=== PATIENT | female | born 1980 | race Caucasian/White ===

== ENCOUNTER 2016-05-07 15:23 | Emergency (ER) | payer OTHER ==
[2016-05-07 17:36] VITALS: BP 118/86
--- NOTE | 2016-05-07 18:07 | UC ---
FLU HPI - HPI Summary HPI Summary: DAY 2 OF COUGH, CONGESTION, ANTHONY, BODY ACHES, FEVER 102.7, CHILLS, LIGHT SENSITIVITY AND DECREASED APPETITE. NO FLU SHOT THIS SEASON. - History of Current Complaint Chief Complaint: UC Stated Complaint: COUGH CHILLS Time Seen by Provider: 05/07/16 17:36 Hx Obtained From: Patient Hx Last Menstrual Period: 05/03/16 Onset/Duration: Sudden Onset, Lasting Days, Still Present Severity Currently: Moderate Severity Initially: Severe Pain Intensity: 10 Pain Scale Used: 0-10 Numeric Associated Signs & Symptoms: Positive: Fever, Myalgia, Cough, Nasal Congestion, Headache - Allergy/Home Medications Allergies/Adverse Reactions: Allergies Allergy/AdvReac Type Severity Reaction Status Date / Time Penicillins Allergy Intermediate rash,hives,diarrea, Verified 05/07/16 17:27 sob Home Medications: Home Medications Ibuprofen [Ibuprofen 200 MG] 600 mg PO Q6H PRN 05/07/16 [History Confirmed 05/07] PMH/Surg Hx/FS Hx/Imm Hx Endocrine History Of: Reports: Thyroid Disease - CANCER, Hypothyroidism Denies: Diabetes Cardiovascular History Of: Denies: Cardiac Disorders, Hypertension, Pacemaker/ICD Respiratory History Of: Reports: Asthma Denies: COPD GI/ History Of: Denies: Ulcer Psychological History Of: Reports: Anxiety - NO MEDICATION FOR AT THIS TIME - Surgical History Surgical History: Yes Surgery Procedure, Year, and Place: 3x c-sections. full thyroidectomy. sinus surgery - Family History Known Family History: Negative: Hypertension, Diabetes - Social History Alcohol Use: Occasionally Substance Use Type: None Smoking Status (MU): Never Smoked Tobacco Have You Smoked in the Last Year: No - Immunization History Most Recent Influenza Vaccination: 2014 Most Recent Tetanus Shot: UNSURE Most Recent Pneumonia Vaccination: UNSURE Review of Systems Constitutional: Fever, Chills, Fatigue ENT: Nasal Discharge Respiratory: Cough Cardiovascular: Negative Gastrointestinal: Negative Musculoskeletal: Myalgia Neurological: Headache All Other Systems Reviewed And Are Negative: Yes Physical Exam Triage Information Reviewed: Yes Appearance: Well-Nourished, Ill-Appearing - MODERATELY Vital Signs: Initial Vital Signs Temp 100.1 F 05/07/16 17:30 Pulse 106 05/07/16 17:30 Resp 16 05/07/16 17:30 BP 118/86 05/07/16 17:30 Pulse Ox 100 05/07/16 17:30 Vital Signs Reviewed: Yes Eyes: Positive: Conjunctiva Clear ENT: Positive: Hearing grossly normal Neck: Positive: Supple, Nontender, No Lymphadenopathy Respiratory Exam: Normal Cardiovascular: Positive: Tachycardia Abdomen Description: Positive: Soft Musculoskeletal: Positive: No Edema Neurological: Positive: Alert Psychological: Positive: Age Appropriate Behavior Skin: Negative: rashes Diagnostics - Laboratory Diagnostic Studies Completed/Ordered: RAPID FLU - POS FLU A Flu Course/Dx - Differential Dx/Diagnosis Provider Diagnoses: INFLUENZA A Discharge - Discharge Plan Condition: Stable Disposition: HOME Prescriptions: Oseltamivir CAP* [Tamiflu CAP*] 75 mg PO BID #9 cap Patient Education Materials: Influenza (ED) Forms: *Work Release Referrals: Conchis Edwards MD [Medical Doctor] - If Needed Additional Instructions: SWAB POSITIVE FLU A. REST, HYDRATE, OTC MEDS FOR FEVER, HEADACHE AND BODY ACHES.
[2016-05-07] MEDS: Ibuprofen TAB* 600 MG PO ONE ×2 (18:11→18:12)
[2016-05-07] MEDS: Oseltamivir CAP* 75 MG PO ONE (18:11)
== END 2016-05-07 18:18 | disposition home or self-care (01) ==
LOC: UCEAST 15:23
DX: J10.1 Influenza due to other identified influenza virus with other respiratory manifestations (principal); Z88.0 Allergy status to penicillin
CPT/HCPCS: 87502; 99212; A9270-GY; G0463

== ENCOUNTER 2016-09-18 19:34 | Emergency (ER) | payer OTHER ==
[2016-09-18] MEDS ORDERED: NS 0.9% 1000 ML* 1,000 ML IV ONE (23:45)
[2016-09-18 23:58] LABS: Hematocrit 38 % (35-47); Hemoglobin 12.8 g/dl (12.0-16.0); Mean Corpuscular HGB Conc 33 g/dl (31-36); Mean Corpuscular Hemoglobin 29 pg (27-31); Mean Corpuscular Volume 87 fL (80-97); Mean Platelet Volume 9 um3 (7.4-10.4); Red Blood Count 4.44 10^6/ul (4.0-5.4); Red Cell Distribution Width 14 % (10.5-15); White Blood Count 8.2 10^3/ul (3.5-10.8)
[2016-09-19 00:10] LABS: ALT 12 U/L (7-52); AST 12 U/L (13-39); Albumin 4.2 g/dL (3.2-5.2); Alkaline Phosphatase 74 U/L (34-104); Amylase 32 U/L (29-103); Anion Gap 5 mmol/L (2-11); BUN/Creatinine Ratio 21.1 (8-20); Blood Urea Nitrogen 16 mg/dL (6-24); C Reactive Protein < 1.00 mg/L (< 5.00); CO2 Carbon Dioxide 29 mmol/L (22-32); Calcium 8.9 mg/dL (8.6-10.3); Chloride 101 mmol/L (101-111); EGFR African American 112.7 (>60); EGFR Non-African American 87.6 (>60); Globulin 2.8 g/dL (2-4); Glucose 79 mg/dL (70-100); Lipase 43 U/L (11.0-82.0); Potassium 3.4 mmol/L (3.5-5.0); Sodium 135 mmol/L (133-145)
[2016-09-19 01:11] LABS: Urine Bacteria 1+ (Absent); Urine Bilirubin Negative (Negative); Urine Glucose Negative (Negative); Urine Nitrite Negative (Negative)
[2016-09-19] MEDS ORDERED: Iohexol 300* (CONTRAST) 10 ML SDV IV ONE (01:25)
[2016-09-19] MEDS ORDERED: HYDROcodone/ACETAMIN 5-325 MG* 1 TAB PO ONE (02:45)
--- NOTE | 2016-09-19 02:58 | ED ---
Nelda Ta Rebecca, scribed for Elise Bland MD on 09/18/16 at 2248 . Abdominal Pain/Female - HPI Summary HPI Summary: Pt is a 35 y/o F who presents to ED c/o abd pain. Pain began gradually 3 months ago and has been intermittent since onset with the most recent episode being tonight at 1800. Pain is in the umbilical region with radiation to the shoulder blades. Pain is currently not present, but upon triage it had been severe, ranked 8/10. Episodes typically last 2 hours after eating. Sx are only present after eating food, alleviated by nothing. Additionally c/o diarrhea. Denies nausea and fever. PSHx gastric sleeve (October,) by Dr. Cruz. Was evaluated by Dr. Cruz who scheduled her for an US on October 04 to look at the gallbladder. - History of Current Complaint Chief Complaint: EDAbdPain Stated Complaint: ABD/SHOULDER BLADE PAIN Time Seen by Provider: 09/18/16 22:47 Hx Obtained From: Patient Hx Last Menstrual Period: 09/09/2016 Onset/Duration: Sudden Onset, Resolved Timing: Intermittent Episode Lasting - 2 hours Severity Initially: Severe Severity Currently: None Pain Intensity: 0 Pain Scale Used: 0-10 Numeric Location: Epigastric Radiates: Yes Radiates to: Other - Shoulder blades Aggravating Factor(s): Food Alleviating Factor(s): Nothing Associated Signs and Symptoms: Positive: Diarrhea. Negative: Fever, Nausea Allergies/Adverse Reactions: Allergies Allergy/AdvReac Type Severity Reaction Status Date / Time Penicillins Allergy Intermediate rash,hives,diarrea, Verified 09/18/16 19:51 sob PMH/Surg Hx/FS Hx/Imm Hx Endocrine/Hematology History: Reports: Hx Thyroid Disease - CANCER Denies: Hx Diabetes Cardiovascular History: Denies: Hx Hypertension, Hx Pacemaker/ICD Respiratory History: Reports: Hx Asthma, Hx Sleep Apnea Denies: Hx Chronic Obstructive Pulmonary Disease (COPD) GI History: Reports: Hx Gastroesophageal Reflux Disease - ON MEDICATION FOR Denies: Hx Ulcer Sensory History: Denies: Hx Contacts or Glasses, Hx Hearing Aid Opthamlomology History: Denies: Hx Contacts or Glasses Psychiatric History: Reports: Hx Anxiety - NO MEDICATION FOR AT THIS TIME - Cancer History Cancer Type, Location and Year: Thyroid cancer - Surgical History Surgery Procedure, Year, and Place: 3x c-sections. full thyroidectomy. sinus surgery. gastric sleeve 2016 Hx Anesthesia Reactions: Yes - NAUSEA AND VOMITING Infectious Disease History: No Infectious Disease History: Denies: Hx Clostridium Difficile, Hx Hepatitis, Hx Human Immunodeficiency Virus (HIV), Hx of Known/Suspected MRSA, Hx Shingles, Hx Tuberculosis, Hx Known/ Suspected VRE, Hx Known/Suspected VRSA, History Other Infectious Disease, Traveled Outside the [place] in Last 30 Days - Family History Known Family History: Negative: Hypertension, Diabetes - Social History Alcohol Use: Occasionally Substance Use Type: Reports: None Smoking Status (MU): Never Smoked Tobacco Have You Smoked in the Last Year: No Review of Systems Negative: Fever Positive: Abdominal Pain, Diarrhea. Negative: Nausea All Other Systems Reviewed And Are Negative: Yes Physical Exam - Summary Physical Exam Summary: General: Well appearing, no pain distress Skin: Warm, Skin Color Reflects Adequate Perfusion, Dry Eyes: EOMI, SILVERIO ENT: Pharynx normal, TMs normal Neck: Supple, nontender Respiratory: CTA, breath sounds present, no rhonchi, no wheezes, no rales Cardiovascular: RRR, no murmur, no rub, no gallop Abdomen: Soft, Non-distended, no guarding, no rebound, some periumbilical discomfort Bowel: Present Musculoskeletal: VENKATESH, No edema Neuro: Sensory/motor intact, A&Ox3, CN intact 2-12 Psych: Affect/mood appropriate Triage Information Reviewed: Yes Vital Signs On Initial Exam: Initial Vitals Temp Pulse Resp BP Pulse Ox 98.0 F 80 18 144/88 100 09/18/16 19:50 09/18/16 19:50 09/18/16 19:50 09/18/16 19:50 09/18/16 19:50 Vital Signs Reviewed: Yes Diagnostics - Vital Signs Vital Signs Temp Pulse Resp BP Pulse Ox 09/18/16 21:35 98.7 F 52 18 132/93 100 09/18/16 19:50 98.0 F 80 18 144/88 100 - Laboratory Lab Results: Lab Results 09/18/16 09/18/16 09/18/16 Range/Units 22:50 22:50 23:43 WBC 8.2 (3.5-10.8) 10^3/ul RBC 4.44 (4.0-5.4) 10^6/ul Hgb 12.8 (12.0-16.0) g/dl Hct 38 (35-47) % MCV 87 (80-97) fL MCH 29 (27-31) pg MCHC 33 (31-36) g/dl RDW 14 (10.5-15) % Plt Count 207 (150-450) 10^3/ul MPV 9 (7.4-10.4) um3 Neut % (Auto) 65.8 (38-83) % Lymph % (Auto) 28.8 (25-47) % [place] % (Auto) 3.9 (1-9) % Eos % (Auto) 0.8 (0-6) % Baso % (Auto) 0.7 (0-2) % Absolute Neuts (auto) 5.4 (1.5-7.7) 10^3/ul Absolute Lymphs (auto) 2.4 (1.0-4.8) 10^3/ul Absolute Monos (auto) 0.3 (0-0.8) 10^3/ul Absolute Eos (auto) 0.1 (0-0.6) 10^3/ul Absolute Basos (auto) 0.1 (0-0.2) 10^3/ul Absolute Nucleated RBC 0.01 10^3/ul Nucleated RBC % 0.1 Sodium 135 (133-145) mmol/L Potassium 3.4 L (3.5-5.0) mmol/L Chloride 101 (101-111) mmol/L Carbon Dioxide 29 (22-32) mmol/L Anion Gap 5 (2-11) mmol/L BUN 16 (6-24) mg/dL Creatinine 0.76 (0.51-0.95) mg/dL Est GFR ( Amer) 112.7 (>60) Est GFR (Non-Af Amer) 87.6 (>60) BUN/Creatinine Ratio 21.1 H (8-20) Glucose 79 (70-100) mg/dL Lactic Acid 0.4 L (0.5-2.0) mmol/L Calcium 8.9 (8.6-10.3) mg/dL Total Bilirubin 0.60 (0.2-1.0) mg/dL AST 12 L (13-39) U/L ALT 12 (7-52) U/L Alkaline Phosphatase 74 (34-104) U/L C-Reactive Protein < 1.00 (< 5.00) mg/L Total Protein 7.0 (6.4-8.9) g/dL Albumin 4.2 (3.2-5.2) g/dL Globulin 2.8 (2-4) g/dL Albumin/Globulin Ratio 1.5 (1-3) Amylase 32 (29-103) U/L Lipase 43 (11.0-82.0) U/L Beta HCG, Quant 0.75 mIU/mL Urine Color Urine Appearance Urine pH (5-9) Ur Specific [place] (1.010-1.030) Urine Protein (Negative) Urine Ketones (Negative) Urine Blood (Negative) Urine Nitrate (Negative) Urine Bilirubin (Negative) Urine Urobilinogen (Negative) Ur Leukocyte Esterase (Negative) Urine WBC (Auto) (Absent) Urine RBC (Auto) (Absent) Ur Squamous Epith Cells (Absent) Urine Bacteria (Absent) Urine Glucose (Negative) 09/19/16 Range/Units 00:45 WBC (3.5-10.8) 10^3/ul RBC (4.0-5.4) 10^6/ul Hgb (12.0-16.0) g/dl Hct (35-47) % MCV (80-97) fL MCH (27-31) pg MCHC (31-36) g/dl RDW (10.5-15) % Plt Count (150-450) 10^3/ul MPV (7.4-10.4) um3 Neut % (Auto) (38-83) % Lymph % (Auto) (25-47) % [place] % (Auto) (1-9) % Eos % (Auto) (0-6) % Baso % (Auto) (0-2) % Absolute Neuts (auto) (1.5-7.7) 10^3/ul Absolute Lymphs (auto) (1.0-4.8) 10^3/ul Absolute Monos (auto) (0-0.8) 10^3/ul Absolute Eos (auto) (0-0.6) 10^3/ul Absolute Basos (auto) (0-0.2) 10^3/ul Absolute Nucleated RBC 10^3/ul Nucleated RBC % Sodium (133-145) mmol/L Potassium (3.5-5.0) mmol/L Chloride (101-111) mmol/L Carbon Dioxide (22-32) mmol/L Anion Gap (2-11) mmol/L BUN (6-24) mg/dL Creatinine (0.51-0.95) mg/dL Est GFR ( Amer) (>60) Est GFR (Non-Af Amer) (>60) BUN/Creatinine Ratio (8-20) Glucose (70-100) mg/dL Lactic Acid (0.5-2.0) mmol/L Calcium (8.6-10.3) mg/dL Total Bilirubin (0.2-1.0) mg/dL AST (13-39) U/L ALT (7-52) U/L Alkaline Phosphatase (34-104) U/L C-Reactive Protein (< 5.00) mg/L Total Protein (6.4-8.9) g/dL Albumin (3.2-5.2) g/dL Globulin (2-4) g/dL Albumin/Globulin Ratio (1-3) Amylase (29-103) U/L Lipase (11.0-82.0) U/L Beta HCG, Quant mIU/mL Urine Color Yellow Urine Appearance Cloudy Urine pH 5.0 (5-9) Ur Specific [place] 1.030 (1.010-1.030) Urine Protein Negative (Negative) Urine Ketones Trace H (Negative) Urine Blood Negative (Negative) Urine Nitrate Negative (Negative) Urine Bilirubin Negative (Negative) Urine Urobilinogen Negative (Negative) Ur Leukocyte Esterase Trace H (Negative) Urine WBC (Auto) 1+(6-10/hpf) H (Absent) Urine RBC (Auto) 1+(3-5/hpf) H (Absent) Ur Squamous Epith Cells Present H (Absent) Urine Bacteria 1+ H (Absent) Urine Glucose Negative (Negative) Result Diagrams: 09/18/16 22:50 09/18/16 22:50 Lab Statement: Any lab studies that have been ordered have been reviewed, and results considered in the medical decision making process. - CT CT Abd/Pel CT Interpretation: No Acute Changes - Normal postoperative appearance of the stomach. Mild splenomegaly. No definite acute pathology. CT Interpretation Completed By: Radiologist - Ultrasound No standard instances Ultrasound Interpretation Completed By: Radiologist - Gallbladder US: The liver is enlarged measuring 18.5 cm in length. Liver contour and echogenicity are normal. No intrahepatic biliary dilation. No hepatic masses visualized. The portal and hepatic veins are patent. The common bile duct is within normal limits measuring 3.6 cm. Multiple gallstones. The gallbladder wall is normal in thickness measuring 1.8 mm. No earicholecystic fluid. Negative sonographic Viera's sign reported. The right kidney and visualized portions of the pancreatic head and body are unremarkable. The pancreatic tail is partially obscured by overlying bowel gas. Visualized portions of the abdominal aorta and IVC are unremarkable. Re-Evaluation - Re-Evaluation First Eval Re-Evaluation Time: 02:47 Change: Improved Comment: Discussed results and findings with the patient. She continues to be without pain. Discussed D/C plan with the patient. Abdominal Pain Fem Course/Dx - Course Course Of Treatment: 35 yo female s/p gastric sleeve with jorge umbilical tenderness u/s did show gall stones with out a viera sign labs normal and ct abd/pelvis normal. Pt given a few norco to go, close followup with [facility] - Diagnoses Provider Diagnoses: Abdominal pain, Gallstones Discharge - Discharge Plan Condition: Stable Disposition: HOME Patient Education Materials: Gallstones (ED), Abdominal Pain (ED) Referrals: Conchis Edawrds MD [Primary Care Provider] - 3 Days The documentation as recorded by the Nelda ortega Rebecca accurately reflects the service I personally performed and the decisions made by Baldo ferreira Justine, MD.
[2016-09-19 03:16] VITALS: BP 131/83
--- NOTE | 2016-09-19 08:23 | RAD ---
Indication: Abdominal pain. Post gastric sleeve bariatric surgery. Comparison: Subsequent abdomen CT September 19, 2016. Technique: RIGHT upper quadrant ultrasound. Report: Appropriate direction flow documented in the portal and hepatic veins. 18.5 cm liver is normal in echogenicity. Negative for focal hepatic lesions. Negative for intrahepatic biliary dilatation. 3.6 mm common bile duct. No ductal stones visualized. Adequately distended gallbladder with innumerable dependent shadowing stones. Normal gallbladder wall thickness at 1.8 mm. Negative for pericholecystic fluid. Negative for sonographic Viera's sign. The pancreatic tail is partially obscured due to bowel gas with the visualized pancreas unremarkable. Negative for ascites. 12.1 cm RIGHT kidney is unremarkable. IMPRESSION: Cholelithiasis without secondary findings to favor acute cholecystitis.
--- NOTE | 2016-09-19 08:42 | RAD ---
INDICATION: Periumbilical pain. Post gastric sleeve bariatric surgery in November 2015. History of thyroid carcinoma. Cholelithiasis on RIGHT upper quadrant ultrasound September 18, 2016. COMPARISON: September 18, 2016 RIGHT upper quadrant ultrasound and May 21, 2008 CT. TECHNIQUE: Multidetector CT images were obtained from the lung bases to the ischial tuberosities with 100 mL Omnipaque 300 IV and oral contrast. Multiplanar reformation. REPORT: 4 mm nodule at the lateral basal segment of the LEFT lower lobe on image 1 is unchanged compared with the 2009 exam without concern. Unremarkable liver. Negative for biliary dilatation. Gallstones visualized ultrasound are CT occult. No CT abnormality of the gallbladder. Unremarkable pancreas. Top normal 12.5 cm length spleen without change. Postsurgical change of gastric sleeve procedure. Negative for CT abnormality of the upper GI, small bowel, retrocecal appendix, or colon. Enteric contrast extends to the rectum. Negative for ascites, free air, or significant hernias. Normal adrenal glands. Unremarkable kidneys with symmetric nephrograms and pyelograms. No suspicious finding along the course of the nondilated ureters. Unremarkable partially distended urinary bladder. 8.6 x 4.9 x 7.3 cm anteverted uterus. Moderate fluid present in the endometrial cavity. Surgical clip at the RIGHT adnexal region. No adnexal region lesions evident. Negative for lymphadenopathy. Normal diameter abdominal aorta and iliac arteries. Physiologic distention of the IVC. Negative for suspicious osseous lesions. IMPRESSION: 1. Postsurgical change of gastric sleeve bariatric surgery. No acute pathologic finding of the alimentary tract evident. 2. Gallstones visualized ultrasound are CT occult. No CT abnormality of the gallbladder. 3. Top normal size spleen without change compared with the 2009 exam. Negative for lymphadenopathy.
== END 2016-09-19 03:16 | disposition home or self-care (01) ==
LOC: ED 19:34
DX: R10.13 Epigastric pain (principal); K80.80 Other cholelithiasis without obstruction; Z32.02 Encounter for pregnancy test, result negative; R19.7 Diarrhea, unspecified; J45.909 Unspecified asthma, uncomplicated; K21.9 Gastro-esophageal reflux disease without esophagitis; F41.9 Anxiety disorder, unspecified; Z85.850 Personal history of malignant neoplasm of thyroid; E89.0 Postprocedural hypothyroidism; Z98.84 Bariatric surgery status; Z88.0 Allergy status to penicillin
CPT/HCPCS: 36415; 74177; 76705; 80053; 81003; 81015; 82150; 83605; 83690; 84702; 85025; 86140; 87086; 99283; Q9967

== ENCOUNTER 2016-09-26 13:08 | Day surgery (SDC) | payer OTHER ==
--- NOTE | 2016-09-21 17:46 | HP ---
CC: Tad Dempsey * HISTORY AND PHYSICAL: DATE OF ADMISSION/SURGERY: 09/26/16 PATIENT OF: Dr. Alexandre Cruz. (DICTATED BY TAMARA KOLB) CHIEF COMPLAINT: Symptomatic cholelithiasis and biliary colic. HISTORY OF PRESENT ILLNESS: Margaret is a pleasant 35-year-old female who is well known to our practice from prior laparoscopic sleeve gastrectomy back in November 2015. The patient has done extremely well since her bariatric surgery with total weight loss of approximately 100 pounds. She reports occasional episodes of right upper quadrant and epigastric abdominal pain on and off for the past few months. She described it as a dull aching pain that converts to sharp episodes usually postprandial especially after pizza or other fatty meals. Pain typically localized to the right upper quadrant and epigastric area with radiation to her back with associated nausea and occasional vomiting. She also has noticed significant changes in her bowel habits mostly with loose bowel movement and diarrhea as well as more abdominal bloating. On a couple of occasions, she also noticed a light- colored loose stool as well as dark tea-colored urine, but denied any jaundice, fever, or chills. She had a really significant episode of pain 3 days ago, for which she went to the emergency room for evaluation. She had a right upper quadrant sonogram that revealed evidence of cholelithiasis without any evidence of acute cholecystitis or common bile duct dilatation. Given her ongoing symptoms, the patient was recommended to follow up with Dr. Cruz to discuss gallbladder surgery. She was seen earlier this week by Dr. Cruz and found to be a good candidate for a laparoscopic cholecystectomy, for which she presented to the office today to discuss surgery. Since her ED visit earlier this week, the patient has done much better by avoiding any fatty food intake. She otherwise is a relatively healthy 35-year-old female. PAST MEDICAL HISTORY: As mentioned above. Significant for morbid obesity, for which she had a laparoscopic sleeve gastrectomy with almost a 100-pound weight loss since back in November 2015. She also has a history of GERD, hypothyroidism , and cholelithiasis. PAST SURGICAL HISTORY: Significant for: 1. Total thyroidectomy back in 2010. 2. Laparoscopic sleeve gastrectomy in November 2015. 3. Septoplasty and sinus surgery. 4. She also had a section 3 times as well as dilatation and curettage of her cervix. CURRENT MEDICATIONS: Her medications at home include: 1. Synthroid 37 mcg 1 tablet once daily. 2. ProAir HFA 180 mcg 2 puffs by mouth every 4 hours if needed for shortness of breath and the patient reports that she has used it maybe once or twice since her surgery last year. 3. She is also on Biotin 1 tablet once daily. 4. Vitamin D once daily. 5. Centrum Ultra Women Multivitamin 2 tablets once a day. 6. Vitamin B12 one tablet once daily. ALLERGIES: She is allergic to PENICILLIN. FAMILY HISTORY: She denies any family history of gallbladder disease. SOCIAL HISTORY: The patient is . She never smoked. She drinks alcohol on occasion, and caffeine intake is minimal. REVIEW OF SYSTEMS: See HPI, otherwise negative. She denies any headache, dizziness, blurred vision, or double vision. No sore throat, shortness of breath, cough, or wheezing. No chest pain, palpitation, or syncope. She admits to right upper quadrant and epigastric pain with radiation to her back and associated nausea and occasional vomiting, but denies any fever or chills. She also notes occasional changes in the color of stool and urine, but denies any visible jaundice. No flank pain, dysuria, hematuria, or urinary frequency. PHYSICAL EXAMINATION GENERAL: She is a pleasant, healthy appearing young female in no acute distress or discomfort at the time of this visit. VITAL SIGNS: Today was blood pressure of 122/82, respirations of 16, pulse of 78, temperature of 98.6. She weighs 157 pounds on a 5-foot 6-inch frame with BMI of 25. HEENT: Sclerae anicteric. PERRLA. EOMs intact. Oropharynx is pink and moist with no exudate. NECK: Supple. Trachea midline. No cervical adenopathy, thyromegaly, or JVD. LUNGS: Clear to auscultation bilaterally. No rales, wheezes, or rhonchi noted. HEART: Regular rate and rhythm. Normal S1 and S2 without rubs, murmurs, or gallops. BACK: Normal curvature. No CVA tenderness. BREAST EXAM: Deferred at this time. ABDOMEN: Soft and nondistended. There is very mild right upper quadrant and epigastric tenderness on palpation, but no guarding, rigidity, or rebound tenderness noted. Incisions from prior sleeve gastrectomy noted, well healed. There is no evidence of any ventral hernias, masses, or hepatosplenomegaly. Viera's sign was negative. EXTREMITIES: Without cyanosis, clubbing, or edema. RECTAL: Exam deferred at this time. NEUROLOGIC: Grossly intact. IMPRESSION: A 35-year-old female who underwent laparoscopic sleeve gastrectomy in November 2015 with successful weight loss up to 100 pounds up to date, who has signs and symptoms consistent with biliary colic and symptomatic cholelithiasis. PLAN: We discussed with the patient proceeding with a laparoscopic cholecystectomy to be performed by Dr. Cruz sometime next week. The rationale, indications, risks, and benefits of surgery were discussed with her today. Risks include but not limited to infection, bleeding, or injury to adjacent structures. She seems to be well informed and wishes to proceed with surgery. She was advised to continue her diet restriction regarding fatty food intake and she will be scheduled for her surgery next Sunday on 09/26/16, and we will plan to see her postoperatively a week after her surgery. TAMARA KOLB [id number]/[facility] [place] #: [id number] [facility] CENTERAkin
[~2016-09-26 13:08] MED LIST: Buffered Lidocaine 0.9% SYRIN* 5 ML/SYR SYRINGE INTRADERM ONE; Buffered Lidocaine 0.9% SYRIN* 5 ML/SYR SYRINGE ONE; Clindamycin 900 MG IVPREMIX(* 900 MG/50 ML SDV IV ONE
[2016-09-26] MEDS ORDERED: Bupivacaine 0.5% W/EPI SDV* 10 ML VIAL INJ ONE (13:17)
[2016-09-26] MEDS ORDERED: Midazolam* 1 MG/ML 5 ML VIAL (5 MG) ONE (13:57)
[2016-09-26] MEDS ORDERED: Scopolamine 1.5 mg* PATCH ONE (13:57)
[2016-09-26] MEDS ORDERED: fentaNYL* 50 MCG/ML 2 ML VIAL (100 MCG VIAL) ONE ×2 (14:02→14:27)
[2016-09-26] MEDS ORDERED: Propofol* 10 MG/ML 20 ML BTL IV PUSH ONE (14:02)
[2016-09-26] MEDS ORDERED: Dexamethasone IV* 4 MG/ML 1 ML (4 MG) ONE (14:02)
[2016-09-26] MEDS ORDERED: Atracurium* 10 MG/ML 10 ML VIAL ONE (14:02)
[2016-09-26] MEDS ORDERED: Ketorolac INJ* 30 MG/ML 1 ML VIAL ONE (14:46)
[2016-09-26] MEDS ORDERED: oxyCODONE TAB* 5 MG TAB PO PRN (14:48)
[2016-09-26] MEDS ORDERED: HYDROmorphone* 1 MG/ML 1 ML SYR IV PRN (14:48)
[2016-09-26] MEDS ORDERED: fentaNYL* 50 MCG/ML 2 ML VIAL (100 MCG VIAL) IV PRN (14:48)
[2016-09-26] MEDS ORDERED: HYDROcodone/ACETAMIN 5-325 MG* 1 TAB PO PRN (14:48)
[2016-09-26] MEDS ORDERED: DiMENhydriNATE IV* 50 MG/ML VIAL IV PUSH PRN (14:48)
[2016-09-26] MEDS ORDERED: Ondansetron INJ* 2 MG/ML VIAL IV PRN (14:48)
[2016-09-26] MEDS ORDERED: Neostigmine Methylsulfate* 2 MG/2 ML SYRINGE ONE (14:50)
[2016-09-26] MEDS ORDERED: Glycopyrrolate IV* 0.2 MG/ML 1 ML VIAL ONE (14:50)
[2016-09-26] MEDS ORDERED: oxyCODONE/Acetamin 5/325 MG* TAB PO PRN (15:36)
[2016-09-26] MEDS ORDERED: Labetalol IV* 5 MG/ML 20 ML VIAL ONE (16:08)
[2016-09-26] MEDS ORDERED: HYDROcodone/ACETAMIN 5-325 MG* 1 TAB ONE (16:43)
[2016-09-26 17:06] VITALS: BP 146/93
--- NOTE | 2016-09-27 14:39 | OP ---
CC: Conchis Edwards MD * DATE OF OPERATION: 09/26/16 - [facility] DATE OF : 84 SURGEON: Alexandre Cruz MD CAGE OPERATOR: TAMARA May ANESTHESIOLOGIST: Sudhir Fuller MD ANESTHESIA: General endotracheal. PRE-OP DIAGNOSIS: Symptomatic cholelithiasis. POST-OP DIAGNOSIS: Symptomatic cholelithiasis. OPERATIVE PROCEDURE: Laparoscopic cholecystectomy. ESTIMATED BLOOD LOSS: Minimal. IV FLUIDS: Crystalloids. SPECIMEN: Gallbladder. DRAINS: None. COMPLICATIONS: None. COUNTS: Instrument, needle, sponge counts correct. DESCRIPTION OF PROCEDURE: The patient was brought to the operating room, placed on the table supine. Sequential compression devices were placed on both lower extremities. General anesthesia was administered. Her abdomen was prepped and draped in the usual sterile fashion. She received appropriate intravenous antibiotics. Local anesthetic was infiltrated into the skin and soft tissue at the incision sites. Entry to the abdomen was using a Veress needle in the right upper quadrant above the umbilical region in the area of her previous scar. After accessing the peritoneal cavity, carbon dioxide was insufflated to a pressure of 15 mmHg. A 5-mm optical trocar was then placed through the same site after removing the Veress needle and under direct visualization, two additional 5-mm trocars were placed in the right upper quadrant and an 11-mm trocar was placed in the subxiphoid position. Inspection of the sleeve gastrectomy site revealed that there was a single adhesion from the antrum to the anterior abdominal wall and this was sharply lysed. The sleeve gastrectomy appeared to be normal. Gallbladder appeared to be distended with no acute inflammatory changes. There were some adhesions of lesser omentum to the gallbladder fundus. The fundus was retracted superiorly. Adhesions were taken down using a combination of sharp blunt dissection and cautery. The peritoneum was incised that was investing gallbladder medially and laterally in order to define the gallbladder wall and to dissect out the infundibulocystic duct junction. The cystic artery was identified and dissected out freely until critical views obtained. Endoscopic clips were placed to doubly clip the cystic duct and cystic artery and then each was divided, and then the gallbladder was freed from its attachments to the liver using the scissors and cauteries, staying in the avascular plane. There was a generous mesentery to the gallbladder, which made the dissection rather straightforward. Once the gallbladder was freed, it was placed into an endoscopic retrieval bag and retrieved through the subxiphoid port site. Inspection revealed the clips to be intact and hemostasis was assured. The ports were removed under direct visualization and carbon dioxide was released. [id number]/[facility] #: [id number] BRITTNY
== END 2016-09-26 17:06 | disposition home or self-care (01) ==
LOC: OR 13:08
PROVIDERS: ATTEND Surgery
DX: K80.10 Calculus of gallbladder with chronic cholecystitis without obstruction (principal); K21.9 Gastro-esophageal reflux disease without esophagitis; E03.9 Hypothyroidism, unspecified; J45.909 Unspecified asthma, uncomplicated; Z98.84 Bariatric surgery status
CPT/HCPCS: 88304; A9270-GY; J1100; J1885; J2250; J2704; J3010

== ENCOUNTER 2017-08-14 13:02 | Emergency (ER) | payer OTHER ==
[2017-08-14] MEDS ORDERED: Thiamine IV 100 MG, Folic Acid IV* 1 MG, Multiple Vitamin IV ADULT* 10 ML in NS 0.9% 10... IV ONE (13:52)
--- NOTE | 2017-08-14 14:12 | ED ---
Abdominal Pain/Female - HPI Summary HPI Summary: Bariatric sleeve patient here with sudden onset abdominal pain and bloating while trying to eat a piece of pizza earlier today. She reports she's eaten pizza many times since her surgery without difficulty and is unsure why she is having this abrupt pain. She reports it's just above her navel and feels sharp. Associated symptom of nausea and bloating. No vomiting. She denies fevers, chills, respiratory symptoms, chest pain, shortness of breath, diarrhea , melena, hematochezia, urinary symptoms, vaginal symptoms. She's had multiple abdominal surgeries including but not limited to cholecystectomy, 2 C-sections and a sleeve bariatric surgery 2 years ago w/ Krystle. She has a history of gastric ulcer which was controlled with omeprazole (still takes) and famotidine (d/c'd). She has since stopped the famotidine and reports her symptoms today do not feel like her previous gastric ulcer. Denies use of NSAIDs, drink alcohol infrequently, denies tobacco. She admits she's been struggling with iron deficiency as of late and has been consulting with Dr. Cotto. She is supposed to follow-up with gastroenterology for an endoscope however this has not been arranged as of yet. - History of Current Complaint Chief Complaint: EDAbdPain Stated Complaint: ABD PAIN Time Seen by Provider: 08/14/17 13:12 Hx Obtained From: Patient Hx Last Menstrual Period: 09/09/2016 Pain Intensity: 9 Allergies/Adverse Reactions: Allergies Allergy/AdvReac Type Severity Reaction Status Date / Time Penicillins Allergy Intermediate Rash Verified 08/14/17 14:28 Home Medications: Home Medications Ascorbic Acid TAB* [Vitamin C TAB*] 500 mg PO DAILY 08/14/17 [History Confirmed 08/14/17] Ferrous Sulfate TAB* 325 mg PO DAILY 08/14/17 [History Confirmed 08/14/17] Ipratropium [place] [Ipratropium [place]] 1 spray NASAL DAILY 08/14/17 [History Confirmed 08/14/17] PMH/Surg Hx/FS Hx/Imm Hx Previously Healthy: Yes Endocrine/Hematology History: Reports: Hx Thyroid Disease - CANCER Denies: Hx Anticoagulant Therapy, Hx Blood Disorders, Hx Diabetes Cardiovascular History: Denies: Hx Hypertension, Hx Pacemaker/ICD Respiratory History: Reports: Hx Asthma, Hx Sleep Apnea - resolved with weight loss Denies: Hx Chronic Obstructive Pulmonary Disease (COPD) GI History: Reports: Hx Gastroesophageal Reflux Disease - ON MEDICATION FOR, Hx Ulcer - tx'd w/ omeprazole and famotidine - followed by [facility]o, Other GI Disorders - s/p Sleeve History: Denies: Hx Dialysis, Hx Renal Disease Sensory History: Denies: Hx Contacts or Glasses, Hx Hearing Aid Opthamlomology History: Denies: Hx Contacts or Glasses Psychiatric History: Reports: Hx Anxiety - NO MEDICATION FOR AT THIS TIME - Cancer History Cancer Type, Location and Year: Thyroid cancer Hx Chemotherapy: No - radiation - Surgical History Surgery Procedure, Year, and Place: 3x c-sections. full thyroidectomy. sinus surgery. gastric sleeve 2016. D&C's Hx Anesthesia Reactions: Yes - NAUSEA AND VOMITING - gets a scopalamine patch in previous surgeries - Immunization History Immunizations Up to Date: Yes Infectious Disease History: No Infectious Disease History: Denies: Hx Clostridium Difficile, Hx Hepatitis, Hx Human Immunodeficiency Virus (HIV), Hx of Known/Suspected MRSA, Hx Shingles, Hx Tuberculosis, Hx Known/ Suspected VRE, Hx Known/Suspected VRSA, History Other Infectious Disease, Traveled Outside the [place] in Last 30 Days - Family History Known Family History: Negative: Hypertension, Diabetes - Social History Occupation: Employed Full-time Lives: With Family Alcohol Use: Occasionally Hx Substance Use: No Substance Use Type: Reports: None Hx Tobacco Use: No Smoking Status (MU): Never Smoked Tobacco Have You Smoked in the Last Year: No Review of Systems Constitutional: Negative Negative: Fever, Chills, Fatigue Eyes: Negative ENT: Negative Cardiovascular: Negative Negative: Palpitations, Chest Pain Respiratory: Negative Positive: Abdominal Pain, Nausea. Negative: Vomiting, Diarrhea Genitourinary: Negative Negative: burning, dysuria, discharge, frequency, flank pain, hematuria, incontinence, pain, urgency Musculoskeletal: Negative Skin: Negative Neurological: Negative Psychological: Normal All Other Systems Reviewed And Are Negative: Yes Physical Exam Triage Information Reviewed: Yes Vital Signs On Initial Exam: Initial Vitals Temp Pulse Resp BP Pulse Ox 99.3 F 84 18 137/93 99 08/14/17 13:03 08/14/17 13:03 08/14/17 13:03 08/14/17 13:03 08/14/17 13:03 Vital Signs Reviewed: Yes Appearance: Positive: Pain Distress Skin: Positive: Warm, Skin Color Reflects Adequate Perfusion, Dry - no generalized pallor Head/Face: Positive: Normal Head/Face Inspection Eyes: Positive: Normal, EOMI, Conjunctiva Clear - anicteric sclera ENT: Positive: Normal ENT inspection, Hearing grossly normal, Pharynx normal - mucosa moist Respiratory/Lung Sounds: Positive: Clear to Auscultation, Breath Sounds Present Cardiovascular: Positive: Normal, RRR Abdomen Description: Positive: No Organomegaly, Soft, Other: - upper ab across TTP - no rebounding; no lower ab tenderness Pelvic Exam: Positive: Other - deferred Musculoskeletal: Positive: Normal, Strength/ROM Intact Neurological: Positive: Normal, Sensory/Motor Intact, Alert, Oriented to Person Place, Time, CN Intact II-III Psychiatric: Positive: Normal Diagnostics - Vital Signs Vital Signs Temp Pulse Resp BP Pulse Ox 08/14/17 13:03 99.3 F 84 18 137/93 99 - Laboratory Result Diagrams: 08/14/17 14:05 08/14/17 14:05 Lab Statement: Any lab studies that have been ordered have been reviewed, and results considered in the medical decision making process. Re-Evaluation - Re-Evaluation Second Eval Change: Improved - pain improved from 9/10 to 4/10 - nausea resolved Abdominal Pain Fem Course/Dx - Course Course Of Treatment: Patient here with sudden onset upper abdominal pain with sharpness, bloating and spasm. Associated symptoms of nausea. She's had multiple abdominal surgeries and although she reports she's been eating well without difficulty, suspect she had an esophageal or gastric spasm while eating lunch today. CT does reveal hepatosplenomegaly with a negative mono and no elevated white blood cell count. Additionally there is no obstruction or appendicitis. Discussed this may be poor digestion and advised she return to clears for 48 hours. Will add GI cocktail as well as famotidine never follow- up with Dr. Casas tomorrow she may benefit from an edoscope as she's also been struggling w/ fe def anemia. Review danger signs and symptoms of when to return to the emergency department. Patient agrees with plan. - Diagnoses Provider Diagnoses: Abdominal pain Discharge - Sign-Out/Discharge Documenting (check all that apply): Discharge/Admit/Transfer - Discharge Plan Condition: Stable Disposition: HOME Prescriptions: Famotidine TAB* [Pepcid 20 MG TAB*] 40 mg PO DAILY #7 tab Patient Education Materials: Gastritis (ED), Nutrition after Bariatric Surgery (DC) Referrals: Conchis Edwards MD [Primary Care Provider] - Ata Casas MD [Medical Doctor] - Additional Instructions: Revert to post surgical sleeve diet of clear liquids until cleared by Dr. Casas. Call tomorrow to schedule an appointment. You may benefit from an endoscopy, especially with your anemia. Continue omeprazole and add famotidine - sent to pharmacy. Avoid stimulants (ie. caffeine, alcohol, etc) *if you develop worsening of symptoms, return to ED - Billing Disposition and Condition Condition: STABLE Disposition: HOME
[2017-08-14 14:15] LABS: ABS Basophils 0 10^3/ul (0-0.2); ABS Eosinophils 0.1 10^3/ul (0-0.6); ABS Lymphocytes 0.8 10^3/ul (1.0-4.8); ABS Monocytes 0.3 10^3/ul (0-0.8); ABS Neutrophils 3.4 10^3/ul (1.5-7.7); ABS Nucleated RBC 0 10^3/ul; Eosinophil % 1.2 % (0-6); Hematocrit 34 % (35-47); Hemoglobin 10.9 g/dl (12.0-16.0); Lymphocyte % 17.7 % (25-47); Mean Corpuscular HGB Conc 32 g/dl (31-36); Mean Corpuscular Hemoglobin 27 pg (27-31); Mean Corpuscular Volume 82 fL (80-97); Mean Platelet Volume 8.8 um3 (7.4-10.4); Nucleated Red Blood Cells % 0; Platelet Count 191 10^3/ul (150-450); Red Blood Count 4.08 10^6/ul (4.0-5.4); Red Cell Distribution Width 18 % (10.5-15); White Blood Count 4.5 10^3/ul (3.5-10.8)
[2017-08-14] MEDS ORDERED: PROCHLORPERAZINE INJ 5 MG/ML 2 ML VIAL IV PRN (14:22)
[2017-08-14] MEDS ORDERED: Morphine VIAL* 4 MG/ML VIAL (1 ml vial) IV ONE (14:22)
[2017-08-14 14:30] LABS: INR 0.99 (0.77-1.02)
[2017-08-14 14:32] LABS: EGFR Non-African American 92.7 (>60)
[2017-08-14] MEDS ORDERED: Iohexol 300* (CONTRAST) 10 ML SDV IV ONE (14:46)
[2017-08-14 15:19] LABS: Urine Appearance Clear; Urine Blood Negative (Negative); Urine Color Straw; Urine Ketones Negative (Negative); Urine Protein Negative (Negative); Urine Specific Gravity 1.006 (1.010-1.030); Urine Urobilinogen Negative (Negative)
--- NOTE | 2017-08-14 16:18 | RAD ---
INDICATION: Periumbilical pain COMPARISON: CT abdomen pelvis September 19, 2016 TECHNIQUE: Axial source images were obtained from the hemidiaphragms to the symphysis pubis following administration of oral and intravenous contrast. 91 mL Omnipaque 300 was utilized. Coronal and sagittal reconstructed images were acquired. Lung bases: The lung bases are clear. Liver: The liver is mildly enlarged. There are no masses. There is no ductal dilatation. Gallbladder: Cholecystectomy. Spleen: The spleen is at the upper range of normal in size there is a maximum transverse dimension of 13 cm. Pancreas: There is no focal pancreatic mass or ductal dilatation. Adrenal glands: There is no evidence of adrenal mass. Kidneys: The kidneys are normal in size and position. There are prompt nephrograms and there is prompt excretion bilaterally. There are no renal parenchymal masses. There is no evidence of nephrolithiasis. Adenopathy: There is no evidence of adenopathy by size criteria. Fluid collections: There are no free or localized fluid collections. Vessels:There are no significant atherosclerotic changes involving the aorta. There is no focal aneurysm. The iliac vessels are normal in caliber. The IVC appears normal. GI tract: There is presumed bariatric surgery. The upper GI tract is otherwise unremarkable. There is stool within the colon but there are no findings to suggest obstruction Pelvic organs: The uterus is mildly prominent. The adnexa are normal Bladder: There are no bladder masses. Abdominal and pelvic soft tissues: The extraperitoneal abdominal and pelvic soft tissues appear normal.. Osseous structures: There are no acute osseous findings. Other: None IMPRESSION: 1. Borderline hepatosplenomegaly 2. Cholecystectomy. 3. Bariatric surgery. 4. No acute CT findings
[2017-08-14] MEDS ORDERED: Al Hydrox/Mg Hydrox/Simet LIQ* 30 ML UDC PO ONE (18:23)
[2017-08-14] MEDS ORDERED: Lidocaine 2% VISCOUS* 15 ML UDC PO ONE (18:23)
[2017-08-14 19:16] VITALS: BP 148/74
== END 2017-08-14 19:14 | disposition home or self-care (01) ==
LOC: ED 13:02
DX: R10.10 Upper abdominal pain, unspecified (principal); R11.0 Nausea; R16.2 Hepatomegaly with splenomegaly, not elsewhere classified; Z98.84 Bariatric surgery status; Z90.49 Acquired absence of other specified parts of digestive tract; Z88.0 Allergy status to penicillin
CPT/HCPCS: 36415; 74177; 80053; 81003; 82150; 82272; 83605; 83690; 83735; 84702; 85025; 85610; 85730; 86140; 86308; 86850; 86900; 86901; 96365; 96367; 96375; 99282; A9270-GY; J2270; J3411; Q9967

== ENCOUNTER 2018-04-02 15:17 | Emergency (ER) | payer OTHER ==
[2018-04-02 16:35] VITALS: BP 154/102
--- NOTE | 2018-04-02 17:00 | ED ---
Respiratory - HPI Summary HPI Summary: Ms. Saldaña presented complaining of URI symptoms that started yesterday. She complains of sore throat, nasal congestion, cough productive of green sputum and diffuse myalgias and arthralgias. She is not sure if she's had a fever - History of Current Complaint Chief Complaint: UCGeneralIllness Stated Complaint: COUGH,BODYACHES Time Seen by Provider: 04/02/18 16:21 Hx Obtained From: Patient Onset/Duration: Gradual Onset Timing: Constant Initial Severity: Mild Current Severity: Moderate Pain Intensity: 6 Character: Cough (Productive) Sputum Color: Green Aggravating Factor(s): URI Alleviating Factor(s): Nothing Associated Signs and Symptoms: Chills, Diaphoresis, Nasal Congestion - Allergy/Home Medications Allergies/Adverse Reactions: Allergies Allergy/AdvReac Type Severity Reaction Status Date / Time Penicillins Allergy Intermediate Rash Verified 04/02/18 16:21 PMH/Surg Hx/FS Hx/Imm Hx Previously Healthy: Yes Endocrine/Hematology History: Reports: Hx Thyroid Disease - CANCER Denies: Hx Anticoagulant Therapy, Hx Blood Disorders, Hx Diabetes Cardiovascular History: Denies: Hx Hypertension, Hx Pacemaker/ICD Respiratory History: Reports: Hx Asthma, Hx Sleep Apnea - resolved with weight loss Denies: Hx Chronic Obstructive Pulmonary Disease (COPD) GI History: Reports: Hx Gastroesophageal Reflux Disease - ON MEDICATION FOR, Hx Ulcer - tx'd w/ omeprazole and famotidine - followed by Augusto, Other GI Disorders - s/p Sleeve History: Denies: Hx Dialysis, Hx Renal Disease Sensory History: Denies: Hx Contacts or Glasses, Hx Hearing Aid Opthamlomology History: Denies: Hx Contacts or Glasses Psychiatric History: Reports: Hx Anxiety - NO MEDICATION FOR AT THIS TIME - Cancer History Cancer Type, Location and Year: Thyroid cancer Hx Chemotherapy: No - radiation - Surgical History Surgery Procedure, Year, and Place: 3x c-sections. full thyroidectomy. sinus surgery. gastric sleeve 2016. D&C's Hx Anesthesia Reactions: Yes - NAUSEA AND VOMITING - gets a scopalamine patch in previous surgeries Infectious Disease History: No Infectious Disease History: Denies: Hx Clostridium Difficile, Hx Hepatitis, Hx Human Immunodeficiency Virus (HIV), Hx of Known/Suspected MRSA, Hx Shingles, Hx Tuberculosis, Hx Known/ Suspected VRE, Hx Known/Suspected VRSA, History Other Infectious Disease, Traveled Outside the [place] in Last 30 Days - Family History Known Family History: Negative: Hypertension, Diabetes - Social History Alcohol Use: Occasionally Hx Substance Use: No Substance Use Type: Reports: None Hx Tobacco Use: No Smoking Status (MU): Never Smoked Tobacco Have You Smoked in the Last Year: No Review of Systems Positive: Chills, Fatigue Eyes: Negative Positive: Sore Throat, Nasal Discharge Positive: Cough Positive: Arthralgia, Myalgia Positive: Headache All Other Systems Reviewed And Are Negative: Yes Physical Exam - Summary Physical Exam Summary: She is nontoxic in appearance with stable vital signs. Triage Information Reviewed: Yes Vital Signs On Initial Exam: Initial Vitals Temp Pulse Resp BP Pulse Ox 98.0 F 94 20 154/102 100 04/02/18 16:28 04/02/18 16:28 04/02/18 16:28 04/02/18 16:28 04/02/18 16:28 Vital Signs Reviewed: Yes Appearance: Positive: Well-Appearing Skin: Positive: Warm, Dry Head/Face: Positive: Normal Head/Face Inspection Eyes: Positive: Normal ENT: Positive: Pharynx normal, Nasal congestion, TMs normal Neck: Positive: Supple, Nontender, No Lymphadenopathy Respiratory/Lung Sounds: Positive: Breath Sounds Present Cardiovascular: Positive: Normal, RRR Abdomen Description: Positive: Nontender Musculoskeletal: Positive: Normal Neurological: Positive: Normal Psychiatric: Positive: Normal Diagnostics - Vital Signs Vital Signs Temp Pulse Resp BP Pulse Ox 04/02/18 16:28 98.0 F 94 20 154/102 100 - Laboratory Lab Results: Lab Results 04/02/18 Range/Units 16:44 Influenza A (Rapid) Negative (Negative) Influenza B (Rapid) Negative (Negative) Lab Statement: Any lab studies that have been ordered have been reviewed, and results considered in the medical decision making process. Disposition - Course Course Of Treatment: Ms. Saldaña presented with viral symptoms. Her influenza swab was negative but she certainly presents with influenza-like illness early on in this may be a false negative. I spoke with her about it and she elected to have a prescription for Tamiflu. - Diagnoses Provider Diagnoses: Influenza-like illness Discharge - Sign-Out/Discharge Documenting (check all that apply): Patient Departure All imaging exams completed and their final reports reviewed: No Studies - Discharge Plan Condition: Stable Disposition: HOME Patient Education Materials: Influenza (ED), Upper Respiratory Infection (ED) Referrals: Conchis Edwards MD [Primary Care Provider] - - Billing Disposition and Condition Condition: STABLE Disposition: Home
== END 2018-04-02 17:34 | disposition home or self-care (01) ==
LOC: UCEAST 15:17
DX: J02.9 Acute pharyngitis, unspecified (principal); R09.81 Nasal congestion; R63.4 Abnormal weight loss; J45.909 Unspecified asthma, uncomplicated; K21.9 Gastro-esophageal reflux disease without esophagitis; R05 Cough; M79.10 Myalgia, unspecified site; M25.50 Pain in unspecified joint; C73 Malignant neoplasm of thyroid gland; Z88.0 Allergy status to penicillin; Z98.890 Other specified postprocedural states
CPT/HCPCS: 99212; G0463

== ENCOUNTER 2018-12-25 09:14 | Emergency (ER) | payer OTHER ==
--- OUTSIDE RECORDS SUMMARY | 2018-12-25 10:16 | XMS REPORT ---
:1980 Author Organization [facility] Address [address] [place] [address] Care Team Providers Name Role Phone Magy Tai Unavailable Unavailable PROBLEMS Type Condition ICD9-CM Code [id number] Code Onset Condition SNOMED Code Dates Status Problem Body mass index Z68.27 Active 345844795 (BMI) 27.0-27.9, adult Problem Excessive and N92.0 Active 283849904 frequent menstruation with regular cycle Problem Polycystic E28.2 Active 28424110 ovarian syndrome ALLERGIES No Information ENCOUNTERS Encounter Location Date Diagnosis [facility] Oct, OBG[place], [place] [id number] [facility] Oct, [place], [place] [id number] [facility] Oct, [place] [id number] [facility] Sep, [place] [id number] [facility] Sep, [place] [id number] [facility] Sep, [place] [id number] [facility] Sep, Vaginitis, vulvitis and OBGYN [facility], vulvovaginitis in diseases [place] [id number] classified elsewhere N77.1 ; Pelvic and perineal pain R10.2 and Excessive and frequent menstruation with regular cycle N92.0 [facility] Jul, [place] [id number] [facility] Jul, [place] [id number] [facility] May, [place] [id number] [facility] May, [place] [id number] [facility] Apr, [place] [id number] [facility] 103 Apr, Encounter for [facility], gynecological examination [place] [id number] (general) (routine) without abnormal findings Z01.419 ; Polycystic ovarian syndrome E28.2 and Excessive and frequent menstruation with regular cycle N92.0 [facility] Apr, [place] [id number] [facility] Apr, Acute vaginitis N76.0 [place] [id number] [facility] Dec, [place]BG[place], [place] [id number] [facility] May, [place], [place] [id number] [facility] May, [place] [id number] [facility] May, Candidiasis of vulva and OBGYN [facility], vagina B37.3 [place] [id number] [facility] May, Other specified OBGYN [facility], noninflammatory disorders [place] 513206802 of vagina N89.8 and Encounter for screening for infections with a predominantly sexual mode of transmission Z11.3 [facility] May, [place] [address] [facility] Apr, [place] [id number] [facility] Apr, Acute vaginitis N76.0 [place] [id number] [facility] 103 Oct, [place] [id number] [facility] Sep, [place] [address] [facility] Sep, [place] [id number] [facility] Sep, [facility] [place] E28.2 [place] [id number] [facility] Sep, [facility], syndrome E28.2 ; [place] [id number] Unspecified ovarian cysts N83.20 and Body mass index (BMI) 27.0-27.9, adult Z68.[address] Aug, Encounter for OBGYN [address] [place] [address], gynecological examination [place] [id number] (general) (routine) with abnormal findings Z01.411 and Polycystic ovarian syndrome E28.[address] May, Polycystic ovarian OBGYN [address] [place] [address], syndrome E28.2 ; Pelvic [place] 540[address]0021 and perineal pain R10.2 and Body mass index (BMI) 27.0-27.9, adult Z68.[address] Jan, Polycystic ovarian OBGYN [address] [place] [address], syndrome E28.2 ; Body mass [place] 853044665 index (BMI) 30.0-30.9, adult Z68.30 and Pelvic and perineal pain R10.[address] Dec, [address]BGYN [address] [place] [id number] [facility] [address] [place] [address] Dec, OBN [address] [id number] [facility] [address] Oct, Polycystic ovarian OBGYN [facility], syndrome E28.2 [place] [id number] [facility] [address] [place] [address] Aug, Polycystic ovarian OBGYN [address] [place] [address], syndrome E28.2 ; Body mass [place] 276313350 index (BMI) 40.0-44.9, adult Z68.41 and Unspecified ovarian cysts N83.20 [facility] Aug, Polycystic ovarian OBGYN [facility], syndrome E28.2 and [place] [id number] Irregular menstruation, unspecified N92.6 [facility] Aug, Polycystic ovarian OBGYN [facility], syndrome E28.2 [place] [id number] [facility] Aug, OBG[place], [place] [id number] [facility] Aug, [place] [id number] [facility] Aug, [facility] [address], gynecological examination [place] [id number] (general) (routine) with abnormal findings Z01.411 ; Encounter for screening for malignant neoplasm of cervix Z12.4 ; Polycystic ovarian syndrome E28.2 and Body mass index (BMI) 40.0-44.9, adult Z68.41 IMMUNIZATIONS No Known Immunizations SOCIAL HISTORY Never Assessed REASON FOR REFERRAL FUNCTIONAL STATUS PLAN OF CARE VITAL SIGNS MEDICATIONS Unknown Medications PROCEDURES No Known procedures RESULTS No Results REASON FOR VISIT Test results Insurance Providers [facility] Health Member Patient Patient Patient Patient Patient Subscriber Subscriber Subscriber Group Insurance Plan Plan Plan Plan ID Relationship Address Phone Name Date of ID Name Date of No Type Insurance Insurance Insurance Coverage to Subscriber Address Phone Name Dates Billy [phone] Billy Robles [id number] Healthcare [id number] 42 [facility] [address] [phone] Jose Maria Robles [id number] Care [place] [address] Care [facility] [phone] [facility] MEDICAL (GENERAL) HISTORY Type Description Date Medical History Hypertension Medical History PCOS Medical History Thyroid CA - 2011 Medical History Hypothyroidism Medical History Asthma Medical History Ovarian cyst Surgical History 2003, 2008, Surgical History Thyroidectomy 2010 Surgical History 2012 Surgical History Sinus Surgery 2015 Surgical History D/C- Miscarriage 2009 Surgical History gastric sleeve 11/04/2015 Hospitalization History see above
--- OUTSIDE RECORDS SUMMARY | 2018-12-25 10:16 | XMS REPORT ---
:1980 Author Name sound, ultra Care Team Providers Name Role Phone sound, ultra Unavailable Unavailable PROBLEMS Type Condition ICD9-CM Code [id number] Code Onset Condition SNOMED Code Dates Status Problem Body mass index Z68.27 Active 566225977 (BMI) 27.0-27.9, adult Problem Excessive and N92.0 Active 017718836 frequent menstruation with regular cycle Problem Polycystic E28.2 Active 29934541 ovarian syndrome ALLERGIES No Information ENCOUNTERS Encounter Location Date Diagnosis [facility] Oct, [place], [place] [id number] [facility] Oct, Pelvic and perineal pain OBGYN [facility], R10.2 and Excessive and [place] [address] frequent menstruation with regular cycle N92.0 [facility] Oct, Pelvic and perineal pain OBGYN [facility], R10.2 ; Excessive and [place] 8[address] frequent menstruation with regular cycle N92.0 and Polycystic ovarian syndrome E28.2 [facility] [address] Oct, [place]BG[place], [place] [id number] [facility] Oct, [place] [address] [facility] Oct, [place] [id number] [facility] 103 Sep, OBG[place] [address] [facility] Sep, [place], [place] [id number] [facility] Sep, [place] [id number] [facility] Sep, Vaginitis, vulvitis and OBGYN [facility], vulvovaginitis in diseases [place] [id number] classified elsewhere N77.1 ; Pelvic and perineal pain R10.2 and Excessive and frequent menstruation with regular cycle N92.0 [facility] Jul, [place] [id number] [facility] Jul, [place] [id number] [facility] May, [place] [id number] [facility] May, [place] [address] [facility] Apr, [place] [id number] [facility] 103 Apr, [facility] gy[facility]ological examination [place] [id number] (general) (routine) without abnormal findings Z01.419 ; Polycystic ovarian syndrome E28.2 and Excessive and frequent menstruation with regular cycle N92.0 [facility] Apr, [place] [id number] [facility] Apr, Acute vaginitis N76.0 [place] [id number] [facility] Dec, [place] [address] [facility] 103 May, [place]BG[place] [id number] [facility] May, [place] [id number] [facility] 103 May, Candidiasis of vulva and OBGYN [facility], vagina B37.3 [place] [id number] [facility] May, Other specified OBGYN [facility], noninflammatory disorders [place] 025113429 of vagina N89.8 and Encounter for screening for infections with a predominantly sexual mode of transmission Z11.3 [facility] May, [place]BG[place] [id number] [facility] Apr, [place] [id number] [facility] Apr, Acute vaginitis N76.0 OBG[place] [id number] [facility] Oct, [place] [id number] [facility] 103 Sep, [place] [address] [facility] Sep, [place]BG[place] [id number] [facility] Sep, Polycystic ovarian OBGYN [facility], syndrome E28.2 [place] [id number] [facility] Sep, Polycystic ovarian OBGYN [facility], syndrome E28.2 ; [place] [id number] Unspecified ovarian cysts N83.20 and Body mass index (BMI) 27.0-27.9, adult Z68.[address] 07 Aug, [address] [place], gynecological examination [place] [id number] (general) (routine) with abnormal findings Z01.411 and Polycystic ovarian syndrome E28.2 [facility] [address] [place] [address] May, Polycystic ovarian OBGYN Road [address] [place] [address], syndrome E28.2 ; Pelvic [place] [id number] and perineal pain R10.2 and Body mass index (BMI) 27.0-27.9, adult Z68.[address] [facility] Jan, Polycystic ovarian OBGYN [address] [place] [address], syndrome E28.2 ; Body mass [place] 039250916 index (BMI) 30.0-30.9, adult Z68.30 and Pelvic and perineal pain R10.[address] [facility] Dec, OBGYN Road [address] [id number] [facility] [address] [place] [address] Dec, O[address] [id number] [facility] Oct, Polycystic ovarian OBGYN [facility], syndrome E28.2 [place] [id number] [facility] [address] [place] [address] Aug, Polycystic ovarian OBGYN [address] [place] [address], syndrome E28.2 ; Body mass [place] 450570200 index (BMI) 40.0-44.9, adult Z68.41 and Unspecified ovarian cysts N83.20 [facility] Aug, Polycystic ovarian OBGYN [facility], syndrome E28.2 and [place] [id number] Irregular menstruation, unspecified N92.6 [facility] Aug, Polycystic ovarian OBGYN [facility], syndrome E28.2 [place] [id number] [facility] Aug, [place]BG[place] [id number] [facility] Aug, OBG[place] [id number] [facility] Aug, Encounter for OBGYN [address] [place], gynecological examination [place] [id number] (general) (routine) with abnormal findings Z01.411 ; Encounter for screening for malignant neoplasm of cervix Z12.4 ; Polycystic ovarian syndrome E28.2 and Body mass index (BMI) 40.0-44.9, adult Z68.41 IMMUNIZATIONS No Known Immunizations SOCIAL HISTORY Never Assessed REASON FOR REFERRAL FUNCTIONAL STATUS PLAN OF CARE VITAL SIGNS MEDICATIONS Unknown Medications PROCEDURES Procedure Date Ordered Result Body Site TRANSVAGINAL US, NON-OB Nov 20, 2018 RESULTS Name Result Date Reference Range Ultrasound : Pelvis REASON FOR VISIT US Insurance Providers [facility] Health Member Patient Patient Patient Patient Patient Subscriber Subscriber Subscriber Group Insurance Plan Plan Plan Plan ID Relationship Address Phone Name Date of ID Name Date of No Type Insurance Insurance Insurance Coverage to Subscriber Address Phone Name Dates Billy [address] [phone] Billy Robles [id number] [facility] [address] 42 Healthcare [facility] [address] [place] [phone] Jose Maria Robles [id number] [address] [address] [facility] MEDICAL (GENERAL) HISTORY Type Description Date [...]
--- OUTSIDE RECORDS SUMMARY | 2018-12-25 10:16 | XMS REPORT ---
:1980 Author Organization [facility] Address [address] [place] [address] Care Team Providers Name Role Phone Magy Tai Unavailable Unavailable PROBLEMS Type Condition ICD9-CM Code [id number] Code Onset Condition SNOMED Code Dates Status Problem Body mass index Z68.27 Active 416248173 (BMI) 27.0-27.9, adult Problem Excessive and N92.0 Active 972698161 frequent menstruation with regular cycle Problem Polycystic E28.2 Active 36670826 ovarian syndrome ALLERGIES No Information ENCOUNTERS Encounter Location Date Diagnosis [facility] Oct, OBG[place], [place] [id number] [facility] Oct, [place], [place] [id number] [facility] 103 Oct, OBG[place] [id number] [facility] Sep, [place]BG[place] [id number] [facility] 103 Sep, OBGYN [place] [id number] [facility] Sep, [place] [address] [facility] Sep, Vaginitis, vulvitis and OBGYN [facility], vulvovaginitis in diseases [place] 517[address]686 classified elsewhere N77.1 ; Pelvic and perineal pain R10.2 and Excessive and frequent menstruation with regular cycle N92.0 [facility] Jul, [place] [id number] [facility] Jul, [place] [address] [facility] May, [place] [id number] [facility] 103 May, [place] [id number] [facility] 103 Apr, [place] [id number] [facility] Apr, Encounter for [facility], gynecological examination [place] [id number] (general) (routine) without abnormal findings Z01.419 ; Polycystic ovarian syndrome E28.2 and Excessive and frequent menstruation with regular cycle N92.0 [facility] 103 Apr, [place] [id number] [facility] 103 Apr, Acute vaginitis N76.0 [place] [id number] [facility] 103 Dec, [place]BG[place], [place] [id number] [facility] 103 May, OBGYN [place] [id number] [facility] May, OBG[place] [id number] [facility] 103 May, Candidiasis of vulva and OBGYN [facility], vagina B37.3 [place] [id number] [facility] May, Other specified OBGYN [facility], noninflammatory disorders [place] 004[address]9967 of vagina N89.8 and Encounter for screening for infections with a predominantly sexual mode of transmission Z11.3 [facility] 103 May, [place] [address] [facility] Apr, [place] [address] [facility] 103 Apr, Acute vaginitis N76.0 [place] [id number] [facility] Oct, [place] [address] [facility] Sep, [place] [id number] [facility] Sep, [place] [id number] [facility] Sep, [facility] E28.2 [place] [id number] [facility] Sep, [facility], syndrome E28.2 ; [place] [address] Unspecified ovarian cysts N83.20 and Body mass index (BMI) 27.0-27.9, adult Z68.[address] Aug, Encounter for OBGYN Road [address] [place] [address], gynecological examination [place] [id number] (general) (routine) with abnormal findings Z01.411 and Polycystic ovarian syndrome E28.[address] May, Polycystic ovarian OBGYN [address] [place] [address], syndrome E28.2 ; Pelvic [place] 64[address]7044 and perineal pain R10.2 and Body mass index (BMI) 27.0-27.9, adult Z68.[address] Jan, Polycystic ovarian OBGYN [address] [place] [address], syndrome E28.2 ; Body mass [place] 200216998 index (BMI) 30.0-30.9, adult Z68.30 and Pelvic and perineal pain R10.[address] Dec, [address] [id number] [address] Dec, [address] [id number] [facility] Oct, Polycystic ovarian OBGYN [facility], syndrome E28.2 [place] [id number] [facility] [address] [place] [address] Aug, Polycystic ovarian OBGYN Road [address], syndrome E28.2 ; Body mass [place] 385099284 index (BMI) 40.0-44.9, adult Z68.41 and Unspecified ovarian cysts N83.20 [facility] 103 Aug, Polycystic ovarian OBGYN [facility], syndrome E28.2 and [place] [id number] Irregular menstruation, unspecified N92.6 [facility] 103 Aug, Polycystic ovarian OBGYN [facility], syndrome E28.2 [place] [id number] [facility] Aug, [place] [id number] [facility] Aug, [place] [address] [address] Aug, Encounter for [address], gynecological examination [place] [id number] (general) (routine) with abnormal findings Z01.411 ; Encounter for screening for malignant neoplasm of cervix Z12.4 ; Polycystic ovarian syndrome E28.2 and Body mass index (BMI) 40.0-44.9, adult Z68.41 IMMUNIZATIONS No Known Immunizations SOCIAL HISTORY Never Assessed REASON FOR REFERRAL FUNCTIONAL STATUS PLAN OF CARE VITAL SIGNS MEDICATIONS Medication Instructions Dosage Frequency Start End Date Duration Status Date MetroGel-Vagina intravaginally 1 appful Sep, 5 day(s) Active l 0.75% once a day (at 2019 bedtime) PROCEDURES No Known procedures RESULTS No Results REASON FOR VISIT Rx Insurance Providers [facility] Health Member Patient Patient Patient Patient Patient Subscriber Subscriber Subscriber Group Insurance Plan Plan Plan Plan ID Relationship Address Phone Name Date of ID Name Date of No Type Insurance Insurance Insurance Coverage to Subscriber Address Phone Name Dates Jose Maria [phone] Quinnesec caridad Robles [id number] Care [place] [address] Care [facility] [address] [facility] [phone] Cervantes caridad Robles [id number] Healthcare [address] 42 Healthcare [facility] [address] MEDICAL (GENERAL) HISTORY Type Description Date Medical History Hypertension Medical History PCOS Medical History Thyroid CA - 2011 Medical History Hypothyroidism Medical History Asthma Medical History Ovarian cyst Surgical History 2003, 2007, Surgical History Thyroidectomy 2010 Surgical History 2012 Surgical History Sinus Surgery 2015 Surgical History D/C- Miscarriage 2009 Surgical History gastric sleeve 11/04/2015 Hospitalization History see above
--- OUTSIDE RECORDS SUMMARY | 2018-12-25 10:16 | XMS REPORT ---
:1980 Author Organization [facility] Address [address] [place] [address] Care Team Providers Name Role Phone Magy Tai Unavailable Unavailable PROBLEMS Type Condition ICD9-CM Code [id number] Code Onset Condition SNOMED Code Dates Status Problem Body mass index Z68.27 Active 545685036 (BMI) 27.0-27.9, adult Problem Excessive and N92.0 Active 424173360 frequent menstruation with regular cycle Problem Polycystic E28.2 Active 33065992 ovarian syndrome ALLERGIES Substance Reaction Event Type Date Status penicillin hives Drug Allergy Oct, Active ENCOUNTERS Encounter Location Date [facility] Oct, OBGYN [place], [place] [id number] [facility] Oct, Pelvic and perineal pain OBGYN [facility], R10.2 and Excessive and [place] [address]33[address] frequent menstruation with regular cycle N92.0 [facility] Oct, Pelvic and perineal pain OBGYN [facility], R10.2 ; Excessive and [place] 8636[address] frequent menstruation with regular cycle N92.0 and Polycystic ovarian syndrome E28.2 [place] [facility] Oct, OBG[place], [place] [id number] [facility] Oct, [place] [id number] [facility] Oct, [place] [address] [place] [facility] 103 Sep, [place] [id number] [place] [facility] Sep, [place] [id number] [place] [facility] Sep, [place] [id number] [place] [facility] 103 Sep, Vaginitis, vulvitis and OBGYN [facility], vulvovaginitis in diseases [place] [id number] classified elsewhere N77.1 ; Pelvic and perineal pain R10.2 and Excessive and frequent menstruation with regular cycle N92.0 [place] [facility] Jul, OBGYN [place] [id number] [place] [facility] Jul, [place] [id number] [place] [facility] May, [place] [id number] [place] [facility] May, [place] [id number] [place] [facility] Apr, [place] [id number] [place] [facility] 103 Apr, [facility] gynecological examination [place] [id number] (general) (routine) without abnormal findings Z01.419 ; Polycystic ovarian syndrome E28.2 and Excessive and frequent menstruation with regular cycle N92.0 [place] [facility] Apr, [place] [id number] [place] [facility] 103 Apr, Acute vaginitis N76.0 [place] [id number] [place] [facility] 103 Dec, [place] [id number] [place] [facility] 103 May, [place] [id number] [place] [facility] May, [place] [id number] [place] [facility] 103 May, Candidiasis of vulva and OBGYN [facility], vagina B37.3 [place] [id number] [place] [facility] May, Other specified OBGYN [facility], noninflammatory disorders [place] 39[address]8325 of vagina N89.8 and Encounter for screening for infections with a predominantly sexual mode of transmission Z11.3 [place] [facility] May, [place] [id number] [place] [facility] Apr, [place] [id number] [place] [facility] 103 Apr, Acute vaginitis N76.0 [place] [id number] [place] [facility] Oct, [place] [id number] [place] [facility] 103 Sep, [place] [id number] [place] [facility] 103 Sep, [place] [id number] [place] [facility] 103 Sep, Polycystic ovarian OBGYN [facility], syndrome E28.2 [place] [id number] [place] [facility] 103 Sep, Polycystic ovarian OBGYN [facility], syndrome E28.2 ; [place] [id number] Unspecified ovarian cysts N83.20 and Body mass index (BMI) 27.0-27.9, adult Z68.[address] [place] [address] 07 Aug, [address] [place] [address], gynecological examination [place] [id number] (general) (routine) with abnormal findings Z01.411 and Polycystic ovarian syndrome E28.[address] [facility] May, Polycystic ovarian [address]YN [address] [place] [address], syndrome E28.2 ; Pelvic [place] [id number] and perineal pain R10.2 and Body mass index (BMI) 27.0-27.9, adult Z68.[address] 16 Feb, [address] [place] [address], syndrome E28.2 ; Body mass [place] 915235678 index (BMI) 30.0-30.9, adult Z68.30 and Pelvic and perineal pain R10.[address] Dec, OBGYN [address], [place] [id number] [address] Dec, OBGYN [address] [place] [id number] [place] [facility] 103 Oct, Polycystic ovarian OBGYN [facility], syndrome E28.2 [place] [id number] [address] Aug, Polycystic ovarian OBGYN [address], syndrome E28.2 ; Body mass [place] 675800350 index (BMI) 40.0-44.9, adult Z68.41 and Unspecified ovarian cysts N83.20 [place] [facility] 103 Aug, Polycystic ovarian OBGYN [facility], syndrome E28.2 and [place] [id number] Irregular menstruation, unspecified N92.6 [place] [facility] 103 Aug, Polycystic ovarian OBGYN [facility], syndrome E28.2 [place] [id number] [place] [facility] Aug, [facility] [place] [id number] [place] [facility] Aug, OBG[place], [place] [id number] [facility] [address] [place] [address] Aug, Encounter for OBGYN [address] [place], gynecological examination [place] [id number] (general) (routine) with abnormal findings Z01.411 ; Encounter for screening for malignant neoplasm of cervix Z12.4 ; Polycystic ovarian syndrome E28.2 and Body mass index (BMI) 40.0-44.9, adult Z68.41 IMMUNIZATIONS No Known Immunizations SOCIAL HISTORY Never Assessed REASON FOR REFERRAL FUNCTIONAL STATUS PLAN OF CARE Activity Details Follow Up Schedule hysteroscopy, D&C Reason: VITAL SIGNS Height 66 in 2018-11-20 Weight 155 lbs 2018-11-20 BMI 25.01 kg/m2 2018-11-20 Blood pressure systolic 118 mm Hg 2018-11-20 Blood pressure diastolic 64 mm Hg 2018-11-20 MEDICATIONS Medication Instructions Dosage Frequency Start End Duration Status Date Date Dulera 5 inhaled 2 times a 2 puff(s) 12h 30 day(s) Active mcg-200 day mcg/inh Omeprazole 20 1 Active mg. Vitamin B12 orally once a day 1 tab(s) 24h Active 100 mcg Synthroid 137 orally once a day 1 tab(s) 24h Active mcg (0.137 mg) iron Active biotin 1000 orally once a day 1 tab(s) 24h Active mcg Vitamin D3 orally once a day 1 tab(s) 24h Active 1000 intl units Pro Air Active Inhaler MetroGel-Vagin intravaginally 1 appful Sep, day(s) Active al 0.75% once a day (at 2019 bedtime) PROCEDURES No Known procedures RESULTS No Results REASON FOR VISIT F/U, Labs?-did not get a lab slip Insurance Providers [facility] Health Member Patient Patient Patient Patient Patient Subscriber Subscriber Subscriber Group Insurance Plan Plan Plan Plan ID Relationship Address Phone Name Date of ID Name Date of No Type Insurance Insurance Insurance Coverage to Subscriber Address Phone Name Dates Jose Maria Rao [phone] Jose Maria self Margaret [id number] [place] [address] Care [facility] [address] [facility] Cervantes [phone] Cervantes self Margaret [id number] Healthcare [id number] 42 Healthcare [facility] [address] MEDICAL (GENERAL) HISTORY Type Description Date Medical [...]
--- OUTSIDE RECORDS SUMMARY | 2018-12-25 10:17 | XMS REPORT ---
:1980 Author Organization [facility] Address [address] [place] [address] Care Team Providers Name Role Phone Magy Tai Unavailable Unavailable PROBLEMS Type Condition ICD9-CM Code [id number]-[id number] Code Onset Condition SNOMED Code Dates Status Problem Body mass index Z68.27 Active 217433696 (BMI) 27.0-27.9, adult Problem Excessive and N92.0 Active 832297638 frequent menstruation with regular cycle Problem Polycystic E28.2 Active 14724902 ovarian syndrome ALLERGIES No Information ENCOUNTERS Encounter Location Date Diagnosis [place] [facility] Oct, [place], [place] [id number] [place] [facility] Oct, [place], [place] [id number] [place] [facility] 103 Oct, [place], [place] [id number] [place] [facility] 103 Oct, [place] [id number] [place] [facility] 103 Oct, [place] [id number] [place] [facility] 103 Sep, [place] [id number] [place] [facility] Sep, [place] [id number] [place] [facility] 103 Sep, [place] [id number] [place] [facility] 103 Sep, Vaginitis, vulvitis and OBGYN [facility], vulvovaginitis in diseases [place] [id number] classified elsewhere N77.1 ; Pelvic and perineal pain R10.2 and Excessive and frequent menstruation with regular cycle N92.0 [place] [facility] 103 Jul, [place] [id number] [place] [facility] 103 Jul, [place] [id number] [place] [facility] 103 May, [place] [id number] [place] [facility] 103 May, [place] [id number] [place] [facility] 103 Apr, [place] [id number] [place] [facility] Apr, [facility] examination [place] [id number] (general) (routine) without abnormal findings Z01.419 ; Polycystic ovarian syndrome E28.2 and Excessive and frequent menstruation with regular cycle N92.0 [place] [facility] 103 Apr, [place] [id number] [place] [facility] 103 Apr, Acute vaginitis N76.0 [place] [id number] [place] [facility] 103 Dec, [place] [id number] [place] [facility] 103 May, [place] [id number] [place] [facility] 103 May, [place] [id number] [place] [facility] 103 May, Candidiasis of vulva and OBGYN [facility], vagina B37.3 [place] [id number] [place] [facility] May, Other specified OBGYN [facility], noninflammatory disorders [place] 44[address] of vagina N89.8 and Encounter for screening for infections with a predominantly sexual mode of transmission Z11.3 [place] [facility] 103 May, [place] [id number] [place] [facility] 103 Apr, [place] [id number] [place] [facility] 103 Apr, Acute vaginitis N76.0 [place] [id number] [place] [facility] 103 Oct, [place] [id number] [place] [facility] 103 Sep, [place], [place] [id number] [place] [facility] Sep, [place] [id number] [place] [facility] 103 Sep, Polycystic ovarian OBGYN [facility], syndrome E28.2 [place] [id number] [place] [facility] 103 Sep, Polycystic ovarian OBGYN [facility], syndrome E28.2 ; [place] [id number] Unspecified ovarian cysts N83.20 and Body mass index (BMI) 27.0-27.9, adult Z68.[address] Aug, Encounter for OBGYN [address] [place], gynecological examination [place] [id number] (general) (routine) with abnormal findings Z01.411 and Polycystic ovarian syndrome E28.[address] May, Polycystic ovarian OBGYN [address] [place], syndrome E28.2 ; Pelvic [place] [id number] and perineal pain R10.2 and Body mass index (BMI) 27.0-27.9, adult Z68.27 [facility] 16 Feb, [address], syndrome E28.2 ; Body mass [place] 996913256 index (BMI) 30.0-30.9, adult Z68.30 and Pelvic and perineal pain R10.[address] Dec, OBGYN [address], [place] [id number] [place] [facility] Dec, O[address], [place] [id number] [place] [facility] 103 Oct, Polycystic ovarian OBGYN [facility], syndrome E28.2 [place] [id number] [facility] [address] [place] [address] Aug, Polycystic ovarian OBGYN Road [address], syndrome E28.2 ; Body mass [place] 456271850 index (BMI) 40.0-44.9, adult Z68.41 and Unspecified ovarian cysts N83.20 [place] [facility] 103 Aug, Polycystic ovarian OBGYN [facility], syndrome E28.2 and [place] [id number] Irregular menstruation, unspecified N92.6 [place] [facility] 14 Sep, 2015 Polycystic ovarian OBGYN [facility], syndrome E28.2 [place] [id number] [place] [facility] 103 Aug, [place]BG[place] [id number] [place] [facility] 103 Aug, [place] [id number] [facility] Aug, Encounter for [address], gynecological examination [place] [id number] (general) (routine) with abnormal findings Z01.411 ; Encounter for screening for malignant neoplasm of cervix Z12.4 ; Polycystic ovarian syndrome E28.2 and Body mass index (BMI) 40.0-44.9, adult Z68.41 IMMUNIZATIONS No Known Immunizations SOCIAL HISTORY Never Assessed REASON FOR REFERRAL FUNCTIONAL STATUS PLAN OF CARE VITAL SIGNS MEDICATIONS Unknown Medications PROCEDURES No Known procedures RESULTS No Results REASON FOR VISIT question Insurance Providers [facility] Health Member Patient Patient Patient Patient Patient Subscriber Subscriber Subscriber Group Insurance Plan Plan Plan Plan ID Relationship Address Phone Name Date of ID Name Date of No Type Insurance Insurance Insurance Coverage to Subscriber Address Phone Name Dates Cervantes [phone] Cervantes self Margaret [id number] [facility] [address] 42 Healthcare [facility] [address] [place] [phone] [place] self Margaret [id number] Care [place] [address] Care [facility] [address] [facility] MEDICAL (GENERAL) HISTORY Type Description Date Medical History Hypertension Medical History PCOS Medical History Thyroid CA - 2010 Medical History Hypothyroidism Medical History Asthma Medical History Ovarian cyst Surgical History 2003, 2007, Surgical History Thyroidectomy 2010 Surgical History 2012 Surgical History Sinus Surgery 2016 Surgical History D/C- Miscarriage 2009 Surgical History gastric sleeve 11/04/2015 Hospitalization History see above
--- OUTSIDE RECORDS SUMMARY | 2018-12-25 10:17 | XMS REPORT ---
:1980 Author Organization [facility] Address [address] [place] [address] Care Team Providers Name Role Phone Magy Tai Unavailable Unavailable PROBLEMS Type Condition ICD9-CM Code HSM50-GR Code Onset Condition SNOMED Code Dates Status Problem Body mass index Z68.27 Active 197557727 (BMI) 27.0-27.9, adult Problem Excessive and N92.0 Active 523523512 frequent menstruation with regular cycle Problem Polycystic E28.2 Active 86321206 ovarian syndrome ALLERGIES Substance Reaction Event Type Date Status penicillin hives Drug Allergy Sep, Active ENCOUNTERS Encounter Location Date Diagnosis [facility] Oct, [place], [place] [id number] [facility] Oct, [place], [place] [id number] [facility] 103 Sep, [place]BG[place], [place] [id number] [facility] 103 Sep, [place], [place] [id number] [facility] 103 Sep, OBGYN [place], [place] [id number] [place] [facility] 103 Sep, Vaginitis, vulvitis and OBGYN [facility], vulvovaginitis in diseases [place] [id number] classified elsewhere N77.1 ; Pelvic and perineal pain R10.2 and Excessive and frequent menstruation with regular cycle N92.0 [place] [facility] 103 Jul, [place] [id number] [place] [facility] 103 Jul, [place]BG[place], [place] [id number] [place] [facility] 103 May, [place], [place] [id number] [place] [facility] 103 May, OBGYN [place], [place] [address] [place] [facility] Apr, [place] [id number] [place] [facility] 103 Apr, [facility] gynecological examination [place] [id number] (general) (routine) without abnormal findings Z01.419 ; Polycystic ovarian syndrome E28.2 and Excessive and frequent menstruation with regular cycle N92.0 [place] [facility] 103 Apr, OBG[place] [id number] [place] [facility] 103 Apr, Acute vaginitis N76.0 [place] [id number] [place] [facility] 103 Dec, OBG[place], [place] [address] [place] [facility] 103 May, OBG[place], [place] [id number] [place] [facility] 103 May, OBG[place] [id number] [place] [facility] 103 May, Candidiasis of vulva and OBGYN [facility], vagina B37.3 [place] [id number] [place] [facility] May, Other specified OBGYN [facility], noninflammatory disorders [place] [address]26 of vagina N89.8 and Encounter for screening for infections with a predominantly sexual mode of transmission Z11.3 [place] [facility] 103 May, OBG[place], [place] [id number] [place] [facility] 103 Apr, OBG[place], [place] [id number] [place] [facility] 103 Apr, Acute vaginitis N76.0 [place]BG[place] [id number] [place] [facility] 103 Oct, [place]BG[place] [address] [place] [facility] 103 Sep, OBGYN [place] [id number] [place] [facility] 103 Sep, OBG[place] [id number] [place] [facility] 103 Sep, Polycystic ovarian OBGYN [facility], syndrome E28.2 [place] [id number] [place] [facility] 103 Sep, Polycystic ovarian OBGYN [facility], syndrome E28.2 ; [place] [id number] Unspecified ovarian cysts N83.20 and Body mass index (BMI) 27.0-27.9, adult Z68.[address] Aug, Encounter for OBGYN Road [address] [place] [address], gynecological examination [place] [id number] (general) (routine) with abnormal findings Z01.411 and Polycystic ovarian syndrome E28.[address] May, Polycystic ovarian OBGYN [address] [place], syndrome E28.2 ; Pelvic [place] [id number] and perineal pain R10.2 and Body mass index (BMI) 27.0-27.9, adult Z68.[address] 16 Feb, [address] [place], syndrome E28.2 ; Body mass [place] 867047945 index (BMI) 30.0-30.9, adult Z68.30 and Pelvic and perineal pain R10.[address] Dec, [facility] [address] [id number] [address] Dec, [address] [id number] [facility] 103 Oct, Polycystic ovarian OBGYN [facility], syndrome E28.2 [place] [id number] [facility] Aug, Polycystic ovarian OBGYN Road [address], syndrome E28.2 ; Body mass [place] 954600691 index (BMI) 40.0-44.9, adult Z68.41 and Unspecified ovarian cysts N83.20 [facility] Aug, Polycystic ovarian OBGYN [facility], syndrome E28.2 and [place] [id number] Irregular menstruation, unspecified N92.6 [facility] 103 Aug, Polycystic ovarian OBGYN [facility], syndrome E28.2 [place] [id number] [facility] Aug, [place] [id number] [facility] 103 Aug, [place] [id number] [address] Aug, Encounter for [address], gynecological examination [place] [id number] (general) (routine) with abnormal findings Z01.411 ; Encounter for screening for malignant neoplasm of cervix Z12.4 ; Polycystic ovarian syndrome E28.2 and Body mass index (BMI) 40.0-44.9, adult Z68.41 IMMUNIZATIONS No Known Immunizations SOCIAL HISTORY Never Assessed REASON FOR REFERRAL FUNCTIONAL STATUS PLAN OF CARE Activity Details Follow Up US w/fu Reason: Pending Test Chlamydia Trachomatis CT Neisseria Gonorrhoeae NG & Trichomonas vaginalis Swab Pending Test CBC Pending Test UA RFX MICRO & CULTURE II Pending Test AFFIRM VAGINITIS PANEL Pending Test THYROID STIM HORMONE Pending Test PROLACTIN Pending Test FREE T4 VITAL SIGNS Height 66 in 2018-10-30 Weight 158 lbs 2018-10-30 BMI 25.50 kg/m2 2018-10-30 Blood pressure systolic 114 mm Hg 2018-10-30 Blood pressure diastolic 60 mm Hg 2018-10-30 MEDICATIONS Medication Instructions Dosage Frequency Start End Date Duration Status Date biotin 1000 mcg orally once a 1 tab(s) 24h Active day Synthroid 137 orally once a 1 tab(s) 24h Active mcg (0.137 mg) day Dulera 5 inhaled 2 times 2 puff(s) 12h 30 day(s) Active mcg-200 mcg/inh a day Vitamin B12 100 orally once a 1 tab(s) 24h Active mcg day Pro Air Inhaler Active iron Active Omeprazole 20 1 Active mg. Vitamin D3 1000 orally once a 1 tab(s) 24h Active intl units day PROCEDURES No Known procedures RESULTS Name Result Date Reference Range UA RFX MICRO & CULTURE II 2018-10-30 URINE COLOR YELLOW YELLOW URINE CLARITY CLOUDY CLEAR URINE GLUCOSE - DIPSTICK NEGATIVE NEGATIVE URINE BILIRUBIN - DIPSTICK NEGATIVE NEGATIVE URINE KETONE NEGATIVE NEGATIVE URINE SPECIFIC GRAVITY >= 1.030 1.010-1.030 URINE BLOOD NEGATIVE NEGATIVE URINE PH 6.0 6.5-7.5 URINE PROTEIN - DIPSTICK NEGATIVE NEGATIVE URINE UROBILINOGEN - DIPSTICK 0.2 0.2-1.0 URINE NITRITE - DIPSTICK NEGATIVE NEGATIVE URINE LEUK ESTERASE NEGATIVE NEGATIVE AFFIRM VAGINITIS PANEL 2018-10-30 Trichomonas vaginalis Negative [Negative] Gardnerella vaginalis POSITIVE [Negative] Gini species Negative [Negative] REASON FOR VISIT Possible yeast infection, Right sided pelvic pain., "Feel bloated" Insurance Providers [facility] Health Member Patient Patient Patient Patient Patient Subscriber Subscriber Subscriber Group Insurance Plan Plan Plan Plan ID Relationship Address Phone Name Date of ID Name Date of No Type Insurance Insurance Insurance Coverage to Subscriber Address Phone Name Dates Cervantes [phone] Cervantes self Margaret [id number] [facility] [address] 42 Healthcare [facility] [address] Jose [phone] [place] self Margaret [id number] Care of [place] [address] Care of [facility] [address] [facility] MEDICAL (GENERAL) HISTORY Type Description Date [...]
--- OUTSIDE RECORDS SUMMARY | 2018-12-25 10:17 | XMS REPORT ---
:1980 Author Organization [facility] Address [address] [place] [address] Care Team Providers Name Role Phone Magy Tai Unavailable Unavailable PROBLEMS Type Condition ICD9-CM Code [id number] Code Onset Condition SNOMED Code Dates Status Problem Body mass index Z68.27 Active 065246870 (BMI) 27.0-27.9, adult Problem Excessive and N92.0 Active 943130873 frequent menstruation with regular cycle Problem Polycystic E28.2 Active 64316663 ovarian syndrome ALLERGIES No Information ENCOUNTERS Encounter Location Date Diagnosis [place] [facility] Oct, [place] [id number] [facility] Oct, [place] [id number] [facility] Oct, [place] [id number] [facility] [address] Oct, [place] [address] [facility] [address] Oct, [place] [id number] [facility] Sep, [place] [id number] [facility] Sep, [place] [address] [facility] Sep, [place] [id number] [facility] Sep, Vaginitis, vulvitis and OBGYN [facility], vulvovaginitis in diseases [place] [id number] classified elsewhere N77.1 ; Pelvic and perineal pain R10.2 and Excessive and frequent menstruation with regular cycle N92.0 [place] [facility] Jul, [place] [id number] [facility] Jul, [place] [id number] [facility] May, [place] [id number] [facility] [address] May, [place] [id number] [facility] Apr, [place] [id number] [facility] Apr, [facility] examination [place] [id number] (general) (routine) without abnormal findings Z01.419 ; Polycystic ovarian syndrome E28.2 and Excessive and frequent menstruation with regular cycle N92.0 [place] [facility] Apr, [place] [id number] [place] [facility] Apr, Acute vaginitis N76.0 [place] [id number] [facility] Dec, [place] [id number] [facility] May, [place] [id number] [facility] May, [place] [id number] [facility] May, Candidiasis of vulva and OBGYN [facility], vagina B37.3 [place] [id number] [facility] May, Other specified OBGYN [facility], noninflammatory disorders [place] [address] of vagina N89.8 and Encounter for screening for infections with a predominantly sexual mode of transmission Z11.3 [facility] May, [place] [id number] [facility] Apr, [place] [id number] [facility] Apr, Acute vaginitis N76.0 [place] [id number] [facility] Oct, [place] [id number] [facility] Sep, [place] [id number] [facility] Sep, [place] [id number] [facility] Sep, Polycystic ovarian OBGYN [facility], syndrome E28.2 [place] [id number] [facility] Sep, Polycystic ovarian OBGYN [facility], syndrome E28.2 ; [place] [id number] Unspecified ovarian cysts N83.20 and Body mass index (BMI) 27.0-27.9, adult Z68.[address] Aug, Encounter for OBGYN [address] [place], gynecological examination [place] [id number] (general) (routine) with abnormal findings Z01.411 and Polycystic ovarian syndrome E28.[address] May, Polycystic ovarian [address]BGYN [address] [place], syndrome E28.2 ; Pelvic [place] [id number] and perineal pain R10.2 and Body mass index (BMI) 27.0-27.9, adult Z68.[address] [facility] 16 Feb, [address], syndrome E28.2 ; Body mass [place] 066067140 index (BMI) 30.0-30.9, adult Z68.30 and Pelvic and perineal pain R10.[address] Dec, OBGYN [address], [place] [id number] [place] [facility] Dec, OBN [address], [place] [id number] [place] [facility] [address] Oct, Polycystic ovarian OBGYN [facility], syndrome E28.2 [place] [id number] [facility] [address] [place] [address] Aug, Polycystic ovarian OBGYN [address], syndrome E28.2 ; Body mass [place] 726866651 index (BMI) 40.0-44.9, adult Z68.41 and Unspecified ovarian cysts N83.20 [place] Aug, Polycystic ovarian OBGYN [facility], syndrome E28.2 [place] [id number] Irregular menstruation, unspecified N92.6 [place] 14 Sep, 2015 Polycystic ovarian OBGYN [facility], syndrome E28.2 [place] [id number] [facility] Aug, [place] [id number] [facility] Aug, [place] [id number] [facility] Aug, Encounter for [address], gynecological examination [place] [id number] (general) (routine) with abnormal findings Z01.411 ; Encounter for screening for malignant neoplasm of cervix Z12.4 ; Polycystic ovarian syndrome E28.2 and Body mass index (BMI) 40.0-44.9, adult Z68.41 IMMUNIZATIONS No Known Immunizations SOCIAL HISTORY Never Assessed REASON FOR REFERRAL FUNCTIONAL STATUS PLAN OF CARE VITAL SIGNS MEDICATIONS Unknown Medications PROCEDURES No Known procedures RESULTS No Results REASON FOR VISIT Re:RE:question Insurance Providers [facility] Health Member Patient Patient Patient Patient Patient Subscriber Subscriber Subscriber Group Insurance Plan Plan Plan Plan ID Relationship Address Phone Name Date of ID Name Date of No Type Insurance Insurance Insurance Coverage to Subscriber Address Phone Name Dates Cervantes [phone] Cervantes self Margaret [id number] [facility] [address] [address] [facility] [address] [phone] Jose Maria self Margaret [id number] [place] [address] Care [facility] [address] [facility] MEDICAL (GENERAL) HISTORY Type Description Date Medical History Hypertension Medical History PCOS Medical History Thyroid CA - 2011 Medical History Hypothyroidism Medical History Asthma Medical History Ovarian cyst Surgical History 2004, 2008, Surgical History Thyroidectomy 2010 Surgical History 2012 Surgical History Sinus Surgery 2016 Surgical History D/C- Miscarriage 2009 Surgical History gastric sleeve 11/04/2015 Hospitalization History see above
--- OUTSIDE RECORDS SUMMARY | 2018-12-25 10:17 | XMS REPORT ---
:1980 Author [facility] Address [address] [place] [address] Care Team Providers Name Role Phone Magy Tai Unavailable Unavailable PROBLEMS Type Condition ICD9-CM Code ESQ85-CF Code Onset Condition SNOMED Code Dates Status Problem Body mass index Z68.27 Active 316916314 (BMI) 27.0-27.9, adult Problem Excessive and N92.0 Active 359262194 frequent menstruation with regular cycle Problem Polycystic E28.2 Active 10718164 ovarian syndrome ALLERGIES No Information ENCOUNTERS Encounter Location Date Diagnosis [facility] [address] Oct, [place] [id number] [facility] [address] Oct, [place] [id number] [facility] [address] Sep, [place] [address] [facility] [address] Sep, [place] [address] [facility] Sep, [place] [address] [facility] Sep, Vaginitis, vulvitis and OBGYN [facility], vulvovaginitis in diseases [place] [id number] classified elsewhere N77.1 ; Pelvic and perineal pain R10.2 and Excessive and frequent menstruation with regular cycle N92.0 [facility] [address] Jul, [place] [address] [facility] Jul, [place] [address] [facility] [address] May, [place] [address] [facility] [address] May, [place] [address] [facility] Apr, [place] [address] [facility] [address] Apr, [facility] gynecological examination [place] [id number] (general) (routine) without abnormal findings Z01.419 ; Polycystic ovarian syndrome E28.2 and Excessive and frequent menstruation with regular cycle N92.0 [facility] Apr, [place] [address] [facility] Apr, Acute vaginitis N76.0 [place] [address] [facility] [address] Dec, [place] [address] [facility] May, [place] [address] [facility] May, [place] [address] [facility] [address] May, Candidiasis of vulva and OBGYN [facility], vagina B37.[address] [place] [address] [address] [facility] May, Other [facility], noninflammatory disorders [place] [address] of vagina N89.8 and Encounter for screening for infections with a predominantly sexual mode of transmission Z11.3 [facility] [address] May, [place] [address] [place] [facility] Apr, [place] [address] [facility] Apr, Acute vaginitis N76.0 [place] [address] [facility] Oct, [place] [address] [facility] Sep, [place] [address] [facility] Sep, [place] [address] [facility] [address] Sep, Polycystic ovarian OBGYN [facility], syndrome E28.[address] [facility] [address] Sep, Polycystic ovarian OBGYN [facility], syndrome E28.2 ; [place] [id number] Unspecified ovarian cysts N83.20 and Body mass index (BMI) 27.0-27.9, adult Z68.[address] Aug, Encounter for OBGYN [address] [place] [address], gynecological examination [place] [id number] (general) (routine) with abnormal findings Z01.411 and Polycystic ovarian syndrome E28.[address] May, Polycystic ovarian OBGYN [address] [place] [address], syndrome E28.2 ; Pelvic [place] 779[address]402 and perineal pain R10.2 and Body mass index (BMI) 27.0-27.9, adult Z68.[address] 16 Feb, [address] [place] [address], syndrome E28.2 ; Body mass [place] 696456458 index (BMI) 30.0-30.9, adult Z68.30 and Pelvic and perineal pain R10.2 [facility] [address] [place] [address] Dec, OBGYN Road [address] [place] [id number] [place] [facility] [address] [place] [address] Dec, OBN Road [address] [id number] [facility] [address] Oct, Polycystic ovarian OBGYN [facility], syndrome E28.2 [place] [id number] [facility] [address] [place] [address] Aug, Polycystic ovarian OBGYN [address], syndrome E28.2 ; Body mass [place] 256734666 index (BMI) 40.0-44.9, adult Z68.41 and Unspecified ovarian cysts N83.20 [facility] Aug, Polycystic ovarian OBGYN [facility], syndrome E28.2 and [place] [address] Irregular menstruation, unspecified N92.6 [facility] [address] Aug, Polycystic ovarian OBGYN [facility], syndrome E28.[address] [place] [id number] [facility] Aug, [place] [address] [facility] Aug, [place] [address] [place] [facility] [address] [place] [address] Aug, Encounter for [address], gynecological examination [place] [id number] (general) (routine) with abnormal findings Z01.411 ; Encounter for screening for malignant neoplasm of cervix Z12.4 ; Polycystic ovarian syndrome E28.2 and Body mass index (BMI) 40.0-44.9, adult Z68.41 IMMUNIZATIONS No Known Immunizations SOCIAL HISTORY Never Assessed REASON FOR REFERRAL FUNCTIONAL STATUS PLAN OF CARE VITAL SIGNS MEDICATIONS Unknown Medications PROCEDURES No Known procedures RESULTS No Results REASON FOR VISIT Auth for Insurance Providers [facility] Member Patient Patient Patient Patient Patient Subscriber Subscriber Subscriber Group Insurance Plan Plan Plan Plan ID Relationship Address Phone Name Date of ID Name Date of No Type Insurance Insurance Insurance Coverage to Subscriber Address Phone Name Dates Jose Maria Rao [phone] Jose Maria self Margaret [id number] Care [place] [address] [facility] [address] [facility] Billy A[phone] Billy Robles [id number] Healthcare [id number] [phone] Healthcare [facility] [address] MEDICAL (GENERAL) HISTORY Type Description Date Medical [...]
--- OUTSIDE RECORDS SUMMARY | 2018-12-25 10:17 | XMS REPORT ---
:1980 Author [facility] Address [address] [place] [address] Care Team Providers Name Role Phone Magy Tai Unavailable Unavailable PROBLEMS Type Condition ICD9-CM Code [id number]-JR Code Onset Condition SNOMED Code Dates Status Problem Body mass index Z68.27 Active 815115023 (BMI) 27.0-27.9, adult Problem Excessive and N92.0 Active 367115463 frequent menstruation with regular cycle Problem Polycystic E28.2 Active 36334916 ovarian syndrome ALLERGIES No Information ENCOUNTERS Encounter Location Date Diagnosis [place] [facility] Oct, [place] [id number] [place] [facility] Oct, [place] [address] [place] [facility] Sep, [place] [address] [place] [facility] Sep, [place] [address] [place] [facility] Sep, [place] [address] [place] [facility] Sep, Vaginitis, vulvitis and OBGYN [facility], vulvovaginitis in diseases [place] [id number] classified elsewhere N77.1 ; Pelvic and perineal pain R10.2 and Excessive and frequent menstruation with regular cycle N92.0 [place] [facility] Jul, [place] [id number] [facility] [facility] Jul, [place] [address] [place] [facility] May, [place] [address] [facility] 103 May, [place] [address] [facility] Apr, [place] [address] [facility] Apr, [facility] gynecological examination [place] [id number] (general) (routine) without abnormal findings Z01.419 ; Polycystic ovarian syndrome E28.2 and Excessive and frequent menstruation with regular cycle N92.0 [place] [facility] Apr, [place] [id number] [facility] Apr, Acute vaginitis N76.0 [place] [address] [place] [facility] Dec, [place] [address] [facility] [facility] May, [place] [address] [facility] [facility] May, [place] [address] [facility] [facility] May, Candidiasis of vulva and OBGYN [facility], vagina B37.3 [place] [id number] [place] [facility] May, Other [facility] noninflammatory disorders [place] [address] of vagina N89.8 and Encounter for screening for infections with a predominantly sexual mode of transmission Z11.3 [place] [facility] May, [place] [address] [place] [facility] Apr, [place] [address] [facility] [facility] Apr, Acute vaginitis N76.0 [place] [address] [facility] Oct, [place] [address] [facility] Sep, [place] [address] [facility] Sep, [place] [address] [facility] Sep, Polycystic ovarian OBGYN [facility], syndrome E28.2 [place] [id number] [facility] Sep, Polycystic ovarian OBGYN [facility], syndrome E28.2 ; [place] [address] Unspecified ovarian cysts N83.20 and Body mass index (BMI) 27.0-27.9, adult Z68.[address] Aug, Encounter for OBGYN [address] [place] [address], gynecological examination [place] [id number] (general) (routine) with abnormal findings Z01.411 and Polycystic ovarian syndrome E28.[address] May, Polycystic ovarian OBGYN [address] [place] [address], syndrome E28.2 ; Pelvic [place] 101032457 and perineal pain R10.2 and Body mass index (BMI) 27.0-27.9, adult Z68.[address] 16 Feb, [address] [place] [address], syndrome E28.2 ; Body mass [place] 839220353 index (BMI) 30.0-30.9, adult Z68.30 and Pelvic and perineal pain R10.2 [facility] [address] [place] [address] Dec, [facility] Road [address] [id number] [place] [facility] [address] [place] [address] Dec, [address] [id number] [facility] Oct, Polycystic ovarian OBGYN [facility], syndrome E28.2 [place] [id number] [facility] Aug, Polycystic ovarian OBGYN [address], syndrome E28.2 ; Body mass [place] 294902262 index (BMI) 40.0-44.9, adult Z68.41 and Unspecified ovarian cysts N83.20 [facility] Aug, Polycystic ovarian OBGYN [facility], syndrome E28.2 and [place] [address]03[address]48[address] Irregular menstruation, unspecified N92.6 [place] [facility] Aug, Polycystic ovarian OBGYN [facility], syndrome E28.2 [place] [id number] [facility] Aug, [place] [id number] [facility] Aug, [place] [address] [facility] [address] [place] [address] Aug, Encounter for [address], gynecological examination [place] [id number] (general) (routine) with abnormal findings Z01.411 ; Encounter for screening for malignant neoplasm of cervix Z12.4 ; Polycystic ovarian syndrome E28.2 and Body mass index (BMI) 40.0-44.9, adult Z68.41 IMMUNIZATIONS No Known Immunizations SOCIAL HISTORY Never Assessed REASON FOR REFERRAL FUNCTIONAL STATUS PLAN OF CARE VITAL SIGNS MEDICATIONS Unknown Medications PROCEDURES No Known procedures RESULTS No Results REASON FOR VISIT Message Insurance Providers [facility] Health Member Patient Patient Patient Patient Patient Subscriber Subscriber Subscriber Group Insurance Plan Plan Plan Plan ID Relationship Address Phone Name Date of ID Name Date of No Type Insurance Insurance Insurance Coverage to Subscriber Address Phone Name Dates Billy GAMING [phone] Cervantes self Margaret [id number] Healthcare [id number] Healthcare [facility] [address] [phone] [place] self Margaret [id number] [address] [address] [facility] MEDICAL (GENERAL) HISTORY Type Description Date [...]
[2018-12-25 10:33] VITALS: BP 132/92
--- NOTE | 2018-12-25 10:41 | UC ---
Throat Pain/Nasal Calvin HPI - HPI Summary HPI Summary: 38-year-old female with history of asthma presents with 2 days of nasal congestion, sinus pressure, postnasal drip, and sore throat. States yesterday she started developing some chest tightness and burning, wheezing, and productive cough for green sputum. States she has felt hot and cold but no known fever. Today he is feeling extremely fatigued and has noted a non- pruritic rash to her chest and arms. Patient states that she is using her albuterol inhaler about every 4 hours while awake. Denies ear pain, dysphagia, palpitations, abdominal pain, nausea, or vomiting. - History of Current Complaint Chief Complaint: UCGeneralIllness Stated Complaint: COUGH/CHEST CONGESTION/BODY ACHES Time Seen by Provider: 12/25/18 10:36 Hx Obtained From: Patient Hx Last Menstrual Period: 03/22/2018 Pain Intensity: 8 - Allergies/Home Medications Allergies/Adverse Reactions: Allergies Allergy/AdvReac Type Severity Reaction Status Date / Time Penicillins Allergy Intermediate Rash Verified 12/25/18 10:26 Home Medications: Home Medications Albuterol inh POWDER (NF) [Proair Respiclick] 2 puff INH Q4HR PRN 12/25/18 [ History Confirmed 12/25/18] Ibuprofen TAB* [Motrin TAB* 600 MG] 600 mg PO Q6H PRN 12/25/18 [History Confirmed 12/25/18] PMH/Surg Hx/FS Hx/Imm Hx Endocrine History: Hypothyroidism Respiratory History: Asthma GI/ History: Gastroesophageal Reflux Other History Of: Negative For: Anticoagulant Therapy - Surgical History Surgical History: Yes Surgery Procedure, Year, and Place: 3x c-sections. full thyroidectomy. sinus surgery. gastric sleeve 2016. D&C's - Family History Known Family History: Negative: Hypertension, Diabetes - Social History Occupation: Employed Full-time Lives: Alone Alcohol Use: Occasionally Substance Use Type: None Smoking Status (MU): Never Smoked Tobacco Have You Smoked in the Last Year: No - Immunization History Most Recent Influenza Vaccination: 2014 Most Recent Tetanus Shot: UNSURE Most Recent Pneumonia Vaccination: UNSURE Review of Systems All Other Systems Reviewed And Are Negative: Yes Constitutional: Positive: Fatigue. Negative: Fever, Chills Skin: Positive: Rash Eyes: Negative: Drainage, Eye Redness ENT: Positive: Sore Throat, Nasal Discharge, Sinus Congestion, Sinus Pain/ Tenderness. Negative: Ear Ache Respiratory: Positive: Shortness Of Breath, Cough, Other - Wheezing Cardiovascular: Negative: Palpitations Gastrointestinal: Negative: Abdominal Pain, Vomiting, Diarrhea, Nausea Genitourinary: Positive: Negative Musculoskeletal: Positive: Negative Neurological: Positive: Negative Is Patient Immunocompromised?: No Physical Exam - Summary Physical Exam Summary: GENERAL APPEARANCE: Well developed, well nourished, alert and cooperative, and appears to be in no acute distress. EYES: Conjunctiva clear. No drainage. EARS: External auditory canals and tympanic membranes clear, hearing grossly intact. NOSE: Moderate nasal congestion. Maxillary sinus tenderness with percussion. THROAT: Mild pharyngeal erythema with post-nasal drip. No tonsilar inflammation , swelling, exudate, or lesions. Uvula midline. Airway patent. NECK: Neck supple, non-tender without lymphadenopathy. CARDIAC: Normal S1 and S2. No S3, S4 or murmurs. Rhythm is regular. There is no peripheral edema, cyanosis or pallor. Extremities are warm and well perfused. Capillary refill is less than 2 seconds. Peripheral pulses intact. LUNGS: Intermittent bilateral wheezes that clear with cough. Bronchospastic, non -productive cough. ABDOMEN: Positive bowel sounds. Soft, nondistended, nontender. No guarding or rebound. No masses or hepatosplenomegally. MUSKULOSKELETAL: ROM intact to all extremities. No joint erythema or tenderness. Normal muscular development. Normal gait. SKIN: Skin normal color, texture and turgor. Fine diffuse maculopapular rash to anterior upper chest and bilateral forearms. Triage Information Reviewed: Yes Vital Signs: Initial Vital Signs Temp 98.6 F 12/25/18 10:27 Pulse 71 12/25/18 10:27 Resp 18 12/25/18 10:27 BP 132/92 12/25/18 10:27 Pulse Ox 100 12/25/18 10:27 Vital Signs Reviewed: Yes Throat Pain/Nasal Course/Dx - Course Course Of Treatment: 38-year-old female with history of asthma presents with 2 days of nasal congestion, sinus pressure, postnasal drip, and sore throat. States yesterday she started developing some chest tightness and burning, wheezing, and productive cough for green sputum. States she has felt hot and cold but no known fever. Today he is feeling extremely fatigued and has noted a non- pruritic rash to her chest and arms. Patient states that she is using her albuterol inhaler about every 4 hours while awake. Denies ear pain, dysphagia, palpitations, abdominal pain, nausea, or vomiting. Afebrile. Vital signs stable. Patient had moderate nasal congestion, maxillary sinus tenderness, mild pharyngeal erythema with postnasal drip, no tonsillar swelling or exudate, no cervical lymphadenopathy, fine diffuse maculopapular rash to anterior upper chest and bilateral forearms, intermittent bilateral wheezes that cleared with cough, and a bronchospastic nonproductive cough. Remainder of exam was unremarkable. Discussed with patient that she likely has a viral upper respiratory infection with exacerbation of her asthma. Recommending we start her on a short course of prednisone to help with the asthma exacerbation as well as symptomatic treatment for the viral URI including a prescription for Tessalon Perles 1 capsule every 8 hours as needed for cough. She is to follow- up with her primary care provider in 3 days especially if symptoms are not improving. Dyspnea guidance at warning symptoms were reviewed with the patient. Verbalizes understanding and agrees to plan of care. - Differential Dx/Diagnosis Differential Diagnosis/HQI/PQRI: Pharyngitis, Sinusitis, Tonsillitis, URI, Other - Asthma exacerbation Provider Diagnosis: Viral URI with cough, Asthma exacerbation Discharge ED - Sign-Out/Discharge Documenting (check all that apply): Patient Departure All imaging exams completed and their final reports reviewed: No Studies - Discharge Plan Condition: Stable Disposition: HOME Prescriptions: Benzonatate CAP* [Tessalon 100 MG CAP*] 100 mg PO TID PRN #21 cap PRN Reason: Cough predniSONE TAB* [Deltasone TAB*] 50 mg PO DAILY #5 tab Patient Education Materials: Upper Respiratory Infection (ED), Asthma (ED) Referrals: Conchis Edwards MD [Primary Care Provider] - 3 Days Additional Instructions: Your history and exam are consistent with a viral upper respiratory infection with asthma exacerbation. Viral infections do not respond to antibiotics and are limited to the treatment of symptoms. Viral infections typically run their course in 7-10 days. Start prednisone 50 mg daily for 5 days to help reduce airway inflammation and wheezing. Use your albuterol inhaler as directed for shortness of breath or wheezing. Use a saline rinse kit such as Neti Pot or NeilMed at least twice a day to help thin secretions and promote drainage of the sinuses. Use over the counter fluticasone (Flonase) nasal spray 2 sprays each nostril once daily. Use an over the counter decongestant such as Sudafed to help with the nasal congestion and sinus pressure. Take over the counter acetaminophen (Tylenol) according to directions as needed for pain or fever. Use salt water gargles several times a day if you have a sore throat. You may also use Chloraseptic spray or Cepacol lonzenges according to directions which contain a numbing medication and can provide some temporary relief from your sore throat. Follow up with your primary care provider in 3 days if symptoms persist. Seek immediate medical attention in the emergency room if you have fever greater than 100.5 F despite taking acetaminophen, have severe or persistent chest pain, increased difficulty breathing, you are unable to swallow, or have any worsening of symptoms. - Billing Disposition and Condition Condition: STABLE Disposition: Home
== END 2018-12-25 11:03 | disposition home or self-care (01) ==
LOC: UCCORT 09:14
DX: J06.9 Acute upper respiratory infection, unspecified (principal); R05 Cough; J45.901 Unspecified asthma with (acute) exacerbation; Z88.0 Allergy status to penicillin
CPT/HCPCS: 99212; G0463

== ENCOUNTER 2019-06-02 10:32 | Emergency (ER) | payer OTHER ==
--- OUTSIDE RECORDS SUMMARY | 2019-06-02 10:41 | XMS REPORT ---
:1980 Author Organization [facility] Address [address] [place] [address] Care Team Providers Name Role Phone Aure Brown Unavailable Unavailable PROBLEMS Type Condition ICD9-CM Code [id number] Code Onset Condition SNOMED Code Dates Status Problem Excessive and N92.0 Active 676260547 frequent menstruation with regular cycle Problem Acute vaginitis N76.0 Active 78365508 Problem Polycystic E28.2 Active 67661214 ovarian syndrome Problem Body mass index Z68.27 Active 786915074 (BMI) 27.0-27.9, adult ALLERGIES Substance Reaction Event Type Date Status penicillin hives Drug Allergy Mar, Active ENCOUNTERS Encounter Location Date Diagnosis [facility] [address], OBGYN [place], [place] [id number] [facility] [address] Mar, OBGYN [place] [id number] [facility] [address] Mar, OBGYN [place] [id number] [facility] [address] Mar, Excessive and frequent [facility] [place] [id number] menstruation with regular cycle N92.0 [facility] [address] Jan, Excessive and frequent OBGYN [facility], menstruation with regular [place] [id number] cycle N92.0 [facility] [address] Dec, [place] [id number] [facility] [address] Dec, [place]BG[place] [id number] [facility] [address] Dec, [place]BG[place] [id number] [facility] [address] Dec, [place] [id number] [facility] [address] Dec, Excessive and frequent OBGYN [facility], menstruation with regular [place] [id number] cycle N92.0 and Acute vaginitis N76.0 [facility] [address] Dec, [place]BGYN [place] [id number] [facility] [address] Dec, Acute vaginitis N76.0 [place] [id number] [facility] [address] Dec, Acute vaginitis N76.0 [place] [id number] [facility] [address] Dec, Acute vaginitis N76.0 [place] [id number] [facility] [address] Oct, OBG[place] [id number] [facility] [address] Oct, Pelvic and perineal pain OBGYN [facility], R10.2 and Excessive and [place] [id number] frequent menstruation with regular cycle N92.0 [facility] [address] Oct, Pelvic and perineal pain OBGYN [facility], R10.2 ; Excessive and [place] [id number] frequent menstruation with regular cycle N92.0 and Polycystic ovarian syndrome E28.2 [facility] [address] Oct, [place] [id number] [facility] [address] Oct, [place]BG[place] [id number] [facility] [address] Oct, [place] [id number] [facility] [address] Sep, [place] [id number] [facility] [address] Sep, [place] [id number] [facility] [address] Sep, [place] [id number] [facility] [address] Sep, Vaginitis, vulvitis and OBGYN [facility], vulvovaginitis in diseases [place] [id number] classified elsewhere N77.1 ; Pelvic and perineal pain R10.2 and Excessive and frequent menstruation with regular cycle N92.0 [facility] [address] Jul, [place] [id number] [facility] [address] Jul, [place] [id number] [facility] [address] May, [place]BG[place] [id number] [facility] 103 May, [place] [id number] [facility] [address] Apr, [place] [id number] [facility] [address] Apr, [facility] [place] [id number] (general) (routine) without abnormal findings Z01.419 ; Polycystic ovarian syndrome E28.2 and Excessive and frequent menstruation with regular cycle N92.0 [facility] [address] Apr, [place]BG[place] [id number] [facility] [address] Apr, Acute vaginitis N76.0 [place], [place] [id number] [facility] [address] Dec, [place] [id number] [facility] [address] May, [place] [id number] [facility] May, [place] [id number] [facility] [address] May, Candidiasis of vulva and OBGYN [facility], vagina B37.3 [place] [id number] [facility] [address] May, Other specified OBGYN [facility], noninflammatory disorders [place] [id number] of vagina N89.8 and Encounter for screening for infections with a predominantly sexual mode of transmission Z11.3 [facility] [address] May, [place]BG[place], [place] [id number] [facility] [address] Apr, [place]BG[place] [id number] [facility] [address] Apr, Acute vaginitis N76.0 [place] [id number] [facility] [address] Oct, [place] [id number] [facility] [address] Sep, [place] [id number] [facility] [address] Sep, [place]BG[place], [place] [id number] [facility] 103 Sep, Polycystic ovarian OBGYN [facility], syndrome E28.2 [place] [id number] [facility] [address] Sep, Polycystic ovarian OBGYN [facility], syndrome E28.2 ; [place] [id number] Unspecified ovarian cysts N83.20 and Body mass index (BMI) 27.0-27.9, adult Z68.[address] Aug, Encounter for [address], gynecological examination [place] [id number] (general) (routine) with abnormal findings Z01.411 and Polycystic [facility] syndrome E28.[facility] [address] May, Polycystic ovarian [address], syndrome E28.2 ; Pelvic [place] [id number] and perineal pain R10.2 and Body mass index (BMI) 27.0-27.9, adult Z68.[address] Jan, Polycystic ovarian O[facility] [address], syndrome E28.2 ; Body mass [place] [id number] index (BMI) 30.0-30.9, adult Z68.30 and Pelvic and perineal pain R10.[address] Dec, [address], [place] [id number] [facility] Dec, [address] [id number] [facility] [address] Oct, Polycystic ovarian OBGYN [facility], syndrome E28.2 [place] [id number] [facility] Aug, Polycystic ovarian [address], syndrome E28.2 ; Body mass [place] [id number] index (BMI) 40.0-44.9, adult Z68.41 and Unspecified ovarian cysts N83.20 [facility] [address] Aug, Polycystic ovarian OBGYN [facility], syndrome E28.2 and [place] [id number] Irregular menstruation, unspecified N92.6 [facility] [address] Aug, Polycystic ovarian OBGYN [facility], syndrome E28.2 [place] [id number] [facility] [address] Aug, [place]BG[place], [place] [id number] [facility] [address] Aug, [place]BG[place] [id number] [place] [id number] [facility] Aug, Encounter for OBGYN [address] [place], gynecological examination [place] [id number] (general) (routine) with abnormal findings Z01.411 ; Encounter for screening for malignant neoplasm of cervix Z12.4 ; Polycystic ovarian syndrome E28.2 and Body mass index (BMI) 40.0-44.9, adult Z68.41 IMMUNIZATIONS No Known Immunizations SOCIAL HISTORY Never Assessed REASON FOR REFERRAL FUNCTIONAL STATUS PLAN OF CARE VITAL SIGNS MEDICATIONS Medication Instructions Dosage Frequency Start End Duration Status Date Date Ondansetron orally every 8 1 tab(s) Dec, Active Hydrochloride 4 hours prn 2019 mg MetroGel-Vaginal intravaginally 1 appful Dec, 10 days Active 0.75% once a day (at 2019 bedtime) Pro Air Inhaler Active Synthroid 137 mcg orally once a day 1 tab(s) 24h Active (0.137 mg) iron Active Vitamin B12 100 orally once a day 1 tab(s) 24h Active mcg misoprostol 200 orally once with 1 tab(s) Dec, Active mcg dinner night 2019 before, once just before bed, once in morning with sip of water biotin 1000 mcg orally once a day 1 tab(s) 24h Active Vitamin D3 1000 orally once a day 1 tab(s) 24h Active intl units Dulera 5 mcg-200 inhaled 2 times a 2 puff(s) 12h 30 day(s) Active mcg/inh day Diflucan 150 mg orally once, 2nd 1 tab(s) Dec, 2 days Active tab 72 hrs later 2019 if still symptomatic Omeprazole 20 mg. 1 Active PROCEDURES No Known procedures RESULTS No Results REASON FOR VISIT post op Insurance Providers [facility] Patient Patient Patient Patient Patient Subscriber Subscriber Subscriber Group Insurance Plan Plan Plan Plan ID Relationship Address Phone Name Date of ID Name Date of No Type Insurance Insurance Insurance Coverage to Subscriber Address Phone Name Dates Cervantes [phone] Cervantes self Margaret [id number] [facility] [id number] [facility] [address] [place] [phone] Jose Maria Robles [id number] [place] [address] [facility] [address] [facility] MEDICAL (GENERAL) [...]
--- OUTSIDE RECORDS SUMMARY | 2019-06-02 10:41 | XMS REPORT ---
:1980 Author Name Melania Huitrondith Address [address] [place] [address] Care Team Providers Name Role Phone Abigail Huitron Unavailable Unavailable PROBLEMS Type Condition ICD9-CM Code [id number] Code Onset Condition SNOMED Code Dates Status Problem Excessive and N92.0 Active 543840906 frequent menstruation with regular cycle Problem Acute vaginitis N76.0 Active 30268047 Problem Polycystic E28.2 Active 70148776 ovarian syndrome Problem Body mass index Z68.27 Active 388684006 (BMI) 27.0-27.9, adult ALLERGIES No Information ENCOUNTERS Encounter Location Date Diagnosis [facility] [address], [place] [id number] [facility] [address], [place]BG[place], [place] [id number] [facility] [address] Mar, [place] [id number] [facility] [address] Mar, Excessive and frequent Medical Center [place], [place] [id number] menstruation with regular cycle N92.0 [facility] Jan, Excessive and frequent OBGYN [facility], menstruation with regular [place] [address] cycle N92.0 [facility] [address] Dec, OBG[place], [place] [id number] [facility] [facility] [address] Dec, [place] [id number] [facility] Dec, [place]BG[place] [id number] [facility] Dec, [place], [place] [id number] [facility] Dec, Excessive and frequent OBGYN [facility], menstruation with regular [place] [address] cycle N92.0 and Acute vaginitis N76.0 [facility] [address] Dec, [place]BG[place], [place] [id number] [facility] Dec, Acute vaginitis N76.0 [place] [id number] [facility] Dec, Acute vaginitis N76.0 [place]BG[place] [id number] [facility] Dec, Acute vaginitis N76.0 [place]BG[place], [place] [id number] [facility] Oct, [place] [id number] [facility] Oct, Pelvic and perineal pain OBGYN [facility], R10.2 and Excessive [place] [address] frequent menstruation with regular cycle N92.0 [facility] Oct, Pelvic and perineal pain OBGYN [facility], R10.2 ; Excessive and [place] [address] frequent menstruation with regular cycle N92.0 and Polycystic ovarian syndrome E28.2 [facility] Oct, [place]BG[place] [id number] [facility] Oct, [place], [place] [id number] [facility] Oct, OBG[place] [id number] [facility] Sep, [place]BG[place] [id number] [facility] Sep, [place]BG[place], [place] [id number] [facility] Sep, [place] [id number] [facility] Sep, Vaginitis, vulvitis and OBGYN [facility], vulvovaginitis in diseases [place] [id number] classified elsewhere N77.1 ; Pelvic and perineal pain R10.2 and Excessive and frequent menstruation with regular cycle N92.0 [facility] Jul, OBG[place], [place] [id number] [facility] Jul, [place] [id number] [facility] May, [place] [id number] [facility] May, [place] [id number] [facility] Apr, [place] [id number] [facility] Apr, [facility] examination [place] [id number] (general) (routine) without abnormal findings Z01.419 ; Polycystic ovarian syndrome E28.2 and Excessive and frequent menstruation with regular cycle N92.0 [facility] Apr, [place], [place] [id number] [facility] Apr, Acute vaginitis N76.0 [place] [id number] [facility] Dec, [place] [id number] [facility] May, [place], [place] [id number] [facility] May, [place] [id number] [facility] May, Candidiasis of vulva and OBGYN [facility], vagina B37.3 [place] [id number] [facility] [facility] May, Other specified OBGYN [facility], noninflammatory disorders [place] [id number] of vagina N89.8 and Encounter for screening for infections with a predominantly sexual mode of transmission Z11.3 [facility] [facility] May, [place] [address] [facility] Apr, [place] [id number] [facility] Apr, Acute vaginitis N76.0 [place] [id number] [facility] Oct, [place] [id number] [facility] Sep, [place], [place] [id number] [facility] Sep, [place] [id number] [facility] Sep, Polycystic ovarian OBGYN [facility], syndrome E28.2 [place] [id number] [facility] Sep, Polycystic ovarian OBGYN [facility], syndrome E28.2 ; [place] [id number] Unspecified ovarian cysts N83.20 and Body mass index (BMI) 27.0-27.9, adult Z68.27 [facility] 07 Aug, [address] [place] [address], gynecological examination [place] [id number] (general) (routine) with abnormal findings Z01.411 and Polycystic ovarian syndrome E28.2 [facility] 22 May, [address] [place] [address], syndrome E28.2 ; Pelvic [place] [id number] and perineal pain R10.2 and Body mass index (BMI) 27.0-27.9, adult Z68.[address] 16 Feb, [address] [place] [address], syndrome E28.2 ; Body mass [place] 719146063 index (BMI) 30.0-30.9, adult Z68.30 and Pelvic and perineal pain R10.[address] Dec, [address]BN [address] [id number] [facility] 28 Dec, [address] [place] [id number] [facility] [facility] [address] Oct, Polycystic ovarian OBGYN [facility], syndrome E28.2 [place] [id number] [address] Aug, Polycystic ovarian OBGYN [address], syndrome E28.2 ; Body mass [place] 127784033 index (BMI) 40.0-44.9, adult Z68.41 and Unspecified ovarian cysts N83.20 [facility] Aug, Polycystic ovarian OBGYN [facility], syndrome E28.2 and [place] [id number] Irregular menstruation, unspecified N92.6 [facility] Aug, Polycystic ovarian OBGYN [facility], syndrome E28.2 [place] [id number] [facility] Aug, OBGYN [facility], [place] [id number] [facility] Aug, [place] [address] [place] [address] [facility] Aug, Encounter for OBGYN [address] [place], gynecological examination [place] [id number] (general) (routine) with abnormal findings Z01.411 ; Encounter for screening for malignant neoplasm of cervix Z12.4 ; Polycystic ovarian syndrome E28.2 and Body mass index (BMI) 40.0-44.9, adult Z68.41 IMMUNIZATIONS No Known Immunizations SOCIAL HISTORY Never Assessed REASON FOR REFERRAL FUNCTIONAL STATUS PLAN OF CARE VITAL SIGNS MEDICATIONS Medication Instructions Dosage Frequency Start End Duration Status Date Date Diflucan 150 mg orally once, 2nd 1 tab(s) 18 Oct, 2 days Active tab 72 hrs later 2019 if still symptomatic Omeprazole 20 mg. 1 Active Pro Air Inhaler Active Synthroid 137 mcg orally once a day 1 tab(s) 24h Active (0.137 mg) iron Active Vitamin B12 100 orally once a day 1 tab(s) 24h Active mcg Ondansetron orally every 8 1 tab(s) Dec, Active Hydrochloride 4 hours prn 2019 mg Dulera 5 mcg-200 inhaled 2 times a 2 puff(s) 12h 30 day(s) Active mcg/inh day biotin 1000 mcg orally once a day 1 tab(s) 24h Active Vitamin D3 1000 orally once a day 1 tab(s) 24h Active intl units MetroGel-Vaginal intravaginally 1 appful 30 Dec, 10 days Active 0.75% once a day (at 2019 bedtime) misoprostol 200 orally once with 1 tab(s) Dec, Active mcg dinner night 2019 before, once just before bed, once in morning with sip of water PROCEDURES No Known procedures RESULTS No Results REASON FOR VISIT BV Insurance Providers [facility] Member Patient Patient Patient Patient Patient Subscriber Subscriber Subscriber Group Insurance Plan Plan Plan Plan ID Relationship Address Phone Name Date of ID Name Date of No Type Insurance Insurance Insurance Coverage to Subscriber Address Phone Name Dates Jose Maria Rao [phone] Jose Maria self Margaret [id number] [place] [address] [facility] [address] hotsandi Cervantes [phone] Cervantes self Margaret [id number] [id number] [place] [id number] MEDICAL (GENERAL) HISTORY Type Description Date Medical [...]
--- OUTSIDE RECORDS SUMMARY | 2019-06-02 10:41 | XMS REPORT ---
:1980 Author Name Melania Huitrondith Address [address] [place] [address] Care Team Providers Name Role Phone Abigail Huitron Unavailable Unavailable PROBLEMS Type Condition ICD9-CM Code [id number] Code Onset Condition SNOMED Code Dates Status Problem Excessive and N92.0 Active 540390523 frequent menstruation with regular cycle Problem Acute vaginitis N76.0 Active 35791476 Problem Polycystic E28.2 Active 24401952 ovarian syndrome Problem Body mass index Z68.27 Active 389248401 (BMI) 27.0-27.9, adult ALLERGIES Substance Reaction Event Type Date Status penicillin hives Drug Allergy Dec, Active ENCOUNTERS Encounter Location Date Diagnosis [facility], [place] [id number] [facility] [address] Mar, [place] [id number] [facility] Mar, [place]BG[place] [id number] Pending [facility] [address] Mar, Excessive and frequent Medical Center [place], [place] [id number] menstruation with regular cycle N92.0 [facility] Jan, Excessive and frequent OBGYN [facility], menstruation with regular [place] [address] cycle N92.0 [facility] Dec, OBG[place] [id number] [facility] Dec, [place] [id number] [facility] [address] Dec, [place] [id number] [facility] Dec, [place]BG[place] [id number] [facility] Dec, Excessive and frequent OBGYN [facility], menstruation with regular [place] [id number] cycle N92.0 and Acute vaginitis N76.0 [facility] Dec, [place]BG[place] [id number] [facility] Dec, Acute vaginitis N76.0 [place]BG[place] [id number] [facility] Dec, Acute vaginitis N76.0 [place]BGYN [place] [address] [facility] Dec, Acute vaginitis N76.0 [place] [id number] [facility] Oct, [place]BG[place] [address] [facility] Oct, Pelvic and perineal pain OBGYN [facility], R10.2 and Excessive and [place] [address] frequent menstruation with regular cycle N92.0 [facility] Oct, Pelvic and perineal pain OBGYN [facility], R10.2 ; Excessive and [place] [id number] frequent menstruation with regular cycle N92.0 and Polycystic ovarian syndrome E28.2 [facility] Oct, OBGYN [place], [place] [id number] [facility] Oct, OBGYN [place] [id number] [facility] Oct, OBGYN [place] [id number] [facility] [address] Sep, OBGYN [place] [id number] [facility] Sep, OBG[place] [id number] [facility] Sep, [place]BG[place] [id number] [facility] Sep, Vaginitis, vulvitis and OBGYN [facility], vulvovaginitis in diseases [place] [id number] classified elsewhere N77.1 ; Pelvic and perineal pain R10.2 and Excessive and frequent menstruation with regular cycle N92.0 [facility] Jul, OBGYN [place] [id number] [facility] Jul, OBG[place] [address] [facility] May, OBGYN [place] [id number] [facility] [address] May, OBGYN [place] [address] [facility] Apr, OBG[place] [id number] [facility] Apr, Encounter for OBGYN [facility], gynecological examination [place] [id number] (general) (routine) without abnormal findings Z01.419 ; Polycystic ovarian syndrome E28.2 and Excessive and frequent menstruation with regular cycle N92.0 [facility] Apr, OBG[place] [id number] [facility] Apr, Acute vaginitis N76.0 [facility]BGYN [place] [id number] [facility] Dec, OBG[place] [id number] [facility] [address] May, OBGYN [place] [address] [facility] [address] May, [place]BG[place] [id number] [facility] [address] May, Candidiasis of vulva and OBGYN [facility], vagina B37.3 [place] [id number] [facility] May, Other specified OBGYN [facility], noninflammatory disorders [place] [address] of vagina N89.8 and Encounter for screening for infections with a predominantly sexual mode of transmission Z11.3 [facility] May, OBG[place] [address] [facility] Apr, OBGYN [place] [id number] [facility] Apr, Acute vaginitis N76.0 [facility]BGYN [place] [id number] [facility] Oct, OBGYN [place] [id number] [facility] Sep, OBGYN [place] [id number] [facility] Sep, OBGYN [place] [address] [facility] Sep, Polycystic ovarian OBGYN [facility], syndrome E28.2 [place] [id number] [facility] Sep, Polycystic ovarian OBGYN [facility], syndrome E28.2 ; [place] [id number] Unspecified ovarian cysts N83.20 and Body mass index (BMI) 27.0-27.9, adult Z68.[address] [facility] [facility] [address], gynecological examination [place] [id number] (general) (routine) with abnormal findings Z01.411 and Polycystic ovarian syndrome E28.[address] [place] [facility] May, Polycystic ovarian [address]YN [address], syndrome E28.2 ; Pelvic [place] [id number] and perineal pain R10.2 and Body mass index (BMI) 27.0-27.9, adult Z68.[address] 16 Feb, [address], syndrome E28.2 ; Body mass [place] 8420[address] index (BMI) 30.0-30.9, adult Z68.30 and Pelvic and perineal pain R10.[address] Dec, [facility] [address], [place] [id number] [facility] Dec, [address], [place] [id number] [facility] Oct, Polycystic ovarian OBGYN [facility], syndrome E28.2 [place] [id number] [facility] [facility] [address] [place] [address] Aug, Polycystic ovarian [address], syndrome E28.2 ; Body mass [place] 473075967 index (BMI) 40.0-44.9, adult Z68.41 and Unspecified ovarian cysts N83.20 [facility] Aug, Polycystic ovarian OBGYN [facility], syndrome E28.2 and [place] [id number] Irregular menstruation, unspecified N92.6 [facility] Aug, Polycystic ovarian OBGYN [facility], syndrome E28.2 [place] [id number] [facility] Aug, [facility] [place] [address] [facility] Aug, OBGYN [place] [id number] [facility] Aug, Encounter for OBGYN [address] [place], gynecological examination [place] [id number] (general) (routine) with abnormal findings Z01.411 ; Encounter for screening for malignant neoplasm of cervix Z12.4 ; Polycystic ovarian syndrome E28.2 and Body mass index (BMI) 40.0-44.9, adult Z68.41 IMMUNIZATIONS No Known Immunizations SOCIAL HISTORY Never Assessed REASON FOR REFERRAL FUNCTIONAL STATUS PLAN OF CARE Activity Details Follow Up as scheduled Reason: VITAL SIGNS Height 66 in 2019-01-28 Weight 163 lbs 2019-01-28 BMI 26.31 kg/m2 2019-01-28 Blood pressure systolic 110 mm Hg 2019-01-28 Blood pressure diastolic 72 mm Hg 2019-01-28 MEDICATIONS Medication Instructions Dosage Frequency Start End Duration Status Date Date Vitamin B12 100 orally once a day 1 tab(s) 24h Active mcg biotin 1000 mcg orally once a day 1 tab(s) 24h Active MetroGel-Vaginal intravaginally 1 appful Dec, 5 day(s) Active 0.75% once a day (at 2019 bedtime) Pro Air Inhaler Active iron Active Dulera 5 mcg-200 inhaled 2 times a 2 puff(s) 12h 30 day(s) Active mcg/inh day Ondansetron orally every 8 1 tab(s) Dec, Active Hydrochloride 4 hours prn 2019 mg misoprostol 200 orally once with 1 tab(s) Dec, Active mcg dinner night 2019 before, once just before bed, once in morning with sip of water Omeprazole 20 mg. 1 Active Diflucan 150 mg orally once, 2nd 1 tab(s) 18 Oct, 2 days Active tab 72 hrs later 2019 if still symptomatic Synthroid 137 mcg orally once a day 1 tab(s) 24h Active (0.137 mg) Vitamin D3 1000 orally once a day 1 tab(s) 24h Active intl units PROCEDURES No Known procedures RESULTS Name Result Date Reference Range AFFIRM VAGINITIS PANEL 2019-01-28 Trichomonas vaginalis Negative [Negative] Gardnerella vaginalis POSITIVE [Negative] Gini species Negative [Negative] REASON FOR VISIT hyst d&c in OR preop Insurance Providers [facility] Health Member Patient Patient Patient Patient Patient Subscriber Subscriber Subscriber Group Insurance Plan Plan Plan Plan ID Relationship Address Phone Name Date of ID Name Date of No Type Insurance Insurance Insurance Coverage to Subscriber Address Phone Name Dates Billy [phone] Billy Robles [id number] Healthcare [id number] Healthcare [facility] [address] [phone] Jose [place]les [id number] [place] [address] Care [facility] [address] [facility] MEDICAL (GENERAL) HISTORY Type Description Date Medical [...]
--- OUTSIDE RECORDS SUMMARY | 2019-06-02 10:41 | XMS REPORT ---
:1980 Author Organization [facility] Address [address] [place] [address] Care Team Providers Name Role Phone Magy Tai Unavailable Unavailable PROBLEMS Type Condition ICD9-CM Code [id number] Code Onset Condition SNOMED Code Dates Status Problem Excessive and N92.0 Active 130546143 frequent menstruation with regular cycle Problem Acute vaginitis N76.0 Active 67334623 Problem Polycystic E28.2 Active 32868170 ovarian syndrome Problem Body mass index Z68.27 Active 035837856 (BMI) 27.0-27.9, adult ALLERGIES No Information ENCOUNTERS Encounter Location Date Diagnosis [facility] [address], [place], [place] [id number] [facility] [address] Mar, OBGYN [place], [place] [id number] [facility] [address] Mar, OBGYN [place], [place] [id number] [facility] [address] Mar, Excessive and frequent [facility] [place] [id number] menstruation with regular cycle N92.0 [facility] [address] Jan, Excessive and frequent OBGYN [facility], menstruation with regular [place] [address]40[address] cycle N92.0 [facility] [address] Dec, OBGYN [place] [id number] [facility] [address] Dec, OBGYN [place], [place] [id number] [facility] [address] Dec, OBGYN [place] [id number] [facility] [address] Dec, OBGYN [place] [id number] [facility] 103 Dec, Excessive and frequent OBGYN [facility], menstruation with regular [place] 7870[address] cycle N92.0 and Acute vaginitis N76.0 [facility] [address] Dec, OBGYN [place] [id number] [facility] 103 Dec, Acute vaginitis N76.0 [place]BG[place], [place] [id number] [facility] 103 Dec, Acute vaginitis N76.0 [place]BG[place] [id number] [facility] 103 Dec, Acute vaginitis N76.0 OBGYN [place] [id number] [facility] [address] Oct, OBGYN [place] [id number] [facility] [address] Oct, Pelvic and perineal pain OBGYN [facility], R10.2 and Excessive and [place] [address] frequent menstruation with regular cycle N92.0 [facility] [address] Oct, Pelvic and perineal pain OBGYN [facility], R10.2 ; Excessive and [place] [address] frequent menstruation with regular cycle N92.0 and Polycystic ovarian syndrome E28.2 [facility] [address] Oct, OBG[place], [place] [id number] [facility] [address] Oct, OBGYN [place], [place] [id number] [facility] [address] Oct, OBG[place] [id number] [facility] 103 Sep, OBG[place] [id number] [facility] [address] Sep, OBG[place] [id number] [facility] [address] Sep, OBGYN [place], [place] [id number] [facility] 103 Sep, Vaginitis, vulvitis and OBGYN [facility], vulvovaginitis in diseases [place] [id number] classified elsewhere N77.1 ; Pelvic and perineal pain R10.2 and Excessive and frequent menstruation with regular cycle N92.0 [facility] [address] Jul, OBGYN [place] [id number] [facility] Jul, [place] [id number] [facility] 103 May, [place] [id number] [facility] May, [place] [id number] [facility] Apr, [place] [id number] [facility] 103 Apr, [facility] examination [place] [id number] (general) (routine) without abnormal findings Z01.419 ; Polycystic ovarian syndrome E28.2 and Excessive and frequent menstruation with regular cycle N92.0 [facility] [address] Apr, OBGYN [place] [id number] [facility] 103 Apr, Acute vaginitis N76.0 [place] [id number] [facility] Dec, OBGYN [place] [id number] [facility] [address] May, OBGYN [place], [place] [id number] [facility] [address] May, [place] [id number] [facility] 103 May, Candidiasis of vulva and OBGYN [facility], vagina B37.3 [place] [id number] [facility] May, Other specified OBGYN [facility], noninflammatory disorders [place] 147397859 of vagina N89.8 and Encounter for screening for infections with a predominantly sexual mode of transmission Z11.3 [facility] May, OBGYN [place] [id number] [facility] Apr, OBGYN [place] [id number] [facility] 103 Apr, Acute vaginitis N76.0 OBGYN [place], [place] [id number] [facility] 103 Oct, OBGYN [place] [id number] [facility] 103 Sep, OBGYN [place] [id number] [facility] Sep, OBGYN [place], [place] [id number] [facility] 103 Sep, Polycystic ovarian OBGYN [facility], syndrome E28.2 [place] [id number] [facility] 103 Sep, Polycystic ovarian OBGYN [facility], syndrome E28.2 ; [place] [id number] Unspecified ovarian cysts N83.20 and Body mass index (BMI) 27.0-27.9, adult Z68.27 [facility] 07 Aug, [address] [place] [address], gynecological examination [place] [id number] (general) (routine) with abnormal findings Z01.411 and Polycystic ovarian syndrome E28.[address] [facility] 22 May, [address] [place] [address], syndrome E28.2 ; Pelvic [place] 638137084 and perineal pain R10.2 and Body mass index (BMI) 27.0-27.9, adult Z68.[address] 16 Feb, [address] [place] [address], syndrome E28.2 ; Body mass [place] 524926209 index (BMI) 30.0-30.9, adult Z68.30 and Pelvic and perineal pain R10.[address] Dec, [address] [id number] [facility] 28 Dec, [address] [place] [id number] [facility] 103 Oct, Polycystic ovarian OBGYN [facility], syndrome E28.2 [place] [id number] [address] Aug, Polycystic ovarian [address]BGYN [address], syndrome E28.2 ; Body mass [place] 105968245 index (BMI) 40.0-44.9, adult Z68.41 and Unspecified ovarian cysts N83.20 [facility] 103 Aug, Polycystic ovarian OBGYN [facility], syndrome E28.2 and [place] [id number] Irregular menstruation, unspecified N92.6 [facility] [address] Aug, Polycystic ovarian OBGYN [facility], syndrome E28.2 [place] [id number] [facility] [address] Aug, OBGYN [facility], [place] [id number] [facility] Aug, OBGYN [place] [id number] [address] Aug, Encounter for OBGYN [address] [place], gynecological examination [place] [id number] (general) (routine) with abnormal findings Z01.411 ; Encounter for screening for malignant neoplasm of cervix Z12.4 ; Polycystic ovarian syndrome E28.2 and Body mass index (BMI) 40.0-44.9, adult Z68.41 IMMUNIZATIONS No Known Immunizations SOCIAL HISTORY Never Assessed REASON FOR REFERRAL FUNCTIONAL STATUS PLAN OF CARE VITAL SIGNS MEDICATIONS Unknown Medications PROCEDURES No Known procedures RESULTS Name Result Date Reference Range AFFIRM VAGINITIS PANEL 2019-01-10 Trichomonas vaginalis Negative [Negative] Gardnerella vaginalis Negative [Negative] Gini species POSITIVE [Negative] REASON FOR VISIT Insurance Providers [facility] Health Member Patient Patient Patient Patient Patient Subscriber Subscriber Subscriber Group Insurance Plan Plan Plan Plan ID Relationship Address Phone Name Date of ID Name Date of No Type Insurance Insurance Insurance Coverage to Subscriber Address Phone Name Dates Jose Maria Rao [phone] Jose Maria self Margaret [id number] [place] [id number] [facility] [address] [facility] [phone] Cervantes self Margaret [id number] [place] [id number] Healthcare [facility] [address] MEDICAL (GENERAL) HISTORY Type Description Date Medical [...]
--- OUTSIDE RECORDS SUMMARY | 2019-06-02 10:41 | XMS REPORT ---
:1980 Author Organization [facility] Address [address] [place] [address] Care Team Providers Name Role Phone Magy Tai Unavailable Unavailable PROBLEMS Type Condition ICD9-CM Code [id number] Code Onset Condition SNOMED Code Dates Status Problem Excessive and N92.0 Active 359358823 frequent menstruation with regular cycle Problem Acute vaginitis N76.0 Active 22000929 Problem Polycystic E28.2 Active 56630981 ovarian syndrome Problem Body mass index Z68.27 Active 345997999 (BMI) 27.0-27.9, adult ALLERGIES No Information ENCOUNTERS Encounter Location Date Diagnosis [facility] [address] Mar, OBGYN [place], [place] [id number] [facility] [address] Mar, OBGYN [place] [id number] [facility] Mar, OBGYN [place], [place] [id number] [facility] [address] Mar, Excessive and frequent [facility] [place] [address] menstruation with regular cycle N92.0 [facility] [address] Jan, Excessive and frequent OBGYN [facility], menstruation with regular [place] [address] cycle N92.0 [facility] [address] Dec, OBGYN [place] [id number] [facility] [address] Dec, OBGYN [place], [place] [id number] [facility] [address] Dec, OBG[place], [place] [id number] [facility] [address] Dec, OBGYN [place], [place] [id number] [facility] 103 Dec, Excessive and frequent OBGYN [facility], menstruation with regular [place] [address]38[address]896 cycle N92.0 and Acute vaginitis N76.0 [facility] [address] Dec, OBGYN [place], [place] [id number] [facility] 103 Dec, Acute vaginitis N76.0 OBGYN [place], [place] [id number] [facility] 103 Dec, Acute vaginitis N76.0 [place]BGYN [place], [place] [id number] [facility] 103 Dec, Acute vaginitis N76.0 OBGYN [place] [id number] [facility] [address] Oct, OBGYN [place] [id number] [facility] 103 Oct, Pelvic and perineal pain OBGYN [facility], R10.2 and Excessive and [place] 7617[address] frequent menstruation with regular cycle N92.0 [facility] 103 Oct, Pelvic and perineal pain OBGYN [facility], R10.2 ; Excessive and [place] [address] frequent menstruation with regular cycle N92.0 and Polycystic ovarian syndrome E28.2 [facility] [address] Oct, OBGYN [place], [place] [id number] [facility] [address] Oct, OBGYN [place], [place] [id number] [facility] 103 Oct, OBGYN [place], [place] [id number] [facility] [address] Sep, OBGYN [place], [place] [id number] [facility] Sep, OBGYN [place], [place] [id number] [facility] Sep, OBGYN [place], [place] [id number] [facility] 103 Sep, Vaginitis, vulvitis and OBGYN [facility], vulvovaginitis in diseases [place] [id number] classified elsewhere N77.1 ; Pelvic and perineal pain R10.2 and Excessive and frequent menstruation with regular cycle N92.0 [facility] [address] Jul, OBGYN [place] [id number] [facility] Jul, [place] [id number] [facility] 103 May, [place] [id number] [facility] 103 May, [place] [id number] [facility] Apr, [place] [id number] [facility] 103 Apr, [facility] gynecological examination [place] [id number] (general) (routine) without abnormal findings Z01.419 ; Polycystic ovarian syndrome E28.2 and Excessive and frequent menstruation with regular cycle N92.0 [facility] Apr, OBGYN [place] [id number] [facility] 103 Apr, Acute vaginitis N76.0 [place] [id number] [facility] 103 Dec, OBGYN [place], [place] [id number] [facility] 103 May, OBGYN [place] [id number] [facility] May, OBGYN [place], [place] [id number] [facility] 103 May, Candidiasis of vulva and OBGYN [facility], vagina B37.3 [place] [id number] [facility] May, Other specified OBGYN [facility], noninflammatory disorders [place] 3[address]327 of vagina N89.8 and Encounter for screening for infections with a predominantly sexual mode of transmission Z11.3 [facility] May, OBGYN [place] [id number] [facility] Apr, OBGYN [place], [place] [id number] [facility] 103 Apr, Acute vaginitis N76.0 OBGYN [place], [place] [id number] [facility] 103 Oct, OBGYN [place], [place] [id number] [facility] Sep, OBGYN [place], [place] [id number] [facility] Sep, OBGYN [place], [place] [id number] [facility] 103 Sep, Polycystic ovarian OBGYN [facility], syndrome E28.2 [place] [id number] [facility] 103 Sep, Polycystic ovarian OBGYN [facility], syndrome E28.2 ; [place] [id number] Unspecified ovarian cysts N83.20 and Body mass index (BMI) 27.0-27.9, adult Z68.27 [facility] 07 Aug, [address] [place] [address], gynecological examination [place] [id number] (general) (routine) with abnormal findings Z01.411 and Polycystic ovarian syndrome E28.2 [facility] 22 May, [address] [place] [address], syndrome E28.2 ; Pelvic [place] [address] and perineal pain R10.2 and Body mass index (BMI) 27.0-27.9, adult Z68.[address] 16 Feb, [address] [place] [address], syndrome E28.2 ; Body mass [place] 106729028 index (BMI) 30.0-30.9, adult Z68.30 and Pelvic and perineal pain R10.[address] Dec, [address]BN [address] [id number] [facility] 28 Dec, [address] [place] [id number] [facility] 103 Oct, Polycystic ovarian OBGYN [facility], syndrome E28.2 [place] [id number] [address] Aug, Polycystic ovarian [address]BGYN [address], syndrome E28.2 ; Body mass [place] 312779932 index (BMI) 40.0-44.9, adult Z68.41 and Unspecified ovarian cysts N83.20 [facility] 103 Aug, Polycystic ovarian OBGYN [facility], syndrome E28.2 and [place] [address] Irregular menstruation, unspecified N92.6 [facility] 103 Aug, Polycystic ovarian OBGYN [facility], syndrome E28.2 [place] [id number] [facility] 103 Aug, OBGYN [facility], [place] [id number] [facility] Aug, OBGYN [place], [place] [id number] [address] Aug, Encounter for OBGYN [address] [place], gynecological examination [place] [address] (general) (routine) with abnormal findings Z01.411 ; Encounter for screening for malignant neoplasm of cervix Z12.4 ; Polycystic ovarian syndrome E28.2 and Body mass index (BMI) 40.0-44.9, adult Z68.41 IMMUNIZATIONS No Known Immunizations SOCIAL HISTORY Never Assessed REASON FOR REFERRAL FUNCTIONAL STATUS PLAN OF CARE VITAL SIGNS MEDICATIONS Unknown Medications PROCEDURES No Known procedures RESULTS No Results REASON FOR VISIT FYI Insurance Providers [facility] Patient Patient Patient Patient Patient Subscriber Subscriber Subscriber Group Insurance Plan Plan Plan Plan ID Relationship Address Phone Name Date of ID Name Date of No Type Insurance Insurance Insurance Coverage to Subscriber Address Phone Name Dates Jose Maria Rao [phone] Jose Maria self Margaret [id number] [place] [address] Care [facility] [address] [facility] Cervantes [phone] Cervantes self Margaret [id number] Healthcare [id number] Healthcare [facility] [address] MEDICAL (GENERAL) HISTORY Type Description Date Medical [...]
--- OUTSIDE RECORDS SUMMARY | 2019-06-02 10:41 | XMS REPORT ---
:1980 Author Name Melania Huitrondith Address [address] [place] [address] Care Team Providers Name Role Phone Abigail Huitron Unavailable Unavailable PROBLEMS Type Condition ICD9-CM Code ALQ37-SD Code Onset Condition SNOMED Code Dates Status Problem Excessive and N92.0 Active 279193688 frequent menstruation with regular cycle Problem Acute vaginitis N76.0 Active 81120804 Problem Polycystic E28.2 Active 68620943 ovarian syndrome Problem Body mass index Z68.27 Active 741054301 (BMI) 27.0-27.9, adult ALLERGIES Substance Reaction Event Type Date Status penicillin hives Drug Allergy Dec, Active ENCOUNTERS Encounter Location Date Diagnosis [facility] [address], [place]BG[place], [place] [id number] [facility] [address] Mar, [place] [id number] [facility] Mar, [place]BG[place] [id number] [facility] [address] Mar, Excessive and frequent Medical [facility] [place], [place] [id number] menstruation with regular cycle N92.0 [place] [facility] Jan, Excessive and frequent OBGYN [facility], menstruation with regular [place] [address] cycle N92.0 [place] [facility] [address] Dec, [place] [id number] [place] [facility] Dec, [place] [id number] [facility] Dec, [place] [id number] [facility] Dec, [place] [id number] [facility] Dec, Excessive and frequent OBGYN [facility], menstruation with regular [place] [address] cycle N92.0 and Acute vaginitis N76.0 [place] [facility] Dec, [place] [id number] [facility] Dec, Acute vaginitis N76.0 [place] [address] [place] [facility] Dec, Acute vaginitis N76.0 [place] [address] [place] [facility] Dec, Acute vaginitis N76.0 [place] [address] [facility] Oct, [place] [id number] [facility] Oct, Pelvic and perineal pain OBGYN [facility], R10.2 and Excessive and [place] [address] frequent menstruation with regular cycle N92.0 [place] [facility] Oct, Pelvic and perineal pain OBGYN [facility], R10.2 ; Excessive and [place] [address] frequent menstruation with regular cycle N92.0 and Polycystic ovarian syndrome E28.2 [facility] Oct, [place] [id number] [place] [facility] [address] Oct, [place] [id number] [facility] Oct, [place] [id number] [facility] [address] Sep, [place] [id number] [facility] Sep, [place] [id number] [facility] Sep, [place] [id number] [facility] Sep, Vaginitis, vulvitis and OBGYN [facility], vulvovaginitis in diseases [place] [id number] classified elsewhere N77.1 ; Pelvic and perineal pain R10.2 and Excessive and frequent menstruation with regular cycle N92.0 [place] [facility] Jul, [place] [id number] [facility] Jul, [place] [id number] [facility] May, [place] [id number] [place] [facility] May, [place] [id number] [facility] Apr, [place] [id number] [facility] Apr, Encounter for OBGYN [facility], gynecological examination [place] [id number] (general) (routine) without abnormal findings Z01.419 ; Polycystic ovarian syndrome E28.2 and Excessive and frequent menstruation with regular cycle N92.0 [facility] Apr, [place] [id number] [place] [facility] Apr, Acute vaginitis N76.0 [place] [id number] [place] [facility] Dec, [place] [id number] [facility] May, [place] [id number] [place] [facility] May, [place] [id number] [place] [facility] May, Candidiasis of vulva and OBGYN [facility], vagina B37.3 [place] [id number] [place] [facility] May, Other specified OBGYN [facility], noninflammatory disorders [place] [address] of vagina N89.8 and Encounter for screening for infections with a predominantly sexual mode of transmission Z11.3 [place] [facility] May, [place] [id number] [facility] Apr, [place] [id number] [facility] Apr, Acute vaginitis N76.0 [place] [address] [facility] Oct, [place] [id number] [facility] Sep, [place] [id number] [facility] Sep, [place] [id number] [place] [facility] Sep, Polycystic ovarian OBGYN [facility], syndrome E28.2 [place] [id number] [place] [facility] Sep, Polycystic ovarian OBGYN [facility], syndrome E28.2 ; [place] [id number] Unspecified ovarian cysts N83.20 and Body mass index (BMI) 27.0-27.9, adult Z68.27 [facility] 07 Aug, [facility] [address], gynecological examination [place] [id number] (general) (routine) with abnormal findings Z01.411 and Polycystic ovarian syndrome E28.[address] [place] [address] May, Polycystic ovarian OBGYN [address], syndrome E28.2 ; Pelvic [place] [id number] and perineal pain R10.2 and Body mass index (BMI) 27.0-27.9, adult Z68.[address] 16 Feb, [address], syndrome E28.2 ; Body mass [place] 67[address] index (BMI) 30.0-30.9, adult Z68.30 and Pelvic and perineal pain R10.[address] Dec, [facility] [address] [place] [id number] [facility] Dec, [address], [place] [id number] [place] [facility] Oct, Polycystic ovarian OBGYN [facility], syndrome E28.2 [place] [id number] [place] [facility] [address] [place] [address] Aug, Polycystic ovarian OBN [address], syndrome E28.2 ; Body mass [place] 3[address] index (BMI) 40.0-44.9, adult Z68.41 and Unspecified ovarian cysts N83.20 [place] [facility] Aug, Polycystic ovarian OBGYN [facility], syndrome E28.2 and [place] [id number] Irregular menstruation, unspecified N92.6 [place] [facility] Aug, Polycystic ovarian OBGYN [facility], syndrome E28.2 [place] [id number] [place] [facility] Aug, OBGYN [facility], [place] [id number] [facility] Aug, [place] [address] [facility] Aug, Encounter for OBGYN [address] [place], gynecological examination [place] [id number] (general) (routine) with abnormal findings Z01.411 ; Encounter for screening for malignant neoplasm of cervix Z12.4 ; Polycystic ovarian syndrome E28.2 and Body mass index (BMI) 40.0-44.9, adult Z68.41 IMMUNIZATIONS No Known Immunizations SOCIAL HISTORY Never Assessed REASON FOR REFERRAL FUNCTIONAL STATUS PLAN OF CARE Activity Details Follow Up annual after 04-23-19 Reason: VITAL SIGNS Weight 158 lbs 2019-01-10 Blood pressure systolic 100 mm Hg 2019-01-10 Blood pressure diastolic 60 mm Hg 2019-01-10 MEDICATIONS Medication Instructions Dosage Frequency Start End Date Duration Status Date biotin 1000 mcg orally once a 1 tab(s) 24h Active day Pro Air Inhaler Active Diflucan 150 mg orally once, 2nd 1 tab(s) Dec, 2 days Active tab 72 hrs later 2018 if still symptomatic Vitamin B12 100 orally once a 1 tab(s) 24h Active mcg day Omeprazole 20 1 Active mg. Vitamin D3 1000 orally once a 1 tab(s) 24h Active intl units day Synthroid 137 orally once a 1 tab(s) 24h Active mcg (0.137 mg) day iron Active Dulera 5 inhaled 2 times 2 puff(s) 12h 30 day(s) Active mcg-200 mcg/inh a day PROCEDURES No Known procedures RESULTS No Results REASON FOR VISIT itching and discharge Insurance Providers [facility] Health Member Patient Patient Patient Patient Patient Subscriber Subscriber Subscriber Group Insurance Plan Plan Plan Plan ID Relationship Address Phone Name Date of ID Name Date of No Type Insurance Insurance Insurance Coverage to Subscriber Address Phone Name Dates Jose Maria [phone] Jose Maria self Margaret [id number] [facility] [address] [facility] [address] hot Cervantes [phone] Cervantes self Margaret [id number] Healthcare [id number] [address] [place] [address] MEDICAL (GENERAL) HISTORY Type Description Date Medical [...]
--- OUTSIDE RECORDS SUMMARY | 2019-06-02 10:41 | XMS REPORT ---
:1980 Author Organization [facility] Address [address] [place] [address] Care Team Providers Name Role Phone Aure Brown Unavailable Unavailable PROBLEMS Type Condition ICD9-CM Code [id number] Code Onset Condition SNOMED Code Dates Status Problem Excessive and N92.0 Active 635589335 frequent menstruation with regular cycle Problem Acute vaginitis N76.0 Active 67196540 Problem Polycystic E28.2 Active 11144286 ovarian syndrome Problem Body mass index Z68.27 Active 616415501 (BMI) 27.0-27.9, adult ALLERGIES No Information ENCOUNTERS Encounter Location Date Diagnosis [facility] [address] Mar, OBG[place], [place] [id number] [facility] [address] Mar, [place], [place] [id number] [facility] [address] Mar, [place], [place] [id number] [facility] [address] Mar, Excessive and frequent [facility] [place], [place] [address] menstruation with regular cycle N92.0 [facility] Jan, Excessive and frequent OBGYN [facility], menstruation with regular [place] [address] cycle N92.0 [facility] Dec, [place] [id number] [facility] Dec, [place] [address] [place] [facility] Dec, [place], [place] [id number] [place] [facility] Dec, [place] [id number] [place] [facility] [address] Dec, Excessive and frequent OBGYN [facility], menstruation with regular [place] [address] cycle N92.0 and Acute vaginitis N76.0 [place] [facility] Dec, [place] [id number] [place] [facility] Dec, Acute vaginitis N76.0 [place] [id number] [place] [facility] Dec, Acute vaginitis N76.0 [place] [address] [place] [facility] Dec, Acute vaginitis N76.0 [place] [address] [place] [facility] Oct, [place] [address] [place] [facility] Oct, Pelvic and perineal pain OBGYN [facility], R10.2 and Excessive and [place] [address] frequent menstruation with regular cycle N92.0 [facility] Oct, Pelvic and perineal pain OBGYN [facility], R10.2 ; Excessive and [place] [address] frequent menstruation with regular cycle N92.0 and Polycystic ovarian syndrome E28.2 [facility] Oct, [place] [address] [place] [facility] Oct, [place], [place] [id number] [place] [facility] Oct, [place] [address] [place] [facility] Sep, [place] [id number] [place] [facility] Sep, [place] [id number] [place] [facility] Sep, [place], [place] [address] [place] [facility] Sep, Vaginitis, vulvitis and OBGYN [facility], vulvovaginitis in diseases [place] [id number] classified elsewhere N77.1 ; Pelvic and perineal pain R10.2 and Excessive and frequent menstruation with regular cycle N92.0 [facility] Jul, [place] [id number] [place] [facility] Jul, [place] [id number] [place] [facility] May, [place] [id number] [place] [facility] [address] May, [place] [id number] [place] [facility] Apr, [place] [id number] [place] [facility] Apr, Encounter for OBN [facility], gynecological examination [place] [id number] (general) (routine) without abnormal findings Z01.419 ; Polycystic ovarian syndrome E28.2 and Excessive and frequent menstruation with regular cycle N92.0 [place] [facility] Apr, [place] [id number] [place] [facility] Apr, Acute vaginitis N76.0 [place] [id number] [place] [facility] Dec, [place] [address] [place] [facility] [address] May, [place] [address] [place] [facility] May, [place] [id number] [place] [facility] May, Candidiasis of vulva and OBGYN [facility], vagina B37.3 [place] [id number] [place] [facility] May, Other specified OBGYN [facility], noninflammatory disorders [place] [address] of vagina N89.8 and Encounter for screening for infections with a predominantly sexual mode of transmission Z11.3 [place] [facility] May, [place] [address] [place] [facility] Apr, [place] [address] [place] [facility] Apr, Acute vaginitis N76.0 [place] [id number] [place] [facility] Oct, [place] [address] [place] [facility] Sep, [place] [id number] [place] [facility] Sep, [place] [id number] [place] [facility] Sep, Polycystic ovarian OBGYN [facility], syndrome E28.2 [place] [id number] [place] [facility] Sep, Polycystic ovarian OBGYN [facility], syndrome E28.2 ; [place] [id number] Unspecified ovarian cysts N83.20 and Body mass index (BMI) 27.0-27.9, adult Z68.27 [facility] 07 Aug, 2016 Encounter for [facility] [address] [place] [address], gynecological examination [place] [id number] (general) (routine) with abnormal findings Z01.411 and Polycystic ovarian syndrome E28.[address] [place] [address] 22 May, [address] [place] [address], syndrome E28.2 ; Pelvic [place] [address] and perineal pain R10.2 and Body mass index (BMI) 27.0-27.9, adult Z68.[address] 16 Feb, [address], syndrome E28.2 ; Body mass [place] [address]26 index (BMI) 30.0-30.9, adult Z68.30 and Pelvic and perineal pain R10.[address] Dec, [facility] Road [address], [place] [id number] [facility] Dec, OBN [address] [id number] [place] [facility] Oct, Polycystic ovarian OBGYN [facility], syndrome E28.2 [place] [id number] [facility] [address] [place] [address] Aug, Polycystic ovarian OBGYN [address], syndrome E28.2 ; Body mass [place] 99[address] index (BMI) 40.0-44.9, adult Z68.41 and Unspecified ovarian cysts N83.20 [place] [facility] Aug, Polycystic ovarian OBGYN [facility], syndrome E28.2 and [place] [address] Irregular menstruation, unspecified N92.6 [place] [facility] Aug, Polycystic ovarian OBGYN [facility], syndrome E28.2 [place] [id number] [place] [facility] Aug, OBGYN [facility], [place] [id number] [facility] Aug, OBG[place] [id number] [address] Aug, Encounter for OBGYN [address] [place], gynecological examination [place] [id number] (general) (routine) with abnormal findings Z01.411 ; Encounter for screening for malignant neoplasm of cervix Z12.4 ; Polycystic ovarian syndrome E28.2 and Body mass index (BMI) 40.0-44.9, adult Z68.41 IMMUNIZATIONS No Known Immunizations SOCIAL HISTORY Never Assessed REASON FOR REFERRAL FUNCTIONAL STATUS PLAN OF CARE VITAL SIGNS MEDICATIONS Unknown Medications PROCEDURES No Known procedures RESULTS No Results REASON FOR VISIT hyst/D & C Insurance Providers [facility] Health Health Member Patient Patient Patient Patient Patient Subscriber Subscriber Subscriber Group Insurance Plan Plan Plan Plan ID Relationship Address Phone Name Date of ID Name Date of No Type Insurance Insurance Insurance Coverage to Subscriber Address Phone Name Dates [address] [phone] Haskins self Margaret [id number] [address] [address] [facility] [phone] Cervantes self Margaret [id number] [facility] [address] Healthcare [facility] [address] MEDICAL (GENERAL) HISTORY Type Description Date Medical [...]
--- OUTSIDE RECORDS SUMMARY | 2019-06-02 10:41 | XMS REPORT ---
:1980 Author Organization [facility] Address [address] [place] [address] Care Team Providers Name Role Phone Magy Tai Unavailable Unavailable PROBLEMS Type Condition ICD9-CM Code [id number] Code Onset Condition SNOMED Code Dates Status Problem Excessive and N92.0 Active 594901083 frequent menstruation with regular cycle Problem Acute vaginitis N76.0 Active 62912961 Problem Polycystic E28.2 Active 20759919 ovarian syndrome Problem Body mass index Z68.27 Active 779537013 (BMI) 27.0-27.9, adult ALLERGIES No Information ENCOUNTERS Encounter Location Date Diagnosis [facility] [address], [place] [id number] [facility] [address], [place] [id number] [facility] [address] Mar, [place] [id number] [facility] [address] Mar, Excessive and frequent [facility] [place], [place] [id number] menstruation with regular cycle N92.0 [facility] [address] Jan, Excessive and frequent OBGYN [facility], menstruation with regular [place] [address] cycle N92.0 [facility] [address] Dec, [place] [id number] [facility] [address] Dec, [place] [id number] [facility] [address] Dec, [place] [id number] [facility] [address] Dec, [place] [id number] [facility] 103 Dec, Excessive and frequent OBGYN [facility], menstruation with regular [place] [id number] cycle N92.0 and Acute vaginitis N76.0 [facility] [address] Dec, [place] [id number] [facility] [address] Dec, Acute vaginitis N76.0 [place] [id number] [facility] 103 Dec, Acute vaginitis N76.0 [place]BG[place] [id number] [facility] 103 Dec, Acute vaginitis N76.0 [place] [id number] [facility] [address] Oct, [place] [id number] [facility] [address] Oct, Pelvic and perineal pain OBGYN [facility], R10.2 and Excessive and [place] [address] frequent menstruation with regular cycle N92.0 [facility] [address] Oct, Pelvic and perineal pain OBGYN [facility], R10.2 ; Excessive and [place] [address] frequent menstruation with regular cycle N92.0 and Polycystic ovarian syndrome E28.2 [facility] [address] Oct, [place] [id number] [facility] [address] Oct, [place] [id number] [facility] 103 Oct, [place] [id number] [facility] [address] Sep, [place] [id number] [facility] [address] Sep, [place] [id number] [facility] [address] Sep, [place] [id number] [facility] Sep, Vaginitis, vulvitis and OBGYN [facility], vulvovaginitis in diseases [place] [id number] classified elsewhere N77.1 ; Pelvic and perineal pain R10.2 and Excessive and frequent menstruation with regular cycle N92.0 [facility] [address] Jul, [place] [id number] [facility] Jul, [place] [id number] [facility] [address] May, [place] [id number] [facility] 103 May, [place] [id number] [facility] Apr, [place] [id number] [facility] Apr, [facility] gynecological examination [place] [id number] (general) (routine) without abnormal findings Z01.419 ; Polycystic ovarian syndrome E28.2 and Excessive and frequent menstruation with regular cycle N92.0 [facility] [address] Apr, [place] [id number] [facility] 103 Apr, Acute vaginitis N76.0 [place] [id number] [facility] [address] Dec, [place] [id number] [facility] [address] May, [place] [id number] [facility] [address] May, [place] [id number] [facility] 103 May, Candidiasis of vulva and OBGYN [facility], vagina B37.3 [place] [id number] [facility] May, Other specified OBGYN [facility], noninflammatory disorders [place] [id number] of vagina N89.8 and Encounter for screening for infections with a predominantly sexual mode of transmission Z11.3 [facility] May, [place] [id number] [facility] [address] Apr, [place] [id number] [facility] 103 Apr, Acute vaginitis N76.0 [place], [place] [id number] [facility] [address] Oct, [place], [place] [id number] [facility] [address] Sep, [place] [id number] [facility] [address] Sep, [place], [place] [id number] [facility] 103 Sep, Polycystic ovarian OBGYN [facility], syndrome E28.2 [place] [id number] [facility] 103 Sep, Polycystic ovarian OBGYN [facility], syndrome E28.2 ; [place] [id number] Unspecified ovarian cysts N83.20 and Body mass index (BMI) 27.0-27.9, adult Z68.[address] 07 Aug, [address] [place] [address], gynecological examination [place] [id number] (general) (routine) with abnormal findings Z01.411 and Polycystic ovarian syndrome E28.[address] 22 May, [address] [place] [address], syndrome E28.2 ; Pelvic [place] [id number] and perineal pain R10.2 and Body mass index (BMI) 27.0-27.9, adult Z68.[address] 16 Feb, [address] [place] [address], syndrome E28.2 ; Body mass [place] 373716867 index (BMI) 30.0-30.9, adult Z68.30 and Pelvic and perineal pain R10.[address] Dec, [address]BN [address] [id number] [facility] 28 Dec, [address] [place] [id number] [facility] [address] Oct, Polycystic ovarian OBGYN [facility], syndrome E28.2 [place] [id number] [address] Aug, Polycystic ovarian OBGYN [address], syndrome E28.2 ; Body mass [place] 47[address] index (BMI) 40.0-44.9, adult Z68.41 and Unspecified ovarian cysts N83.20 [facility] [address] Aug, Polycystic ovarian OBGYN [facility], syndrome E28.2 and [place] [address] Irregular menstruation, unspecified N92.6 [facility] [address] Aug, Polycystic ovarian OBGYN [facility], syndrome E28.2 [place] [id number] [facility] [address] Aug, OBGYN [facility], [place] [id number] [facility] [address] Aug, [place] [id number] [address] Aug, Encounter for OBGYN [address] [place], gynecological examination [place] [id number] (general) (routine) with abnormal findings Z01.411 ; Encounter for screening for malignant neoplasm of cervix Z12.4 ; Polycystic ovarian syndrome E28.2 and Body mass index (BMI) 40.0-44.9, adult Z68.41 IMMUNIZATIONS No Known Immunizations SOCIAL HISTORY Never Assessed REASON FOR REFERRAL FUNCTIONAL STATUS PLAN OF CARE VITAL SIGNS MEDICATIONS Unknown Medications PROCEDURES No Known procedures RESULTS No Results REASON FOR VISIT FYI-hyst d&c in OR Insurance Providers [facility] Health Health Member Patient Patient Patient Patient Patient Subscriber Subscriber Subscriber Group Insurance Plan Plan Plan Plan ID Relationship Address Phone Name Date of ID Name Date of No Type Insurance Insurance Insurance Coverage to Subscriber Address Phone Name Dates [place] [phone] [place] self Margaret [id number] [place] [address] [facility] [address] [phone] [place] self Margaret [id number] [place] [address] [facility] [address] [facility] MEDICAL (GENERAL) HISTORY Type Description Date Medical History Hypertension Medical History PCOS Medical History Thyroid CA - 2010 Medical History Hypothyroidism Medical History Asthma Medical History Ovarian cyst Surgical History 2004, 2008, Surgical History Thyroidectomy 2011 Surgical History 2012 Surgical History Sinus Surgery 2016 Surgical History D/C- Miscarriage 2009 Surgical History gastric sleeve 11/04/2015 Hospitalization History see above
--- OUTSIDE RECORDS SUMMARY | 2019-06-02 10:41 | XMS REPORT ---
:1980 Author Name Melania Huitrondith Address [address] [place] [address] Care Team Providers Name Role Phone Abigail Huitron Unavailable Unavailable PROBLEMS Type Condition ICD9-CM Code [id number] Code Onset Condition SNOMED Code Dates Status Problem Excessive and N92.0 Active 751494634 frequent menstruation with regular cycle Problem Acute vaginitis N76.0 Active 62553821 Problem Polycystic E28.2 Active 65160709 ovarian syndrome Problem Body mass index Z68.27 Active 599856782 (BMI) 27.0-27.9, adult ALLERGIES Substance Reaction Event Type Date Status penicillin hives Drug Allergy Jan, Active ENCOUNTERS Encounter Location Date [facility] [address], [place], [place] [id number] [facility] [address] Mar, [place] [id number] [facility] [address] Mar, [place] [id number] [facility] [address] Mar, Excessive and frequent Medical [facility] [place] [id number] menstruation with regular cycle N92.0 [facility] [address] Jan, Excessive and frequent OBGYN [facility], menstruation with regular [place] [address]87[address] cycle N92.0 [facility] [address] Dec, [place] [id number] [facility] [address] Dec, [place] [id number] [facility] [address] Dec, [place], [place] [id number] [facility] [address] Dec, [place] [id number] [facility] 103 Dec, Excessive and frequent OBGYN [facility], menstruation with regular [place] [address]10[address] cycle N92.0 and Acute vaginitis N76.0 [facility] 103 Dec, [place] [id number] [facility] 103 Dec, Acute vaginitis N76.0 [place] [id number] [facility] [address] Dec, Acute vaginitis N76.0 [place] [id number] [facility] 103 Dec, Acute vaginitis N76.0 [place] [id number] [facility] [address] Oct, [place], [place] [id number] [facility] 103 Oct, Pelvic and perineal pain OBGYN [facility], R10.2 and Excessive and [place] [address] frequent menstruation with regular cycle N92.0 [facility] 103 Oct, Pelvic and perineal pain OBGYN [facility], R10.2 ; Excessive and [place] [address] frequent menstruation with regular cycle N92.0 and Polycystic ovarian syndrome E28.2 [facility] [address] Oct, [place] [id number] [facility] [address] Oct, [place] [id number] [facility] 103 Oct, [place] [id number] [facility] 103 Sep, [place] [id number] [facility] [address] Sep, [place] [id number] [facility] [address] Sep, [place] [id number] [facility] 103 Sep, Vaginitis, vulvitis and OBGYN [facility], vulvovaginitis in diseases [place] [id number] classified elsewhere N77.1 ; Pelvic and perineal pain R10.2 and Excessive and frequent menstruation with regular cycle N92.0 [facility] [address] Jul, [place] [id number] [facility] [address] Jul, [place] [id number] [facility] [address] May, [place] [id number] [facility] 103 May, [place] [id number] [facility] [address] Apr, [place] [id number] [facility] 103 Apr, Encounter for OBGYN [facility], gynecological examination [place] [id number] (general) (routine) without abnormal findings Z01.419 ; Polycystic ovarian syndrome E28.2 and Excessive and frequent menstruation with regular cycle N92.0 [facility] [address] Apr, [place] [id number] [facility] 103 Apr, Acute vaginitis N76.0 [place] [id number] [facility] 103 Dec, [place] [id number] [facility] 103 May, [place], [place] [id number] [facility] 103 May, [place] [id number] [facility] 103 May, Candidiasis of vulva and OBGYN [facility], vagina B37.3 [place] [id number] [facility] [address] May, Other specified OBGYN [facility], noninflammatory disorders [place] [address] of vagina N89.8 and Encounter for screening for infections with a predominantly sexual mode of transmission Z11.3 [facility] 103 May, [place] [id number] [facility] 103 Apr, [place], [place] [id number] [facility] 103 Apr, Acute vaginitis N76.0 [place] [id number] [facility] [address] Oct, [place] [id number] [facility] 103 Sep, [place] [id number] [facility] [address] Sep, [place] [id number] [facility] 103 Sep, Polycystic ovarian OBGYN [facility], syndrome E28.2 [place] [id number] [facility] 103 Sep, Polycystic ovarian OBGYN [facility], syndrome E28.2 ; [place] [id number] Unspecified ovarian cysts N83.20 and Body mass index (BMI) 27.0-27.9, adult Z68.27 [facility] 07 Aug, [facility] [address], gynecological examination [place] [id number] (general) (routine) with abnormal findings Z01.411 and Polycystic ovarian syndrome E28.[address] [facility] [address] May, Polycystic ovarian OBGYN [address], syndrome E28.2 ; Pelvic [place] [id number] and perineal pain R10.2 and Body mass index (BMI) 27.0-27.9, adult Z68.[address] 16 Feb, [address], syndrome E28.2 ; Body mass [place] 122596050 index (BMI) 30.0-30.9, adult Z68.30 and Pelvic and perineal pain R10.[address] Dec, [facility] [address] [place] [id number] [facility] Dec, [address], [place] [id number] [facility] [address] Oct, Polycystic ovarian OBGYN [facility], syndrome E28.2 [place] [id number] [facility] [address] [place] [address] Aug, Polycystic ovarian O[address], syndrome E28.2 ; Body mass [place] 568[address]4824 index (BMI) 40.0-44.9, adult Z68.41 and Unspecified ovarian cysts N83.20 [facility] [address] Aug, Polycystic ovarian OBGYN [facility], syndrome E28.2 and [place] [id number] Irregular menstruation, unspecified N92.6 [facility] [address] Aug, Polycystic ovarian OBGYN [facility], syndrome E28.2 [place] [id number] [facility] [address] Aug, OBGYN [facility] [place] [id number] [facility] 103 Aug, [place]BG[place] [id number] [facility] Aug, Encounter for OBGYN [address] [place], gynecological examination [place] [id number] (general) (routine) with abnormal findings Z01.411 ; Encounter for screening for malignant neoplasm of cervix Z12.4 ; Polycystic ovarian syndrome E28.2 and Body mass index (BMI) 40.0-44.9, adult Z68.41 IMMUNIZATIONS No Known Immunizations SOCIAL HISTORY Never Assessed REASON FOR REFERRAL FUNCTIONAL STATUS PLAN OF CARE Activity Details Follow Up as scheduled Reason: VITAL SIGNS Height 66 in 2019-02-25 Weight 164 lbs 2019-02-25 BMI 26.47 kg/m2 2019-02-25 Blood pressure systolic 128 mm Hg 2019-02-25 Blood pressure diastolic 84 mm Hg 2019-02-25 MEDICATIONS Medication Instructions Dosage Frequency Start End Duration Status Date Date iron Active Pro Air Inhaler Active Vitamin B12 100 orally once a day 1 tab(s) 24h Active mcg misoprostol 200 orally once with 1 tab(s) Dec, Active mcg dinner night 2019 before, once just before bed, once in morning with sip of water Synthroid 137 mcg orally once a day 1 tab(s) 24h Active (0.137 mg) Ondansetron orally every 8 1 tab(s) Dec, Active Hydrochloride 4 hours prn 2019 mg Diflucan 150 mg orally once, 2nd 1 tab(s) 18 Oct, 2 days Active tab 72 hrs later 2019 if still symptomatic MetroGel-Vaginal intravaginally 1 appful Dec, 10 days Active 0.75% once a day (at 2019 bedtime) Vitamin D3 1000 orally once a day 1 tab(s) 24h Active intl units biotin 1000 mcg orally once a day 1 tab(s) 24h Active Omeprazole 20 mg. 1 Active Dulera 5 mcg-200 inhaled 2 times a 2 puff(s) 12h 30 day(s) Active mcg/inh day PROCEDURES No Known procedures RESULTS Name Result Date Reference Range UA RFX MICRO & CULTURE II 2019-02-25 URINE COLOR Yellow YELLOW URINE CLARITY Clear CLEAR URINE GLUCOSE - DIPSTICK NEGATIVE NEGATIVE URINE BILIRUBIN - DIPSTICK NEGATIVE NEGATIVE URINE KETONE NEGATIVE NEGATIVE URINE SPECIFIC GRAVITY 1.025 1.010-1.030 URINE BLOOD NEGATIVE Negative URINE PH 6.0 6.5-7.5 URINE PROTEIN - DIPSTICK NEGATIVE NEGATIVE URINE UROBILINOGEN - DIPSTICK < 2.0 < 2.0 URINE NITRITE - DIPSTICK NEGATIVE NEGATIVE URINE LEUK ESTERASE NEGATIVE NEGATIVE URINE CULTURE 2019-02-25 URINE CULTURE URETHRAL CONSUELO REASON FOR VISIT presurg Insurance Providers [facility] Health Member Patient Patient Patient Patient Patient Subscriber Subscriber Subscriber Group Insurance Plan Plan Plan Plan ID Relationship Address Phone Name Date of ID Name Date of No Type Insurance Insurance Insurance Coverage to Subscriber Address Phone Name Dates [place] [phone] [place] self Margaret [id number] [place] [address] [facility] [address] [facility] [phone] [place] self Margaret [id number] [place] [id number] [facility] [address] MEDICAL (GENERAL) HISTORY Type Description Date Medical History Hypertension Medical History PCOS Medical History Thyroid CA - 2011 Medical History Hypothyroidism Medical History Asthma Medical History Ovarian cyst Surgical History 2003, 2008, Surgical History Thyroidectomy 2011 Surgical History 2012 Surgical History Sinus Surgery 2016 Surgical History D/C- Miscarriage 2009 Surgical History gastric sleeve 11/04/2015 Hospitalization History see above
--- OUTSIDE RECORDS SUMMARY | 2019-06-02 10:41 | XMS REPORT | Continuity of Care Document ---
:1980 External Reference #:[id number] Author Name Donald Webster N.P. Address [address] [facility] [address] [place] [address] Problems Active Problems Provider Date Asthma without status asthmaticus Ida Hill FNP Onset: 05/28/2013 Allergic rhinitis Ida Hill FNP Onset: 05/28/2013 Hypothyroidism Ida Hill FNP Onset: 05/28/2013 Anxiety state Ida Hill FNP Onset: 05/28/2013 Depressive disorder Ida Hill FNP Onset: 05/28/2013 Attention deficit hyperactivity disorderSergio Jennifer, FNP Onset: 2013 predominantly inattentive type Indigestion Conchis Edwards M.D. Onset: 05/26/2014 Peptic reflux disease Conchis Edwards M.D. Onset: 05/26/2014 Sleep apnea Conchis Edwards M.D. Onset: 05/26/2014 Obesity Conchis Edwards M.D. Onset: 05/26/2014 Social History Type Date Description Comments Sex Unknown ETOH Use Currently consumes alcohol pt drinks when not preg. Tobacco Use Start: Unknown End: Patient is a former smoker Unknown Allergies, Adverse Reactions, Alerts Active Allergies Reaction Severity Comments Date Penicillin 12/26/2011 Medications Active Medications SIG Qnty Indications Ordering Date Provider Cephalexin 1 cap by mouth 42caps J01.40 Conchis Edwards, 04/04/2019 500mg three times a day M.D. Capsules Fluconazole 1 tab by mouth 2tabs J01.40 Conchis Edwards, 04/04/2019 150mg today and july M.D. Tablets repeat On Last Day Of Abx Benadryl Allergy 1 tab by mouth 30caps J01.40 Conchis Edwards, 04/04/2019 25mg every day at M.D. Capsules bedtime Dulera 2 puff twice a day 39gm J45.909 Conchis Edwards, 04/11/2018 200-5mcg/Act M.D. Aerosol Synthroid 1 tab by mouth E03.9 Conchis Edwards, 11/28/2016 137mcg every day- M.D. Tablets Prescribed By DR Rolon [facility] Nasacort Allergy 1-2 sprays/nostril 1units J30.9 Conchis Edwards, 2013 24HR daily as needed M.D. 55mcg/Act Aerosol Omeprazole 1 by mouth twice a 180caps K30 Conchis Edwards, 03/04/2014 40mg day M.D. Capsules K21.0 Proair HFA 1-2 puffs q4-6 2units J45.909 Conchis Edwards, 03/14/2013 108(90Base) hours as needed M.D. mcg/Act Aerosol for sob R06.02 Medications Administered in Office Medication SIG Qnty Indications Ordering Provider Date Injection Intramuscular Conchis Edwards M.D. 07/21/1999 Injection-Antibiotic Injection Immunizations CPT Code Status Date Vaccine Lot # 29464 Given 03/04/2014 Flu Vaccine [id number] Given 02/15/2011 Flu Vaccine 05320 Given 04/04/2006 Flu Vaccine 30180 Given 10/31/2000 Hep B To Age 20 73136 Given 10/31/2000 MMR Vital Signs Date Vital Result Comment 04/04/2019 10:08am BP Systolic 118 mmHg BP Diastolic 62 mmHg Height 66 inches 5'6" Weight 160.00 lb BMI (Body Mass Index) 25.8 kg/m2 Heart Rate 91 /min Body Temperature 97.3 F Respiratory Rate 16 /min 10/01/2018 9:26am BP Systolic 110 mmHg BP Diastolic 70 mmHg Height 66 inches 5'6" Weight 160.00 lb BMI (Body Mass Index) 25.8 kg/m2 Heart Rate 88 /min Body Temperature 97.6 F Respiratory Rate 18 /min Results Test Acquired Date Facility Test Result H/L Range Note Laboratory test 12/24/2018 [facility] TSH 0.708 u[IU]/mL 0.270-4.200 finding Free Thyroxine 1.48 ng/dL 0.93-1.70 Thyroglob And AB, 12/24/2018 [facility] Thyroglob SerPl-mCnc 0.1 ng/mL <35 1 Quant Thyroglob Ab SerPl-aCnc <0.9 IU/mL <2.3 2 1 (NOTE) Note: High Biotin intake may cause falsely low results. Interpretation: If Thyroglobulin Antibody results ">2.3 IU/mL", Thyroglobulin testing via LC-MS/MS should be ordered, which is a send out test ([facility] Test Code:250665). Test performed on [employer] Access 2 using immunoenzymatic immunoassay technology. 2 (NOTE) Note: High Biotin intake may cause falsely low results. Test performed on [employer] Access 2 using immunoenzymatic immunoassay technology. Procedures Date Code Description Status 04/04/2019 16174 Tympanometry Completed Medical Devices Description No Information Available Encounters Type Date Location Provider Dx Diagnosis Office Visit 04/04/2019 [place] [facility] Donald Webster, I10 Essential ( primary) 10:15a N.P. hypertension E03.9 Hypothyroidism, unspecified J45.909 Unspecified asthma, uncomplicated G47.30 Sleep apnea, unspecified K21.0 Gastro-esophageal reflux disease with esophagitis J02.0 Streptococcal pharyngitis K30 Functional dyspepsia F33.9 Major depressive disorder, recurrent, unspecified E66.01 Morbid (severe) obesity due to excess calories E28.2 Polycystic ovarian syndrome C73 Malignant neoplasm of thyroid gland L20.9 Atopic dermatitis, unspecified J30.9 Allergic rhinitis, unspecified Z98.84 Bariatric surgery status H52.13 Myopia, bilateral H00.015 Hordeolum externum left lower eyelid R05 Cough R06.02 Shortness of breath R09.81 Nasal congestion J20.9 Acute bronchitis, unspecified J01.40 Acute pansinusitis, unspecified H66.93 Otitis media, unspecified, bilateral Assessments Date Code Description Provider 04/04/2019 I10 Essential (primary) hypertension Sergey Simmons.P. 04/04/2019 E03.9 Hypothyroidism, unspecified Donald Webster, N.P. 04/04/2019 J45.909 Unspecified asthma, uncomplicated Donald Webster, N.P. 04/04/2019 G47.30 Sleep apnea, unspecified Donald Webster, N.P. 04/04/2019 K21.0 Gastro-esophageal reflux disease with Donald Webster N.P. esophagitis 04/04/2019 J02.0 Streptococcal pharyngitis Donald Webster, N.P. 04/04/2019 K30 Functional dyspepsia Donald Webster, N.P. 04/04/2019 F33.9 Major depressive disorder, recurrent, Donald Webster N.P. unspecified 04/04/2019 E66.01 Morbid (severe) obesity due to excess calories Donald Webster N.P. 04/04/2019 E28.2 Polycystic ovarian syndrome Donald Webster N.P. 04/04/2019 C73 Malignant neoplasm of thyroid gland Donald Webster N.P. 04/04/2019 L20.9 Atopic dermatitis, unspecified Donald Webster, N.P. 04/04/2019 J30.9 Allergic rhinitis, unspecified Donald Webster, N.P. 04/04/2019 Z98.84 Bariatric surgery status Donald Webster N.P. 04/04/2019 H52.13 Myopia, bilateral Donald Webster, N.P. 04/04/2019 H00.015 Hordeolum externum left lower eyelid Donald Webster N.P. 04/04/2019 R05 Cough Donald Webster N.P. 04/04/2019 R06.02 Shortness of breath Donald Webster N.P. 04/04/2019 R09.81 Nasal congestion Donald Webster, N.P. 04/04/2019 J20.9 Acute bronchitis, unspecified Donald Webster, N.P. 04/04/2019 J01.40 Acute pansinusitis, unspecified Donald Webster, N.P. 04/04/2019 H66.93 Otitis media, unspecified, bilateral Donald Webster, N.P. Plan of Treatment 04/04/2019 - Donald Webster N.P.I10 Essential (primary) hypertensionComments: CHECK BP TIW ( PRN)DIET AND FLUID COUNSELING LOW SODIUM DIETWT LOSSF/U LABE03.9 Hypothyroidism, unspecifiedComments:RX REVIEWED AND UPDATEDF/U TSH/ FT4J45.909 Unspecified asthma, uncomplicatedComments:MDI / NEBULIZER TX PRN AVOID EXPOSURE TO SMOKING OR ADYPPN00.30 Sleep apnea, unspecifiedComments:CONTINUE WITH C-PAP F /U ENTK21.0 Gastro-esophageal reflux disease with esophagitisComments:AVOID CAFFEINE, ETOH AND SPICY FOODSTUMS OR MYLANTA PRN CALL WITH PROBLEMS OR FQBVAHMTR70.0 Streptococcal lnfeexpsstsF59 Functional dyspepsiaComments:AVOID CAFFEINE, ETOH AND SPICY FOODSTUMS OR MYLANTA PRN CALL WITH PROBLEMS OR QTRFKDZRE65.9 Major depressive disorder, recurrent, unspecifiedComments: COUNCELLING AND REASSURANCE RELAXATION TECHNIQUES DISCUSSED COUNSELED RE: STRESSORS IN LIFEE66.01 Morbid (severe) obesity due to excess caloriesComments: WT LOSS COUNCELLINGEXERCISEDIET COUNCILLING DUR KOPHYZXM88.2 Polycystic ovarian syndromeComments:F/U WITH OB/GYNC73 Malignant neoplasm of thyroid glandComments:F/U WITH CRICSULVUAYDD66.9 Atopic dermatitis, unspecifiedComments: SKIN CARE INSTRUCTIONS LOTION OR BABY OIL 2-3 APPLICATION PER DAYUSE MOISTURIZING SOAPAVOID PROLONGED WATER EXPOSUREAVOID USING HOT WATER IN DRJUPLZ21.9 Allergic rhinitis, unspecifiedComments:INCREASE PO FLUID USE ANTIHISTAMINE PRN SECOND HAND SMOKING AYQKFOAKWS75.84 Bariatric surgery statusComments:F/U WITH SURGERYF/U DIET KNCNWTFXCOLMOY81J43.13 Myopia, bilateralComments:USE GLASSES/ CONTACTSF/U WITH KRKUPAAJALFIQX49.015 Hordeolum externum left lower eyelidComments:RESOLVED S/P [id number] CoughComments: INCREASE CLEAR LIQUIDSSTEAMGARGLE WARM SALT H2O TID ROBITUSSIN DM PRNR06.02 Shortness of breathComments:INCREASE PO HDEMFKQJIC24.81 Nasal congestionComments :INCREASE PO FLUIDTYLENOL OR MOTRIN PRNREST USE ANTIHISTAMINE PRNJ20.9 Acute bronchitis, unspecifiedComments:INCREASE PO DEPKJJKHGD85.40 Acute pansinusitis, unspecifiedNew Medication:Cephalexin 500 mg - 1 cap by mouth three times a dayFluconazole 150 mg - 1 tab by mouth today and may repeat On Last Day Of AbxBenadryl Allergy 25 mg - 1 tab by mouth every day at bedtimeComments: INCREASE PO FLUIDTYLENOL OR MOTRIN PRN ANTIHISTAMINE PRNH66.93 Otitis media, unspecified, bilateralComments:INCREASE PO FLUID TYLENOL OR MOTRIN PRN ANTIHISTAMINE PRN Functional Status Functional Condition Comment Date Status .None Active Mental Status Description No Information Available Referrals Description No Information Available
--- OUTSIDE RECORDS SUMMARY | 2019-06-02 10:41 | XMS REPORT ---
:[address] [facility] Address [address] [place] [address] Care Team Providers Name Role Phone Magy Tai Unavailable Unavailable PROBLEMS Type Condition ICD9-CM Code TOM86-EY Code Onset Condition SNOMED Code Dates Status Problem Excessive and N92.0 Active 240312674 frequent menstruation with regular cycle Problem Acute vaginitis N76.0 Active 38517207 Problem Polycystic E28.2 Active 24653457 ovarian syndrome Problem Body mass index Z68.27 Active 525064423 (BMI) 27.0-27.9, adult ALLERGIES No Information ENCOUNTERS Encounter Location Date Diagnosis [facility] [address], [place], [place] [id number] [facility] [address], [place] [id number] [facility] [address], [place] [id number] [facility] [address] Mar, Excessive and frequent [facility] [place] [id number] menstruation with regular cycle N92.[address] [facility] [address] Jan, Excessive and frequent OBGYN [facility], menstruation with regular [place] [id number] cycle N92.[address] [facility] [address] Dec, [place] [id number] [facility] [address] Dec, [place] [id number] [facility] [address] Dec, [place] [id number] [facility] [address] Dec, [place] [id number] [facility] 103 Dec, Excessive and frequent OBGYN [facility], menstruation with regular [place] [id number] cycle N92.0 and Acute vaginitis N76.0 [facility] [address] Dec, [place] [id number] [facility] [address] Dec, Acute vaginitis N76.0 [place] [id number] [facility] [address] Dec, Acute vaginitis N76.0 [place] [id number] [facility] [address] Dec, Acute vaginitis N76.0 [place] [id number] [facility] [address] Oct, [place] [id number] [facility] [address] Oct, Pelvic and perineal pain OBGYN [facility], R10.2 and Excessive and [place] [id number] frequent menstruation with regular cycle N92.0 [facility] [address] Oct, Pelvic and perineal pain OBGYN [facility], R10.2 ; Excessive and [place] [address] frequent menstruation with regular cycle N92.0 and Polycystic ovarian syndrome E28.2 [facility] [address] Oct, [place]BG[place] [id number] [facility] [address] Oct, [place] [id number] [facility] [address] Oct, [place] [id number] [facility] [address] Sep, [place] [id number] [facility] [address] Sep, [place] [id number] [facility] Sep, [place] [id number] [facility] Sep, Vaginitis, vulvitis and OBGYN [facility], vulvovaginitis in diseases [place] [id number] classified elsewhere N77.1 ; Pelvic and perineal pain R10.2 and Excessive and frequent menstruation with regular cycle N92.0 [facility] [address] Jul, [place] [id number] [facility] Jul, [place] [id number] [facility] [address] May, [place] [id number] [facility] [address] May, [place] [id number] [facility] Apr, [place] [id number] [facility] Apr, [facility] [place] [id number] (general) (routine) without abnormal findings Z01.419 ; Polycystic ovarian syndrome E28.2 and Excessive and frequent menstruation with regular cycle N92.0 [facility] Apr, [place] [id number] [facility] Apr, Acute vaginitis N76.0 [place] [id number] [facility] [address] Dec, [place] [id number] [facility] [address] May, [place] [id number] [facility] [address] May, [place] [id number] [facility] May, Candidiasis of vulva and OBGYN [facility], vagina B37.3 [place] [id number] [facility] May, Other specified OBGYN [facility], noninflammatory disorders [place] [id number] of vagina N89.8 and Encounter for screening for infections with a predominantly sexual mode of transmission Z11.3 [facility] May, [place] [id number] [facility] Apr, [place] [id number] [facility] Apr, Acute vaginitis N76.0 [place] [id number] [facility] [address] Oct, [place] [id number] [facility] Sep, [place], [place] [id number] [facility] Sep, [place] [id number] [facility] Sep, Polycystic ovarian OBGYN [facility], syndrome E28.2 [place] [id number] [facility] Sep, Polycystic ovarian OBGYN [facility], syndrome E28.2 ; [place] [id number] Unspecified ovarian cysts N83.20 and Body mass index (BMI) 27.0-27.9, adult Z68.[address] [facility] 07 Aug, [address] [place] [address], gynecological examination [place] [id number] (general) (routine) with abnormal findings Z01.411 and Polycystic ovarian syndrome E28.[address] [facility] 22 May, [address] [place] [address], syndrome E28.2 ; Pelvic [place] [id number] and perineal pain R10.2 and Body mass index (BMI) 27.0-27.9, adult Z68.[address] 16 Feb, [address] [place] [address], syndrome E28.2 ; Body mass [place] [id number] index (BMI) 30.0-30.9, adult Z68.30 and Pelvic and perineal pain R10.[address] Dec, [address] [id number] [facility] 28 Dec, [address] [place] [id number] [facility] [address] Oct, Polycystic ovarian OBGYN [facility], syndrome E28.2 [place] [id number] [address] Aug, Polycystic ovarian [address], syndrome E28.2 ; Body mass [place] [address] index (BMI) 40.0-44.9, adult Z68.41 and Unspecified ovarian cysts N83.20 [facility] [address] Aug, Polycystic ovarian OBGYN [facility], syndrome E28.2 and [place] [id number] Irregular menstruation, unspecified N92.6 [facility] [address] Aug, Polycystic ovarian OBGYN [facility], syndrome E28.2 [place] [id number] [facility] [address] Aug, OBGYN [facility], [place] [id number] [facility] [address] Aug, OBG[place] [id number] [address] Aug, Encounter for [address]BGYN [address] [place], gynecological examination [place] [id number] (general) (routine) with abnormal findings Z01.411 ; Encounter for screening for malignant neoplasm of cervix Z12.4 ; Polycystic ovarian syndrome E28.2 and Body mass index (BMI) 40.0-44.9, adult Z68.41 IMMUNIZATIONS No Known Immunizations SOCIAL HISTORY Never Assessed REASON FOR REFERRAL FUNCTIONAL STATUS PLAN OF CARE VITAL SIGNS MEDICATIONS Unknown Medications PROCEDURES No Known procedures RESULTS No Results REASON FOR VISIT New Refill Request Insurance Providers [facility] Health Member Patient Patient Patient Patient Patient Subscriber Subscriber Subscriber Group Insurance Plan Plan Plan Plan ID Relationship Address Phone Name Date of ID Name Date of No Type Insurance Insurance Insurance Coverage to Subscriber Address Phone Name Dates Jose Maria Rao [phone] Jose Maria self Margaret [id number] [place] [id number] [facility] [id number] [facility] [place] [phone] Cervantes self Margaret [id number] Healthcare [phone] [phone] Healthcare [facility] [address] MEDICAL (GENERAL) HISTORY Type Description Date Medical [...]
--- OUTSIDE RECORDS SUMMARY | 2019-06-02 10:41 | XMS REPORT ---
:1980 Author Name Melania Huitrondith Address [address] [place] [address] Care Team Providers Name Role Phone Abigail Huitron Unavailable Unavailable PROBLEMS Type Condition ICD9-CM Code [id number] Code Onset Condition SNOMED Code Dates Status Problem Excessive and N92.0 Active 936367312 frequent menstruation with regular cycle Problem Acute vaginitis N76.0 Active 00220464 Problem Polycystic E28.2 Active 69856597 ovarian syndrome Problem Body mass index Z68.27 Active 567395840 (BMI) 27.0-27.9, adult ALLERGIES No Information ENCOUNTERS Encounter Location Date Diagnosis [facility] [address], OBG[place] [id number] [facility] [address], [place]BG[place] [id number] [facility] [address] Mar, OBG[place] [id number] [facility] [address] Mar, Excessive and frequent Medical [facility] [place] [id number] menstruation with regular cycle N92.0 [place] [facility] Jan, Excessive and frequent OBGYN [facility], menstruation with regular [place] [address] cycle N92.0 [place] [facility] [address] Dec, [place] [id number] [place] [facility] [address] Dec, [place] [id number] [place] [facility] Dec, [place] [id number] [place] [facility] Dec, [place] [id number] [place] [facility] Dec, Excessive and frequent OBGYN [facility], menstruation with regular [place] [address] cycle N92.0 and Acute vaginitis N76.0 [place] [facility] [address] Dec, OBG[place] [id number] [place] [facility] Dec, Acute vaginitis N76.0 [place] [id number] [place] [facility] Dec, Acute vaginitis N76.0 [place] [id number] [place] [facility] Dec, Acute vaginitis N76.0 [place] [id number] [place] [facility] Oct, OBG[place] [id number] [place] [facility] Oct, Pelvic and perineal pain OBGYN [facility], R10.2 and Excessive and [place] [address] frequent menstruation with regular cycle N92.0 [place] [facility] Oct, Pelvic and perineal pain OBGYN [facility], R10.2 ; Excessive and [place] [id number] frequent menstruation with regular cycle N92.0 and Polycystic ovarian syndrome E28.2 [place] [facility] Oct, OBG[place], [place] [id number] [facility] Oct, [place]BG[place], [place] [id number] [place] [facility] [address] Oct, [place] [id number] [place] [facility] Sep, [place] [id number] [place] [facility] Sep, OBG[place], [place] [id number] [place] [facility] Sep, [place] [id number] [place] [facility] Sep, Vaginitis, vulvitis and OBGYN [facility], vulvovaginitis in diseases [place] [id number] classified elsewhere N77.1 ; Pelvic and perineal pain R10.2 and Excessive and frequent menstruation with regular cycle N92.0 [place] [facility] Jul, [place] [id number] [place] [facility] Jul, [place] [id number] [place] [facility] May, [place] [id number] [place] [facility] [address] May[place] [id number] [place] [facility] Apr, [place] [id number] [place] [facility] Apr, [facility] examination [place] [id number] (general) (routine) without abnormal findings Z01.419 ; Polycystic ovarian syndrome E28.2 and Excessive and frequent menstruation with regular cycle N92.0 [facility] Apr, [place], [place] [id number] [place] [facility] Apr, Acute vaginitis N76.0 [place] [id number] [place] [facility] Dec, [place] [id number] [place] [facility] May, [place] [id number] [place] [facility] May, [place] [id number] [place] [facility] May, Candidiasis of vulva and OBGYN [facility], vagina B37.3 [place] [id number] [place] [facility] May, Other specified OBGYN [facility], noninflammatory disorders [place] [id number] of vagina N89.8 and Encounter for screening for infections with a predominantly sexual mode of transmission Z11.3 [place] [facility] May, [place]BG[place] [id number] [place] [facility] Apr, [place], [place] [id number] [place] [facility] Apr, Acute vaginitis N76.0 [place] [id number] [place] [facility] Oct, [place] [id number] [place] [facility] Sep, [place] [id number] [place] [facility] Sep, [place] [id number] [place] [facility] Sep, Polycystic ovarian OBGYN [facility], syndrome E28.2 [place] [id number] [place] [facility] Sep, Polycystic ovarian OBGYN [facility], syndrome E28.2 ; [place] [id number] Unspecified ovarian cysts N83.20 and Body mass index (BMI) 27.0-27.9, adult Z68.[address] [facility] 07 Aug, [address] [place] [address], gynecological examination [place] [id number] (general) (routine) with abnormal findings Z01.411 and Polycystic ovarian syndrome E28.[address] [facility] 22 May, [address] [place] [address], syndrome E28.2 ; Pelvic [place] [id number] and perineal pain R10.2 and Body mass index (BMI) 27.0-27.9, adult Z68.[address] 16 Feb, [address] [place] [address], syndrome E28.2 ; Body mass [place] 104795190 index (BMI) 30.0-30.9, adult Z68.30 and Pelvic and perineal pain R10.[address] Dec, [address] [id number] [facility] 28 Dec, [address] [place] [id number] [place] [facility] [address] Oct, Polycystic ovarian OBGYN [facility], syndrome E28.2 [place] [id number] [address] Aug, Polycystic ovarian [address]YN [address], syndrome E28.2 ; Body mass [place] 593250942 index (BMI) 40.0-44.9, adult Z68.41 and Unspecified ovarian cysts N83.20 [facility] Aug, Polycystic ovarian OBGYN [facility], syndrome E28.2 and [place] [id number] Irregular menstruation, unspecified N92.6 [facility] Aug, Polycystic ovarian OBGYN [facility], syndrome E28.2 [place] [id number] [place] [facility] Aug, OBGYN [facility], [place] [id number] [place] [facility] Aug, OBG[place] [id number] [facility] [address] [facility] Aug, Encounter for OBGYN [address] [place], gynecological examination [place] [id number] (general) (routine) with abnormal findings Z01.411 ; Encounter for screening for malignant neoplasm of cervix Z12.4 ; Polycystic ovarian syndrome E28.2 and Body mass index (BMI) 40.0-44.9, adult Z68.41 IMMUNIZATIONS No Known Immunizations SOCIAL HISTORY Never Assessed REASON FOR REFERRAL FUNCTIONAL STATUS PLAN OF CARE VITAL SIGNS MEDICATIONS Medication Instructions Dosage Frequency Start End Duration Status Date Date Omeprazole 20 1 Active mg. Pro Air Active Inhaler MetroGel-Vagin intravaginally 1 appful Dec, 5 day(s) Active al 0.75% once a day (at 2019 bedtime) Vitamin D3 orally once a day 1 tab(s) 24h Active 1000 intl units biotin 1000 orally once a day 1 tab(s) 24h Active mcg Synthroid 137 orally once a day 1 tab(s) 24h Active mcg (0.137 mg) Vitamin B12 orally once a day 1 tab(s) 24h Active 100 mcg Diflucan 150 orally once, 2nd 1 tab(s) 18 Dec, 2 days Active mg tab 72 hrs later 2018 if still symptomatic Dulera 5 inhaled 2 times a 2 puff(s) 12h 30 day(s) Active mcg-200 day mcg/inh iron Active PROCEDURES No Known procedures RESULTS No Results REASON FOR VISIT BV Insurance Providers [facility] Health Member Patient Patient Patient Patient Patient Subscriber Subscriber Subscriber Group Insurance Plan Plan Plan Plan ID Relationship Address Phone Name Date of ID Name Date of No Type Insurance Insurance Insurance Coverage to Subscriber Address Phone Name Dates [place] [phone] Jose Maria self Margaret [id number] [place] [address] Care of [facility] [address] [facility] Cervantes [phone] Cervantes self Margaret [id number] Healthcare [id number] [place] [address] MEDICAL (GENERAL) HISTORY Type Description Date Medical [...]
--- OUTSIDE RECORDS SUMMARY | 2019-06-02 10:41 | XMS REPORT ---
:1980 Author Name Melania Huitrondith Address [address] [place] [address] Care Team Providers Name Role Phone Abigail Huitron Unavailable Unavailable PROBLEMS Type Condition ICD9-CM Code MMP35-NO Code Onset Condition SNOMED Code Dates Status Problem Excessive and N92.0 Active 189461924 frequent menstruation with regular cycle Problem Acute vaginitis N76.0 Active 33811477 Problem Polycystic E28.2 Active 26060056 ovarian syndrome Problem Body mass index Z68.27 Active 625370652 (BMI) 27.0-27.9, adult ALLERGIES Substance Reaction Event Type Date Status penicillin hives Drug Allergy Dec, Active ENCOUNTERS Encounter Location Date Diagnosis [facility] [address], OBG[place], [place] [id number] [facility] [address] Mar, [place], [place] [id number] [facility] Mar, [place], [place] [id number] [facility] [address] Mar, Excessive and frequent Medical Center [place], [place] [id number] menstruation with regular cycle N92.0 [facility] [facility] Jan, Excessive and frequent OBG[facility], menstruation with regular [place] 188[address]17[address] cycle N92.0 [facility] [address] Dec, [place] [id number] [facility] [address] Dec, [place] [id number] [facility] [address] Dec, [place], [place] [id number] [facility] Dec, [place], [place] [id number] [facility] [address] Dec, Excessive and frequent OBG[facility], menstruation with regular [place] [address] cycle N92.0 and Acute vaginitis N76.0 [facility] Dec, [place], [place] [id number] [facility] Dec, Acute vaginitis N76.0 [place], [place] [id number] [facility] Dec, Acute vaginitis N76.0 [place] [id number] [facility] Dec, Acute vaginitis N76.0 [place], [place] [id number] [facility] Oct, [place]BG[place], [place] [id number] [facility] Oct, Pelvic and perineal pain OBG[facility], R10.2 and Excessive and [place] [id number] frequent menstruation with regular cycle N92.0 [facility] Oct, Pelvic and perineal pain OBGYN [facility], R10.2 ; Excessive and [place] [id number] frequent menstruation with regular cycle N92.0 and Polycystic ovarian syndrome E28.2 [facility] Oct, OBGYN [place], [place] [id number] [facility] Oct, [place], [place] [id number] [facility] [address] Oct, [place]BG[place], [place] [address] [facility] Sep, [place], [place] [id number] [facility] Sep, [place] [id number] [facility] Sep, [place], [place] [id number] [facility] Sep, Vaginitis, vulvitis and OBGYN [facility], vulvovaginitis in diseases [place] [id number] classified elsewhere N77.1 ; Pelvic and perineal pain R10.2 and Excessive and frequent menstruation with regular cycle N92.0 [facility] Jul, [place], [place] [id number] [facility] Jul, OBG[place], [place] [id number] [facility] May, [place], [place] [id number] [facility] [address] May, [place]BG[place], [place] [id number] [facility] Apr, [place], [place] [id number] [facility] Apr, Encounter for OBGYN [facility], gynecological examination [place] [id number] (general) (routine) without abnormal findings Z01.419 ; Polycystic ovarian syndrome E28.2 and Excessive and frequent menstruation with regular cycle N92.0 [facility] Apr, [place], [place] [id number] [facility] Apr, Acute vaginitis N76.0 [place]BG[place], [place] [id number] [facility] Dec, [place], [place] [id number] [facility] [address] May, [place], [place] [id number] [facility] [address] May, [place] [id number] [facility] [address] May, Candidiasis of vulva and OBGYN [facility], vagina B37.3 [place] [id number] [facility] May, Other specified OBGYN [facility], noninflammatory disorders [place] [id number] of vagina N89.8 and Encounter for screening for infections with a predominantly sexual mode of transmission Z11.3 [facility] [address] May, OBG[place], [place] [id number] [facility] Apr, [place], [place] [id number] [facility] Apr, Acute vaginitis N76.0 [place], [place] [id number] [facility] Oct, [place], [place] [id number] [facility] Sep, [place]BG[place], [place] [id number] [facility] Sep, [place], [place] [id number] [facility] Sep, Polycystic ovarian OBG[facility], syndrome E28.2 [place] [id number] [facility] Sep, Polycystic ovarian OBG[facility], syndrome E28.2 ; [place] [id number] Unspecified ovarian cysts N83.20 and Body mass index (BMI) 27.0-27.9, adult Z68.27 [facility] 07 Aug, [address] [facility] [address], gynecological examination [place] [id number] (general) (routine) with abnormal findings Z01.411 and Polycystic ovarian syndrome E28.[address] [place] [address] May, Polycystic ovarian [address], syndrome E28.2 ; Pelvic [place] [id number] and perineal pain R10.2 and Body mass index (BMI) 27.0-27.9, adult Z68.[address] 16 Feb, [address], syndrome E28.2 ; Body mass [place] 747563383 index (BMI) 30.0-30.9, adult Z68.30 and Pelvic and perineal pain R10.[address] Dec, [address] [address], [place] [id number] [facility] Dec, [address], [place] [id number] [facility] Oct, Polycystic ovarian [facility]BG[facility], syndrome E28.2 [place] [id number] [place] [facility] [address] [place] [address] Aug, Polycystic ovarian [address], syndrome E28.2 ; Body mass [place] 605527362 index (BMI) 40.0-44.9, adult Z68.41 and Unspecified ovarian cysts N83.20 [facility] Aug, Polycystic ovarian OBG[facility], syndrome E28.2 and [place] [id number] Irregular menstruation, unspecified N92.6 [facility] Aug, Polycystic ovarian OBG[facility], syndrome E28.2 [place] [id number] [facility] Aug, OBGYN [facility], [place] [id number] [facility] Aug, [place]BG[place], [place] [id number] [facility] [address] [place] [address] Aug, [address] [place], gynecological examination [place] [id number] (general) (routine) with abnormal findings Z01.411 ; Encounter for screening for malignant neoplasm of cervix Z12.4 ; Polycystic ovarian syndrome E28.2 and Body mass index (BMI) 40.0-44.9, adult Z68.41 IMMUNIZATIONS No Known Immunizations SOCIAL HISTORY Never Assessed REASON FOR REFERRAL FUNCTIONAL STATUS PLAN OF CARE Activity Details Follow Up annual when due Reason: VITAL SIGNS Weight 159 lbs 2019-01-17 Blood pressure systolic 110 mm Hg 2019-01-17 Blood pressure diastolic 80 mm Hg 2019-01-17 MEDICATIONS Medication Instructions Dosage Frequency Start End Date Duration Status Date Vitamin D3 1000 orally once a 1 tab(s) 24h Active intl units day Synthroid 137 orally once a 1 tab(s) 24h Active mcg (0.137 mg) day iron Active Dulera 5 inhaled 2 times 2 puff(s) 12h 30 day(s) Active mcg-200 mcg/inh a day Diflucan 150 mg orally once, 2nd 1 tab(s) 18 Oct, 2 days Active tab 72 hrs later 2018 if still symptomatic Omeprazole 20 1 Active mg. Pro Air Inhaler Active biotin 1000 mcg orally once a 1 tab(s) 24h Active day Vitamin B12 100 orally once a 1 tab(s) 24h Active mcg day PROCEDURES No Known procedures RESULTS Name Result Date Reference Range AFFIRM VAGINITIS PANEL 2019-01-17 Trichomonas vaginalis Negative [Negative] Gardnerella vaginalis POSITIVE [Negative] Gini species Negative [Negative] REASON FOR VISIT continued infection - has not cleared up per pt. Complaints of white discharge & amp; itching X 10 days. Insurance Providers [facility] Health Member Patient Patient Patient Patient Patient Subscriber Subscriber Subscriber Group Insurance Plan Plan Plan Plan ID Relationship Address Phone Name Date of ID Name Date of No Type Insurance Insurance Insurance Coverage to Subscriber Address Phone Name Dates [place]erv[place] [phone] Cervantes self Margaret [id number] [facility] [address] [facility] [address] [place] [phone] Jose Maria Robles [id number] [place] [address] Care [facility] [address] [facility] MEDICAL (GENERAL) HISTORY Type Description Date [...]
--- OUTSIDE RECORDS SUMMARY | 2019-06-02 10:41 | XMS REPORT ---
:1980 Author Organization [facility] Address [address] [place] [address] Care Team Providers Name Role Phone Magy Tai Unavailable Unavailable PROBLEMS Type Condition ICD9-CM Code [id number] Code Onset Condition SNOMED Code Dates Status Problem Excessive and N92.0 Active 900763274 frequent menstruation with regular cycle Problem Acute vaginitis N76.0 Active 62456988 Problem Polycystic E28.2 Active 14217367 ovarian syndrome Problem Body mass index Z68.27 Active 579521837 (BMI) 27.0-27.9, adult ALLERGIES No Information ENCOUNTERS Encounter Location Date Diagnosis [facility] [address], OBGYN [place], [place] [id number] [facility] [address], OBGYN [place] [id number] [facility] Mar, OBGYN [place], [place] [id number] [facility] [address] Mar, Excessive and frequent [facility] [place] [id number] menstruation with regular cycle N92.0 [facility] [address] Jan, Excessive and frequent OBGYN [facility], [place]ation with regular [place] [address] cycle N92.0 [facility] [address] Dec, OBGYN [place], [place] [id number] [facility] [address] Dec, OBGYN [place] [id number] [place] [facility] [address] Dec, OBGYN [place] [id number] [place] [facility] [address] Dec, OBGYN [place], [place] [id number] [place] [facility] 103 Dec, Excessive and frequent OBGYN [facility], menstruation with regular [place] [address] cycle N92.0 and Acute vaginitis N76.0 [place] [facility] [address] Dec, OBGYN [place] [id number] [place] [facility] 103 Dec, Acute vaginitis N76.0 OBG[place] [id number] [place] [facility] 103 Dec, Acute vaginitis N76.0 OBG[place] [id number] [place] [facility] 103 Dec, Acute vaginitis N76.0 OBGYN [place] [id number] [place] [facility] [address] Oct, OBGYN [place] [id number] [place] [facility] 103 Oct, Pelvic and perineal pain OBGYN [facility], R10.2 and Excessive and [place] [id number] frequent menstruation with regular cycle N92.0 [place] [facility] 103 Oct, Pelvic and perineal pain OBGYN [facility], R10.2 ; Excessive and [place] [id number] frequent menstruation with regular cycle N92.0 and Polycystic ovarian syndrome E28.2 [place] [facility] [address] Oct, OBGYN [place], [place] [id number] [facility] [address] Oct, OBGYN [place], [place] [id number] [place] [facility] 103 Oct, OBGYN [place] [id number] [place] [facility] 103 Sep, OBGYN [place], [place] [id number] [place] [facility] [address] Sep, OBGYN [place] [id number] [place] [facility] Sep, OBGYN [place], [place] [id number] [place] [facility] 103 Sep, Vaginitis, vulvitis and OBGYN [facility], vulvovaginitis in diseases [place] [id number] classified elsewhere N77.1 ; Pelvic and perineal pain R10.2 and Excessive and frequent menstruation with regular cycle N92.0 [place] [facility] [address] Jul, OBGYN [place] [id number] [place] [facility] [address] Jul, [place] [id number] [place] [facility] 103 May, [place] [id number] [place] [facility] [address] May, [place] [id number] [place] [facility] Apr, [place] [id number] [place] [facility] 103 Apr, [facility] gynecological examination [place] [id number] (general) (routine) without abnormal findings Z01.419 ; Polycystic ovarian syndrome E28.2 and Excessive and frequent menstruation with regular cycle N92.0 [facility] [address] Apr, OBG[place], [place] [id number] [place] [facility] 103 Apr, Acute vaginitis N76.0 [place] [id number] [place] [facility] [address] Dec, [place]BG[place] [id number] [place] [facility] [address] May, OBG[place] [id number] [place] [facility] 103 May, [place] [id number] [place] [facility] 103 May, Candidiasis of vulva and OBGYN [facility], vagina B37.3 [place] [id number] [place] [facility] May, Other specified OBGYN [facility], noninflammatory disorders [place] [address] of vagina N89.8 and Encounter for screening for infections with a predominantly sexual mode of transmission Z11.3 [place] [facility] [address] May, OBGYN [place] [id number] [place] [facility] Apr, OBG[place], [place] [id number] [place] [facility] 103 Apr, Acute vaginitis N76.0 OBG[place] [id number] [place] [facility] [address] Oct, OBGYN [place], [place] [id number] [place] [facility] 103 Sep, OBGYN [place], [place] [id number] [place] [facility] [address] Sep, OBG[place] [id number] [place] [facility] 103 Sep, Polycystic ovarian OBGYN [facility], syndrome E28.2 [place] [id number] [place] [facility] 103 Sep, Polycystic ovarian OBGYN [facility], syndrome E28.2 ; [place] [id number] Unspecified ovarian cysts N83.20 and Body mass index (BMI) 27.0-27.9, adult Z68.27 [facility] 07 Aug, [address] [place] [address], gynecological examination [place] [id number] (general) (routine) with abnormal findings Z01.411 and Polycystic ovarian syndrome E28.2 [facility] 22 May, [address] [place] [address], syndrome E28.2 ; Pelvic [place] [id number] and perineal pain R10.2 and Body mass index (BMI) 27.0-27.9, adult Z68.[address] 16 Feb, [address] [place] [address], syndrome E28.2 ; Body mass [place] 349520107 index (BMI) 30.0-30.9, adult Z68.30 and Pelvic and perineal pain R10.[address] Dec, [address]BN [address] [id number] [facility] 28 Dec, [address] [place] [id number] [place] [facility] [address] Oct, Polycystic ovarian OBGYN [facility], syndrome E28.2 [place] [id number] [address] Aug, Polycystic ovarian OBGYN [address], syndrome E28.2 ; Body mass [place] 767130409 index (BMI) 40.0-44.9, adult Z68.41 and Unspecified ovarian cysts N83.20 [facility] [address] Aug, Polycystic ovarian OBGYN [facility], syndrome E28.2 and [place] [id number] Irregular menstruation, unspecified N92.6 [facility] [address] Aug, Polycystic ovarian OBGYN [facility], syndrome E28.2 [place] [id number] [place] [facility] [address] Aug, OBGYN [facility], [place] [id number] [place] [facility] [address] Aug, OBGYN [place] [id number] [address] Aug, Encounter for OBGYN [address] [place], gynecological examination [place] [id number] (general) (routine) with abnormal findings Z01.411 ; Encounter for screening for malignant neoplasm of cervix Z12.4 ; Polycystic ovarian syndrome E28.2 and Body mass index (BMI) 40.0-44.9, adult Z68.41 IMMUNIZATIONS No Known Immunizations SOCIAL HISTORY Never Assessed REASON FOR REFERRAL FUNCTIONAL STATUS PLAN OF CARE VITAL SIGNS MEDICATIONS Unknown Medications PROCEDURES No Known procedures RESULTS No Results REASON FOR VISIT BV before sugery Insurance Providers [facility] Member Patient Patient Patient Patient Patient Subscriber Subscriber Subscriber Group Insurance Plan Plan Plan Plan ID Relationship Address Phone Name Date of ID Name Date of No Type Insurance Insurance Insurance Coverage to Subscriber Address Phone Name Dates Jose Maria Rao [phone] Jose Maria self Margaret [id number] [place] [address] [facility] [address] [facility] [place] [phone] [place]erv[place] self Margaret [id number] Healthcare [id number] 42 Healthcare [facility] [address] MEDICAL (GENERAL) HISTORY Type Description Date Medical [...]
--- OUTSIDE RECORDS SUMMARY | 2019-06-02 10:41 | XMS REPORT ---
:1980 Author Organization [facility] Address [address] [place] [address] Care Team Providers Name Role Phone Magy Tai Unavailable Unavailable PROBLEMS Type Condition ICD9-CM Code [id number] Code Onset Condition SNOMED Code Dates Status Problem Excessive and N92.0 Active 679631459 frequent menstruation with regular cycle Problem Acute vaginitis N76.0 Active 97027408 Problem Polycystic E28.2 Active 20424336 ovarian syndrome Problem Body mass index Z68.27 Active 944386555 (BMI) 27.0-27.9, adult ALLERGIES No Information ENCOUNTERS Encounter Location Date Diagnosis [facility] [address] Mar, OBGYN [place], [place] [id number] [facility] [address] Mar, [place]BG[place] [id number] [facility] Mar, OBGYN [place], [place] [id number] [facility] [address] Mar, Excessive and frequent [facility] [place], [place] [id number] menstruation with regular cycle N92.0 [facility] [address] Jan, Excessive and frequent OBGYN [facility], menstruation with regular [place] [address] cycle N92.0 [facility] [address] Dec, OBGYN [place], [place] [id number] [facility] [address] Dec, OBGYN [place], [place] [id number] [place] [facility] [address] Dec, OBGYN [place], [place] [id number] [facility] [facility] [address] Dec, OBG[place], [place] [id number] [facility] [facility] 103 Dec, Excessive and frequent OBGYN [facility], menstruation with regular [place] [address] cycle N92.0 and Acute vaginitis N76.0 [place] [facility] [address] Dec, OBGYN [place], [place] [id number] [facility] [place] [facility] 103 Dec, Acute vaginitis N76.0 [place] [id number] [facility] [facility] 103 Dec, Acute vaginitis N76.0 [place] [id number] [facility] [facility] 103 Dec, Acute vaginitis N76.0 [place]BGYN [place], [place] [address] [facility] [facility] [address] Oct, OBGYN [place], [place] [id number] [facility] [facility] 103 Oct, Pelvic and perineal pain OBGYN [facility], R10.2 and Excessive and [place] [address] frequent menstruation with regular cycle N92.0 [place] [facility] 103 Oct, Pelvic and perineal pain OBGYN [facility], R10.2 ; Excessive and [place] [address] frequent menstruation with regular cycle N92.0 and Polycystic ovarian syndrome E28.2 [place] [facility] [address] Oct, OBG[place], [place] [id number] [facility] [address] Oct, OBGYN [place], [place] [id number] [facility] [place] [facility] 103 Oct, OBGYN [place], [place] [id number] [facility] 103 Sep, OBG[place], [place] [id number] [facility] 103 Sep, OBGYN [place], [place] [id number] [facility] [address] Sep, OBGYN [place], [place] [id number] [facility] [place] [facility] 103 Sep, Vaginitis, vulvitis and OBGYN [facility], vulvovaginitis in diseases [place] [id number] classified elsewhere N77.1 ; Pelvic and perineal pain R10.2 and Excessive and frequent menstruation with regular cycle N92.0 [place] [facility] [address] Jul, OBGYN [place], [place] [id number] [facility] 103 Jul, [place] [id number] [facility] [place] [facility] [address] May, [place] [id number] [facility] [place] [facility] 103 May, [place] [id number] [facility] [address] Apr, [place] [id number] [facility] [facility] 103 Apr, [facility] gy[facility]ological examination [place] [id number] (general) (routine) without abnormal findings Z01.419 ; Polycystic ovarian syndrome E28.2 and Excessive and frequent menstruation with regular cycle N92.0 [facility] [address] Apr, OBG[place], [place] [id number] [place] [facility] 103 Apr, Acute vaginitis N76.0 [place] [id number] [place] [facility] 103 Dec, OBG[place], [place] [id number] [facility] [address] May, OBGYN [place], [place] [id number] [facility] [place] [facility] 103 May, [place]BG[place], [place] [id number] [facility] [facility] 103 May, Candidiasis of vulva and OBGYN [facility], vagina B37.3 [place] [id number] [place] [facility] May, Other specified OBGYN [facility], noninflammatory disorders [place] [address] of vagina N89.8 and Encounter for screening for infections with a predominantly sexual mode of transmission Z11.3 [place] [facility] May, OBG[place], [place] [id number] [facility] [place] [facility] Apr, OBG[place], [place] [id number] [facility] 103 Apr, Acute vaginitis N76.0 [place]BG[place], [place] [id number] [facility] [place] [facility] [address] Oct, OBG[place], [place] [id number] [facility] 103 Sep, OBG[place], [place] [id number] [facility] [address] Sep, OBG[place], [place] [id number] [facility] [place] [facility] 103 Sep, Polycystic ovarian OBGYN [facility], syndrome E28.2 [place] [id number] [place] [facility] [address] Sep, Polycystic ovarian OBGYN [facility], syndrome E28.2 ; [place] [id number] Unspecified ovarian cysts N83.20 and Body mass index (BMI) 27.0-27.9, adult Z68.27 [facility] 07 Aug, [address] [place] [address], gynecological examination [place] [id number] (general) (routine) with abnormal findings Z01.411 and Polycystic ovarian syndrome E28.2 [facility] 22 May, [address] [place] [address], syndrome E28.2 ; Pelvic [place] [id number] and perineal pain R10.2 and Body mass index (BMI) 27.0-27.9, adult Z68.[address] 16 Feb, [address] [place] [address], syndrome E28.2 ; Body mass [place] 784332668 index (BMI) 30.0-30.9, adult Z68.30 and Pelvic and perineal pain R10.[address] Dec, OBN [address] [id number] [facility] 28 Dec, [address] [place] [id number] [place] [facility] 103 Oct, Polycystic ovarian OBGYN [facility], syndrome E28.2 [place] [id number] [address] Aug, Polycystic ovarian [address]BGYN [address], syndrome E28.2 ; Body mass [place] 9586[address]145 index (BMI) 40.0-44.9, adult Z68.41 and Unspecified ovarian cysts N83.20 [facility] 103 Aug, Polycystic ovarian OBGYN [facility], syndrome E28.2 and [place] [id number] Irregular menstruation, unspecified N92.6 [facility] [address] Aug, Polycystic ovarian OBGYN [facility], syndrome E28.2 [place] [id number] [place] [facility] [address] Aug, OBGYN [facility], [place] [id number] [facility] [address] Aug, OBGYN [place], [place] [id number] [address] Aug, Encounter for OBGYN [address] [place], gynecological examination [place] [id number] (general) (routine) with abnormal findings Z01.411 ; Encounter for screening for malignant neoplasm of cervix Z12.4 ; Polycystic ovarian syndrome E28.2 and Body mass index (BMI) 40.0-44.9, adult Z68.41 IMMUNIZATIONS No Known Immunizations SOCIAL HISTORY Never Assessed REASON FOR REFERRAL FUNCTIONAL STATUS PLAN OF CARE VITAL SIGNS MEDICATIONS Unknown Medications PROCEDURES No Known procedures RESULTS No Results REASON FOR VISIT [email or web address] Insurance Providers [facility] Member Patient Patient Patient Patient Patient Subscriber Subscriber Subscriber Group Insurance Plan Plan Plan Plan ID Relationship Address Phone Name Date of ID Name Date of No Type Insurance Insurance Insurance Coverage to Subscriber Address Phone Name Dates [place] [phone] [place] self Margaret [id number] [address] [address] [facility] [place] [phone] Cerv[place] self Margaret [id number] Healthcare [address] [facility] [address] MEDICAL (GENERAL) HISTORY Type Description Date Medical [...]
[2019-06-02 11:02] VITALS: BP 160/115
[2019-06-02] MEDS ORDERED: Albuterol/Ipratropium NEB.SOL* Albuterol 2.5 MG/Ipratropium 0.5 MG 3 ML INH ONE (11:27)
--- NOTE | 2019-06-02 11:36 | UC ---
Respiratory Complaint HPI - HPI Summary HPI Summary: 38-year-old asthmatic who has been sick with flulike illness since last with wheezing and productive cough. She also complains of a left mid back soreness with coughing. She is a nonsmoker. She has an inhaler at home but no nebulizer. - History of Current Complaint Chief Complaint: UCGeneralIllness Stated Complaint: CONGESTION BACK PAIN Time Seen by Provider: 06/02/19 11:24 Hx Obtained From: Patient Hx Last Menstrual Period: 05/27/19 ?: No Onset/Duration: Gradual Onset, Lasting Days Timing: Intermittent Episodes Severity Initially: Moderate Severity Currently: Moderate Pain Intensity: 7 Character: Cough: Productive - Occasional productive cough of greenish sputum. Aggravating Factors: Deep Breaths Alleviating Factors: Nothing Associated Signs And Symptoms: Positive: Fever, Wheezing, URI, Nasal Congestion - Allergies/Home Medications Allergies/Adverse Reactions: Allergies Allergy/AdvReac Type Severity Reaction Status Date / Time Penicillins Allergy Intermediate Rash Verified 06/02/19 10:55 Home Medications: Home Medications Cholecalciferol TAB* [Vitamin D TAB*] 1,000 units PO DAILY tab 11/10/15 [Rx Confirmed 06/02/19] Cyanocobalamin TAB* [Vitamin B12 TAB*] 2,500 mcg PO DAILY 09/22/16 [History Confirmed 06/02/19] Levothyroxine TAB* [Synthroid 137 MCG TAB*] 137 mcg PO DAILY 09/22/16 [History Confirmed 06/02/19] Mometasone/Formoter 200/5 MDI* [Dulera 200/5 MDI*] 2 puff INH BID 12/26/16 [ History Confirmed 06/02/19] Omeprazole CAP (NF) [Prilosec CAP* 20 MG] 20 mg PO BID 12/26/16 [History Confirmed 06/02/19] Ferrous Sulfate TAB* 325 mg PO DAILY 08/14/17 [History Confirmed 06/02/19] Albuterol inh POWDER (NF) [Proair Respiclick] 2 puff INH Q4HR PRN 12/25/18 [ History Confirmed 06/02/19] Albuterol 2.5MG/3ML (0.083%)* [Ventolin 2.5 MG/3 ML NEB.HAYDEE*] 2.5 mg INH Q4H PRN #30 units 06/02/19 [Rx] Azithromyxin ROBIN (NF) [Z-Robin (Zithromax) 250 mg tabs #6] 2 tab PO .TODAY, THEN 1 DAILY #6 tab 06/02/19 [Rx] predniSONE 10 mg TAB [Deltasone 10 MG TAB*] 10 mg PO DAILY 12 Days #32 tab 06/01 [Rx] predniSONE [Prednisone 20 MG TAB] 2 tab PO DAILY 06/02/19 [History Confirmed 05/22] PMH/Surg Hx/FS Hx/Imm Hx Previously Healthy: Yes Endocrine History: Thyroid Disease Respiratory History: Asthma GI/ History: Ulcer Other History Of: Negative For: Anticoagulant Therapy - Surgical History Surgical History: Yes Surgery Procedure, Year, and Place: 3x c-sections. full thyroidectomy. sinus surgery. gastric sleeve 2016. D&C's. cholecystectomy - Family History Known Family History: Negative: Hypertension, Diabetes - Social History Lives: With Family Alcohol Use: Occasionally Substance Use Type: None Smoking Status (MU): Current Some Day Smoker Have You Smoked in the Last Year: No - Immunization History Most Recent Influenza Vaccination: 2014 Most Recent Tetanus Shot: UNSURE Most Recent Pneumonia Vaccination: UNSURE Review of Systems All Other Systems Reviewed And Are Negative: Yes Constitutional: Positive: Fever, Chills ENT: Positive: Nasal Discharge Respiratory: Positive: Shortness Of Breath, Cough - Productive cough of greenish sputum. Musculoskeletal: Positive: Other: - Left mid back pain with coughing. Is Patient Immunocompromised?: No Physical Exam Triage Information Reviewed: Yes Appearance: No Pain Distress, Well-Nourished, Ill-Appearing Vital Signs: Initial Vital Signs Temp 97.6 F 06/02/19 10:57 Pulse 81 06/02/19 10:57 Resp 18 06/02/19 10:57 BP 160/115 06/02/19 10:57 Pulse Ox 100 06/02/19 10:57 Vital Signs Reviewed: Yes Eyes: Positive: Conjunctiva Clear ENT: Positive: Pharyngeal erythema, Nasal congestion, TMs normal, Uvula midline Neck: Positive: Supple, Nontender, No Lymphadenopathy Respiratory: Positive: No respiratory distress, No accessory muscle use, Rhonchi - Scattered wheezing and rhonchi throughout. No distress., Wheezing Cardiovascular: Positive: RRR, No Murmur, Pulses Normal, Brisk Capillary Refill Musculoskeletal Exam: Normal Neurological Exam: Normal Psychological Exam: Normal Skin Exam: Normal Respiratory Course/Dx - Course Course Of Treatment: DuoNeb treatment: Patient felt much better following the DuoNeb treatment and felt like she was taking deeper breath of air. She is in no distress. Chest X-ray:FINDINGS: CARDIOMEDIASTINAL SILHOUETTE: The cardiomediastinal silhouette is normal. MARCUS: The marcus are normal. PLEURA: The costophrenic angles are sharp. No pleural abnormalities are noted. LUNG PARENCHYMA: There is hyperinflation with flattening of the diaphragm and expansion of the AP diameter of the chest. ABDOMEN: The upper abdomen is clear. There is no subphrenic gas. BONES AND SOFT TISSUES: No bone or soft tissue abnormalities are noted. OTHER: None. IMPRESSION: HYPERINFLATION, WHICH CAN BE SEEN WITH COPD OR REACTIVE AIRWAY DISEASE. NO ACTIVE CARDIOPULMONARY DISEASE. I am going to treat the patient with a prednisone taper however she did advise me she has prednisone at home and the last 3 days has taken 40 mg daily. She is going to start her prednisone taper today being day four. I also gave her prescription for a nebulizer which she did not have at home. - Differential Dx/Diagnosis Provider Diagnosis: Bronchitis Discharge ED - Sign-Out/Discharge Documenting (check all that apply): Patient Departure All imaging exams completed and their final reports reviewed: Yes - Discharge Plan Condition: Good Disposition: HOME Prescriptions: Albuterol 2.5MG/3ML (0.083%)* [Ventolin 2.5 MG/3 ML NEB.HAYDEE*] 2.5 mg INH Q4H PRN #30 units PRN Reason: Wheezing Azithromyxin ROBIN (NF) [Z-Robin (Zithromax) 250 mg tabs #6] 2 tab PO .TODAY, THEN 1 DAILY #6 tab predniSONE 10 mg TAB [Deltasone 10 MG TAB*] 10 mg PO DAILY 12 Days #32 tab Patient Education Materials: Acute Bronchitis (ED) Forms: *Work Release Referrals: Conchis Edwards MD [Primary Care Provider] - Additional Instructions: Increase fluids, use either your albuterol inhaler 2 puffs every 4 hours as needed for wheezing, or use your nebulizer every 4 hours as needed. Take the prednisone with food. Definite follow-up with your primary care provider in 3 or 4 days if no improvement or if continued fever. - Billing Disposition and Condition Condition: GOOD Disposition: Home
== END 2019-06-02 12:30 | disposition home or self-care (01) ==
LOC: UCCORT 10:32
DX: J45.909 Unspecified asthma, uncomplicated (principal); R91.8 Other nonspecific abnormal finding of lung field; E07.9 Disorder of thyroid, unspecified; F17.200 Nicotine dependence, unspecified, uncomplicated; Z88.0 Allergy status to penicillin; Z79.890 Hormone replacement therapy; Z79.899 Other long term (current) drug therapy
CPT/HCPCS: 71046; 99212; A9270-GY; G0463

== ENCOUNTER 2023-03-06 09:41 | Inpatient (IN) ==
[~2023-03-06 09:41] MED LIST changes: -Buffered Lidocaine 0.9% SYRIN* 5 ML/SYR SYRINGE INTRADERM ONE; -Buffered Lidocaine 0.9% SYRIN* 5 ML/SYR SYRINGE ONE; +Buffered Lidocaine 1% SYRIN 1 ml INTRADERM ONE; -Clindamycin 900 MG IVPREMIX(* 900 MG/50 ML SDV IV ONE; +HYDROcodone/ACETAMIN 5/325 mg TAB PO PRN; +Lactated Ringers 1000 ml BAG 1,000 ML IV SCH; +Metoclopramide 5 MG/ML VIAL (10 mg) IV PRN; +Naloxone 0.4 mg VIAL 0.4 mg/ml 1 ml VIAL IV PRN; +Ondansetron 4 mg VIAL 2 MG/ML 2 ml VIAL IV PRN
[2023-03-06] MEDS ORDERED: Heparin 5000 UNITS/ML 1 mL VIAL ONE (10:15)
[2023-03-06] MEDS ORDERED: Scopolamine 1 mg/72hr PATCH ONE (10:15)
[2023-03-06] MEDS ORDERED: Clindamycin 900 MG/50 **NS BAG 900 MG/50 ML BAG ONE ×2 (10:16→12:19)
[2023-03-06 11:07] LABS: Rapid COVID-19 Molecular Undetected (Undetected)
[2023-03-06] MEDS ORDERED: Ondansetron 4 mg VIAL 2 MG/ML 2 ml VIAL ONE (11:59)
[2023-03-06] MEDS ORDERED: Propofol 10 MG/ML 20 ML BTL ONE (11:59)
[2023-03-06] MEDS ORDERED: Dexamethasone IV 4 MG/ML VIAL 1 ml VIAL ONE (11:59)
[2023-03-06] MEDS ORDERED: Lidocaine 2% PF 5 ML VIAL ONE (11:59)
[2023-03-06] MEDS ORDERED: Midazolam 2 mg/2 ml VIAL 1 mg/ml 2 ml VIAL (2 mg) ONE (11:59)
[2023-03-06] MEDS ORDERED: Rocuronium 50 mg VIAL 10 mg/ml 5 ml VIAL (50 mg) ONE ×2 (12:00→14:37)
[2023-03-06] MEDS ORDERED: fentaNYL 250 mcg/5 ml 50 MCG/ML 5 ml VIAL (250 MCG) ONE (12:00)
[2023-03-06] MEDS ORDERED: Lidocaine 1% w EPI 1:100,000 MDV 20 ML VIAL ONE (13:09)
[2023-03-06] MEDS ORDERED: Bupivacaine 0.5% SDV PF 30ML VIAL ONE (13:09)
[2023-03-06] MEDS ORDERED: Methylene Blue 1% (ANTIDOTE) 10 MG/ML 1 ML SDV VIAL IVPB ONE (13:09)
[2023-03-06] MEDS ORDERED: Sevoflurane BOTTLE ONE (14:49)
[2023-03-06] MEDS ORDERED: HYDROmorphone 0.5 MG/0.5 ML SYRINGE ONE (15:21)
[2023-03-06] MEDS ORDERED: Acetaminophen IV 1 GM/100ML 1,000 MG/100 ML BAG IV PRN (15:51)
[2023-03-06] MEDS ORDERED: HYDROcodone/ACET. 7.5/325 LIQ 15 ML UDC PO PRN (16:01)
[2023-03-06] MEDS ORDERED: HYDROmorphone 0.5 MG/0.5 ML SYRINGE IV SLOW PU PRN (16:03)
[2023-03-06] MEDS ORDERED: fentaNYL 100 mcg/2 ml 50 MCG/ML VIAL ONE ×2 (16:28→17:21)
[2023-03-06] MEDS: fentaNYL 100 mcg/2 ml 50 MCG/ML VIAL IV PRN ×5 (16:29→17:22)
[2023-03-06] MEDS: Lactated Ringers 1000 ml BAG 1,000 ML IV SCH (17:52)
[2023-03-06] MEDS: Ondansetron 4 mg VIAL 2 MG/ML 2 ml VIAL IV PRN (20:11)
[2023-03-06] MEDS ORDERED: Famotidine IV 10 MG/ML 2 ml VIAL (20 mg) IV SLOW PU SCH (21:00)
[2023-03-06] MEDS: Heparin 5000 UNITS/ML 1 mL VIAL SUBCUT SCH (21:53)
[2023-03-07] MEDS: Lactated Ringers 1000 ml BAG 1,000 ML IV SCH ×2 (00:23→07:37)
[2023-03-07] MEDS: Heparin 5000 UNITS/ML 1 mL VIAL SUBCUT SCH ×2 (05:56→14:24)
[2023-03-07] MEDS: Ondansetron 4 mg VIAL 2 MG/ML 2 ml VIAL IV PRN (09:39)
[2023-03-07] MEDS ORDERED: CMCS: Solifenacin 5 mg TAB (NF) PO SCH (11:00)
[2023-03-07 14:06] VITALS: BP 114/80
[2023-03-07] MEDS ORDERED: D5W 1/2 NS KCl 20 meq 1000 ml 1,000 ML IV SCH (16:00)
== END 2023-03-07 18:20 | disposition home or self-care (01) | DRG 220 ==
LOC: AA 09:41 → SSU 17:45
PROVIDERS: ADMIT Surgery; ATTEND Surgery

== ENCOUNTER 2023-06-15 14:08 | Observation (INO) ==
[2023-06-15] MEDS: Ondansetron 4 mg VIAL 2 MG/ML 2 ml VIAL IV ONE (15:26)
[2023-06-15] MEDS: Thiamine 100 MG/ML 2 ml VIAL 100 MG, Folic Acid IV 1 MG, Multiple Vitamin IV ADULT 10 M... IV ONE (15:26)
[2023-06-15] MEDS: Lactated Ringers 1000 ml BAG 1,000 ML IV ONE (15:26)
[2023-06-15 15:44] LABS: ABS Basophils 0.2 10^3/uL (0.0-0.1); ABS Eosinophils 0.2 10^3/uL (0.0-0.5); ABS Lymphocytes 1.2 10^3/uL (1.0-4.8); ABS Monocytes 0.4 10^3/uL (0.0-0.9); ABS Nucleated RBC 0.01 10^3/ul; Eosinophil % 2.6 %; Hemoglobin 16.5 g/dL (11.5-14.3); Lymphocyte % 16.9 %; Mean Corpuscular Hgb Conc 34.5 g/dL (31-36); Mean Corpuscular Volume 92.7 fL (80-97); Mean Platelet Volume 9.3 fL (7.5-11.2); Nucleated Red Blood Cells % 0.2 %/100WBC (0.0-0.8); Platelet Count 239 10^3/uL (150-450); Red Blood Count 5.18 10^6/uL (3.63-4.92); Red Cell Distribution Width 13.2 % (12-17)
[2023-06-15 16:04] LABS: ALT 24 U/L (7-52); Albumin 4.7 g/dL (3.2-5.2); Albumin/Globulin Ratio 1.5 (1-3); Alkaline Phosphatase 101 U/L (35-149); Anion Gap 8 mmol/L (2-16); Blood Urea Nitrogen 7 mg/dL (6-24); C Reactive Protein 3.47 mg/L (<8.01); CO2 Carbon Dioxide 24 mmol/L (22-32); Calcium 9.6 mg/dL (8.6-10.3); Chloride 105 mmol/L (101-111); Creatinine, Serum 0.64 mg/dL (0.51-0.95); Globulin 3.1 g/dL (2-4); Glucose 89 mg/dL (70-100); Lipase 52 U/L (11.0-82.0); Sodium 137 mmol/L (135-145); Total Bilirubin 0.7 mg/dL (0.2-1.0); Total Protein 7.8 g/dL (6.4-8.9); eGFR CKD-EPI 114.5 (>60)
[2023-06-15] MEDS: HYDROmorphone 1 MG/1 ML SYRINGE IV ONE (16:09)
[2023-06-15 16:10] LABS: HCG Pregnancy < 0.60 mIU/mL
[2023-06-15] MEDS: Iohexol 300 (CONTRAST) 10 ML SDV IV ONE (16:49)
[2023-06-15 17:15] LABS: Magnesium 1.9 mg/dL (1.9-2.7); Potassium Redraw 3.4 mmol/L (3.5-5.0)
[2023-06-15] MEDS ORDERED: Ondansetron 4 mg VIAL 2 MG/ML 2 ml VIAL IV PRN (20:15)
[2023-06-15 20:24] LABS: Urine Appearance Clear; Urine Bilirubin Negative (Negative); Urine Blood Negative (Negative); Urine Color Yellow; Urine Glucose Negative (Negative); Urine Ketones 1+ (Negative); Urine Nitrite Negative (Negative); Urine Protein Negative (Negative); Urine Specific Gravity >1.050 (1.002-1.030); Urine Urobilinogen Negative (Negative)
[2023-06-15] MEDS: Pantoprazole VIAL 40 MG VIAL IV SCH (20:51)
[2023-06-15] MEDS: Lactated Ringers 1000 ml BAG 1,000 ML IV SCH (20:51)
[2023-06-15] MEDS: HYDROmorphone 0.5 MG/0.5 ML SYRINGE IV SLOW PU PRN (20:52)
[2023-06-15] MEDS: Famotidine IV 10 MG/ML 2 ml VIAL (20 mg) IV SLOW PU ONE (21:14)
[2023-06-15] MEDS: Al Hydrox/Mg Hydrox/Simet LIQ 30 ML UDC PO ONE (21:14)
[2023-06-16 06:33] LABS: ABS Eosinophils 0.2 10^3/uL (0.0-0.5); ABS Lymphocytes 1.4 10^3/uL (1.0-4.8); ABS Monocytes 0.3 10^3/uL (0.0-0.9); ABS Neutrophils 2.1 10^3/uL (1.5-7.6); ABS Nucleated RBC 0.01 10^3/ul; Hematocrit 36.3 % (35-45); Hemoglobin 12.8 g/dL (11.5-14.3); Lymphocyte % 34.3 %; Mean Corpuscular Hemoglobin 32.2 pg (27-33); Mean Corpuscular Hgb Conc 35.2 g/dL (31-36); Mean Corpuscular Volume 91.5 fL (80-97); Mean Platelet Volume 8.8 fL (7.5-11.2); Nucleated Red Blood Cells % 0.1 %/100WBC (0.0-0.8); Platelet Count 194 10^3/uL (150-450); Red Blood Count 3.97 10^6/uL (3.63-4.92); Red Cell Distribution Width 13.1 % (12-17)
[2023-06-16 06:52] LABS: Calcium 8.1 mg/dL (8.6-10.3); Creatinine, Serum 0.44 mg/dL (0.51-0.95); Potassium 3.6 mmol/L (3.5-5.0); eGFR CKD-EPI 125.3 (>60)
[2023-06-16] MEDS ORDERED: UBROGEPANT 50 MG TABLET PO PRN (11:11)
[2023-06-16] MEDS: Mometasone/Formoter 200/5 MDI INH SCH ×2 (11:18→20:01)
[2023-06-16] MEDS: CMC:Mirabegron 25 mg ER TAB (NF) PO SCH (12:35)
[2023-06-16] MEDS: Fluticasone NASAL SPRAY 50MCG 16 gm SPRAY BTL BOTH NARES SCH (20:38)
[2023-06-16] MEDS ORDERED: Fluticasone HFA 220 mcg(NF) MDI INH SCH (21:00)
[2023-06-17] MEDS ORDERED: Midazolam 2 mg/2 ml VIAL 1 mg/ml 2 ml VIAL (2 mg) ONE (07:39)
[2023-06-17] MEDS ORDERED: Scopolamine 1 mg/72hr PATCH ONE (08:26)
[2023-06-17] MEDS ORDERED: Naloxone 0.4 mg VIAL 0.4 mg/ml 1 ml VIAL IV PRN (08:27)
[2023-06-17] MEDS ORDERED: fentaNYL 100 mcg/2 ml 50 MCG/ML VIAL IV PRN (08:27)
[2023-06-17] MEDS: Scopolamine 1 mg/72hr PATCH TRANSDERM SCH (08:33)
[2023-06-17] MEDS: Buffered Lidocaine 1% SYRIN 1 ml INTRADERM ONE (09:55)
[2023-06-17] MEDS: Lactated Ringers 1000 ml BAG 1,000 ML IV SCH (10:01)
[2023-06-17 11:31] VITALS: BP 139/88
== END 2023-06-17 14:05 | disposition home or self-care (01) ==
LOC: ED 14:08 → EDHOLD 14:08 → MED 23:42
PROVIDERS: ADMIT Surgery; ATTEND Surgery